=== PATIENT | male | born 1965 | race Caucasian/White ===

== ENCOUNTER 2018-12-03 22:04 | Emergency (ER) | payer BC ==
--- OUTSIDE RECORDS SUMMARY | 2018-12-03 22:07 | XMS REPORT | Clinical Summary ---
:1965 Author Organization [facility] Address [address] [place] [address] Care Team Providers Name Role Phone Silvia Kincaid MD Primary Care Provider Allergies Active Allergy Reactions Severity Noted Date Comments Александр Inhibitors Hives 04/05/2016 Trazodone Hives 04/05/2016 Hymenoptera Allergenic Anaphylaxis, Shortness Of High 04/05/2016 Extract Breath Medications Medication Sig Dispensed Refills Start End Status Date Date fexofenadine (RAN) 0 Active 180 MG tablet FOLIC 0 09/13/19 Active ACID/MULTIVIT-MIN/LUTEI 01 N (CENTRUM SILVER ORAL) lutein 20 mg capsule 0 Active ascorbic acid, vitamin 0 Active C, (vitamin C) 1000 MG tablet ONETOUCH DELICA LANCETS Inject 1 200 each 1 02/27/20 Active 33 gauge application 17 miscIndications: Type 2 into the skin diabetes mellitus 2 (two) times without complication, a day. for unspecified terminal worker testing insulin use status aspirin (ECOTRIN) 81 MG Take 81 mg by 0 Active enteric coated tablet mouth daily. blood sugar diagnostic One touch 200 strip 1 09/11/19 Active strips (glucose blood) Verio test 18 strip test blood sugar stripsIndications: twice a day Diabetes mellitus without complication (HCC) BD INSULIN PEN NEEDLE USE UNDER THE 90 each 1 10/06/19 Active UF MINI 31 gauge x SKIN ONCE 18 09/27" DAILY needleIndications: Type 2 diabetes mellitus without complication, unspecified intermediate insulin use status esomeprazole (NexIUM) TAKE 1 CAPSULE 90 capsule 3 02/12/20 Active 40 MG DAILY BEFORE 18 capsuleIndications: BREAKFAST Gastroesophageal reflux disease, esophagitis presence not specified dapagliflozin-metformin TAKE 2 TABLETS 180 each 1 03/10/20 Active (XIGDUO XR) 5-1,000 mg DAILY (RETURN 18 tablet, IR & ER, FOR FASTING biphasic LABS ONE WEEK 24hrIndications: Type 2 PRIOR TO diabetes mellitus CLINIC VISIT without complication, WITH DRNava unspecified terminal worker PALASI) insulin use status atorvastatin (LIPITOR) TAKE 1 TABLET 90 tablet 1 10/28/19 Active 10 MG tablet DAILY 19 losartan (COZAAR) 100 TAKE 1 TABLET 90 tablet 1 10/28/19 Active MG tabletIndications: DAILY 19 Type 2 diabetes mellitus without complication (HCC) omega-3 acid ethyl TAKE 1 CAPSULE 180 capsule 1 10/28/19 Active esters (LOVAZA) 1 gram TWICE A DAY 19 capsuleIndications: Hypertriglyceridemia levothyroxine TAKE 1 TABLET 90 tablet 1 10/28/19 Active (SYNTHROID, LEVOXYL) 50 EVERY MORNING 19 mcg tabletIndications: Other specified hypothyroidism insulin GLARGINE Inject 44 15 mL 1 12/04/19 (LANTUS SOLOSTAR) 100 Units under 17 018 unit/mL injection the skin (pen)Indications: Type daily. 2 diabetes mellitus without complication, unspecified intermediate insulin use status atorvastatin (LIPITOR) TAKE 1 TABLET 90 tablet 1 06/20/20 Discontinued 10 MG tablet DAILY 17 018 XIGDUO XR 5-1,000 mg TAKE 2 TABLETS 180 each 1 08/23/19 Discontinued tablet, IR & ER, DAILY 18 018 biphasic 24hrIndications: Type 2 diabetes mellitus without complication, unspecified terminal worker insulin use status levothyroxine TAKE 1 TABLET 90 tablet 1 08/23/19 Discontinued (SYNTHROID, LEVOXYL) 50 EVERY MORNING 18 018 mcg tabletIndications: Other specified hypothyroidism losartan (COZAAR) 100 TAKE 1 TABLET 90 tablet 1 08/23/19 Discontinued MG tabletIndications: DAILY 18 018 Type 2 diabetes mellitus without complication, unspecified terminal worker insulin use status esomeprazole (NexIUM) TAKE 1 CAPSULE 30 capsule 0 08/23/19 Discontinued 40 MG DAILY BEFORE 18 018 capsuleIndications: BREAKFAST Gastroesophageal reflux disease with esophagitis hydrOXYzine (ATARAX) 25 Take 25 mg by 0 09/09/19 Discontinued MG tablet mouth daily. 18 019 ibuprofen-famotidine Take by mouth 0 Discontinued (DUEXIS) 800-26.6 mg 2 (two) times 019 tablet a day. omega-3 acid ethyl Take 1 capsule 180 capsule 1 09/11/19 Discontinued esters (LOVAZA) 1 gram (1 g total) by 18 018 capsuleIndications: mouth 2 (two) Hypertriglyceridemia times a day. hydrOXYzine (VISTARIL) Take 25 mg by 0 Discontinued 25 MG capsule mouth 3 019 (three) times a day as needed for itching. traZODone (DESYREL) 100 Take 100 mg by 0 Discontinued MG tablet mouth nightly. 018 esomeprazole (NexIUM) TAKE 1 CAPSULE 30 capsule 0 02/12/20 Discontinued 40 MG DAILY BEFORE 18 018 capsuleIndications: BREAKFAST Gastroesophageal reflux disease, esophagitis presence not specified losartan (COZAAR) 100 TAKE 1 TABLET 90 tablet 0 02/18/20 Discontinued MG tabletIndications: DAILY 18 018 Type 2 diabetes mellitus without complication, unspecified terminal worker insulin use status levothyroxine TAKE 1 TABLET 90 tablet 0 02/18/20 Discontinued (SYNTHROID, LEVOXYL) 50 EVERY MORNING 18 018 mcg tabletIndications: Other specified hypothyroidism XIGDUO XR 5-1,000 mg TAKE 2 TABLETS 180 each 0 02/18/20 Discontinued tablet, IR & ER, DAILY (RETURN 18 018 biphasic FOR FASTING 24hrIndications: Type 2 LABS ONE WEEK diabetes mellitus PRIOR TO without complication, CLINIC VISIT unspecified terminal worker WITH insulin use status PALASI) insulin GLARGINE 0 04/05/20 Discontinued (LANTUS SOLOSTAR) 100 16 019 unit/mL injection (pen) omega-3 acid ethyl Take 1 capsule 180 capsule 1 03/10/20 Discontinued esters (LOVAZA) 1 gram (1 g total) by 18 019 capsuleIndications: mouth 2 (two) Hypertriglyceridemia times a day. losartan (COZAAR) 100 Take 1 tablet 90 tablet 1 03/10/20 Discontinued MG tabletIndications: (100 mg total) 18 019 Type 2 diabetes by mouth mellitus without daily. complication, unspecified intermediate insulin use status levothyroxine Take 1 tablet 90 tablet 1 03/10/20 Discontinued (SYNTHROID, LEVOXYL) 50 (50 mcg total) 18 019 mcg tabletIndications: by mouth every Other specified morning. hypothyroidism atorvastatin (LIPITOR) Take 1 tablet 90 tablet 1 03/10/20 Discontinued 10 MG tablet (10 mg total) 18 019 by mouth daily. Active Problems Problem Noted Date Disease of thyroid gland 02/17/2018 Chronic back pain 08/03/2016 Hyperlipidemia 04/05/2016 Essential hypertension 04/05/2016 Non morbid obesity due to excess calories 04/05/2016 Encounters Date Type Specialty Care Team Description 10/25/2018 Refill Silvia Wynne Type 2 diabetes mellitus without complication (HCC); MD [facility] Hypertriglyceridemia; Other specified hypothyroidism 07/28/2018 Office Visit Sivlia Wynne Annual physical exam MD [facility] (Primary Dx) 07/10/2018 Orders Only Internal Medicine ProviderLiya MD 07/09/2018 Orders Only Silvia Wynne Type 2 diabetes mellitus without complication, unspecified whether intermediate insulin use (HCC) ( Primary Dx); MD [facility] Prostate cancer screening 05/09/2018 Clinical Support Silvia Wynne Need for influenza MD [facility] vaccination (Primary Dx) 03/10/2018 Lab Lab Silvia Kincaid Other specified MD [facility] hypothyroidism 03/10/2018 Office Visit Silvia Wynne Essential hypertension (Primary Dx); MD [facility] Type 2 diabetes mellitus without complication, unspecified intermediate insulin use status; Mixed hyperlipidemia; Hypertriglyceridemia; Other specified hypothyroidism 02/27/2018 Orders Only Silvia Wynne MD 02/17/2018 Orders Only Silvia Wynne Type 2 diabetes mellitus without complication, without long-term current use of insulin ( Primary Dx); MD [facility] Disease of thyroid gland 02/17/2018 Refill Silvia Wynne Type 2 diabetes mellitus without complication, unspecified intermediate insulin use status; MD [facility] Other specified hypothyroidism 02/11/2018 Office Visit Gastroenterology Boo Harper Gastroesophageal reflux disease, esophagitis presence not specified (Primary Dx); MD Amauri Gastroesophageal reflux disease with esophagitis after 12/02/2017 Immunizations Name Dates Previously Given Next Due FLUBLOK QUAD PF 05/09/2018 INFLUENZA QUAD PF 04/05/2016 Pneumococcal Conjugate 13-Valent 08/03/2016 Social History Tobacco Use Types Packs/Day Years Used Date Former Smoker Cigarettes 0.5 29 1983 - 05/14/2013 Smokeless Tobacco: Never Used Alcohol Use Drinks/Week oz/Week Comments Yes 2 Standard drinks or equivalent 2 drinks of vodka per week Sex Assigned at Date Recorded Not on file Job Start Date Occupation Industry Not on file Not on file Not on file Travel History Travel Start Travel End No recent travel history available. Last Filed Vital Signs Vital Sign Reading Time Taken Blood Pressure 155/88 07/28/2018 3:26 PM MATERIAL MANAGER Pulse 71 07/28/2018 3:26 PM MATERIAL MANAGER Temperature 36.8 C (98.3 F) 07/28/2018 3:26 PM MATERIAL MANAGER Respiratory Rate - - Oxygen Saturation 99% 07/28/2018 3:26 PM MATERIAL MANAGER Inhaled Oxygen Concentration - - Weight 80.7 kg (178 lb) 07/28/2018 3:26 PM MATERIAL MANAGER Height 177.8 cm (5' 10") 07/28/2018 3:26 PM MATERIAL MANAGER Body Mass Index 25.54 07/28/2018 3:26 PM MATERIAL MANAGER Plan of Treatment Date Type Specialty Care Team Description 01/23/2019 Office Visit Family Medicine Silvia Kincaid MD [address] [facility] [address] [place] [address] 03/04/2019 Office Visit Gastroenterology Boo Harper MD [address] [facility] [address] [facility] [place] [address] Health Maintenance Due Date Last Done Comments SHINGLES VACCINES (#1) 2016 DIABETIC FOOT EXAM 09/11/2018 09/11/2017, 09/11/2017, 05/03/2016 INFLUENZA VACCINE 02/12/2019 05/09/2018, 04/05/2016, 04/05/2016 DIABETIC RETINAL EYE EXAM 07/03/2019 07/03/2017, 08/22/2016 URINE MICROALBUMIN 07/12/2019 07/12/2018, 05/20/2017, 05/03/2016, Additional history exists COLON CANCER SCREENING 06/20/2026 06/20/2016 Procedures Procedure Name Priority Date/Time Associated Diagnosis Comments ECG 12-LEAD Routine 07/28/2018 4:07 Annual physical exam Results for this PM MATERIAL MANAGER procedure are in the results section. POC OCCULT BLOOD Routine 07/28/2018 4:01 Annual physical exam Results for this STOOL PM MATERIAL MANAGER procedure are in the results section. CBC WITH PLATELET AND Routine 07/12/2018 8:11 Type 2 diabetes Results for this DIFFERENTIAL AM MATERIAL MANAGER mellitus without procedure are in complication, the results unspecified whether section. intermediate insulin use (HCC) COMPREHENSIVE Routine 07/12/2018 8:11 Type 2 diabetes Results for this METABOLIC PANEL AM MATERIAL MANAGER mellitus without procedure are in complication, the results unspecified whether section. terminal worker insulin use (HCC) HEMOGLOBIN A1C Routine 07/12/2018 8:11 Type 2 diabetes Results for this AM MATERIAL MANAGER mellitus without procedure are in complication, the results unspecified whether section. intermediate insulin use (HCC) LIPID PANEL Routine 07/12/2018 8:11 Type 2 diabetes Results for this AM MATERIAL MANAGER mellitus without procedure are in complication, the results unspecified whether section. intermediate insulin use (HCC) MICROALBUMIN / Routine 07/12/2018 8:11 Type 2 diabetes Results for this CREATININE URINE AM MATERIAL MANAGER mellitus without procedure are in RATIO complication, the results unspecified whether section. terminal worker insulin use (HCC) PROSTATE SPECIFIC Routine 07/12/2018 8:11 Type 2 diabetes Results for this ANTIGEN AM MATERIAL MANAGER mellitus without procedure are in complication, the results unspecified whether section. intermediate insulin use (HCC) Prostate cancer screening URINALYSIS, AUTOMATED Routine 07/12/2018 8:11 Type 2 diabetes Results for this WITH MICROSCOPY AM MATERIAL MANAGER mellitus without procedure are in complication, the results unspecified whether section. terminal worker insulin use (HCC) OBTAIN MEDICAL Routine 07/10/2018 RECORDS THYROID STIMULATING Routine 03/10/2018 2:22 Other specified Results for this HORMONE PM CDT hypothyroidism procedure are in the results section. HEMOGLOBIN A1C Routine 02/27/2018 9:31 Results for this AM CDT procedure are in the results section. CBC WITH PLATELET AND Routine 02/27/2018 9:31 Results for this DIFFERENTIAL AM CDT procedure are in the results section. COMPREHENSIVE Routine 02/27/2018 9:31 Results for this METABOLIC PANEL AM CDT procedure are in the results section. LIPID PANEL Routine 02/27/2018 9:31 Results for this AM CDT procedure are in the results section. after 12/02/2017 Results ECG 12 lead (07/28/2018 4:07 PM MATERIAL MANAGER) Ventricular rate 60 [facility] Atrial rate 60 [facility] MD interval 148 [facility] QRSD interval 92 [facility] QT interval 410 [facility] QTC interval 410 [facility] P axis 1 55 [facility] QRS axis 1 16 [facility] T wave axis 42 [facility] EKG impression Normal sinus HM MUSE rhythm-Normal ECG-In automated comparison with ECG of 11-SEP-2017 11:51,-No significant change was found- Specimen Narrative Performed At Performing Organization Address City/State/Zipcode Phone Number [facility] [place] [address] [place] [address] POC occult blood stool (07/28/2018 4:01 PM MATERIAL MANAGER) Pathologist [facility] Fecal Occult Blood Negative Negative Specimen Stool Microalbumin / creatinine urine ratio (07/12/2018 8:11 AM MATERIAL MANAGER) Pathologist [facility] Creatinine, 218 20 - 320 [place] urine, random mg/dL [place] Microalbumin, 1.0 See Note: [facility] urine Comment: mg/dL [place] Reference Range: Reference Range Not established Microalbumin/crea 5 <30 mcg/mg [facility] tinine ratio Comment: creat [place] The ADA defines abnormalities in albumin excretion as follows: Category Result (mcg/mg creatinine) Normal<30 Microalbuminuria 30-299 Clinical albuminuria > UV=189 The ADA recommends that at least two of three specimens collected within a 3-6 month period be abnormal before considering a patient to be within a diagnostic category. Specimen Urine Narrative Performed At FASTING:YES [facility] FASTING: YES Resulting Agency Comment Performing Organization Information: Site ID: [id number] Name: [facility] Address: [address] [place] [phone] Director: Renetta Dacosta Performing Organization Address City/State/Zipcode Phone Number [facility] [place] [address] [place] [phone] Urinalysis, automated with microscopy (07/12/2018 8:11 AM MATERIAL MANAGER) Pathologist [facility] Color, UA DARK YELLOW YELLOW [facility] [place] Appearance CLEAR CLEAR [facility] [place] Specific gravity, 1.039 (H) 1.001 - 1.035 [facility] urine [place] pH, urine 5.5 5.0 - 8.0 [facility] [place] Glucose, urine 2+ (A) NEGATIVE [facility] [place] Bilirubin, UA NEGATIVE NEGATIVE [facility] [place] Ketones, UA TRACE (A) NEGATIVE [facility] [place] Occult blood, urine NEGATIVE NEGATIVE [facility] [place] Protein, UA NEGATIVE NEGATIVE [facility] [place] Nitrite, UA NEGATIVE NEGATIVE [facility] [place] Leukocyte esterase, NEGATIVE NEGATIVE [facility] UA [place] WBC, UA NONE SEEN < OR=5 /HPF [facility] [place] RBC, UA NONE SEEN < OR=2 /HPF [facility] [place] Squamous epithelial NONE SEEN < OR=5 /HPF [facility] cells, UA [place] Bacteria, UA NONE SEEN NONE SEEN /HPF [facility] [place] Hyaline casts, UA NONE SEEN NONE SEEN /LPF [facility] [place] Specimen Urine Narrative Performed At FASTING:YES [facility] FASTING: YES Resulting Agency Comment Performing Organization Information: Site ID: [id number] Name: [facility] Address: [address] [place] [phone] Director: Renetta Dacosta Performing Organization Address City/State/Zipcode Phone Number [facility] [place] [address] [place], [place] [id number] CBC with platelet and differential (07/12/2018 8:11 AM MATERIAL MANAGER)Only the most recent of2 resultswithin the time period is included. WBC 6.4 3.8 - 10.8 [facility] Thousand/uL [place] RBC 4.45 4.20 - 5.80 [facility] Million/uL [place] HGB 16.0 13.2 - 17.1 [facility] g/dL [place] HCT 45.9 38.5 - 50.0 % [facility] [place] MCV 103.1 (H) 80.0 - 100.0 [facility] fL [place] MCH 36.0 (H) 27.0 - 33.0 pg [facility] [place] MCHC 34.9 32.0 - 36.0 [facility] g/dL [place] RDW 12.3 11.0 - 15.0 % [facility] [place] Platelet count 239 140 - 400 [facility] Thousand/uL [place] MPV 10.7 7.5 - 12.5 fL [facility] [place] Neutrophils, absolute 2,630 1,500 - 7,800 [facility] cells/uL [place] Lymphocytes, absolute 2,362 850 - 3,900 [facility] cells/uL [place] Monocytes, absolute 691 200 - 950 [facility] cells/uL [place] Eosinophils, absolute 634 (H) 15 - 500 [facility] cells/uL [place] Basophils, absolute 83 0 - 200 [facility] cells/uL [place] Neutrophils 41.1 % [facility] [place] Lymphocytes 36.9 % [facility] [place] Monocytes 10.8 % [facility] [place] Eosinophils 9.9 % [facility] [place] Basophils + RC 1.3 % [facility] [place] Specimen Blood Narrative Performed At FASTING:YES [facility] FASTING: YES Resulting Agency Comment Performing Organization Information: Site ID: [facility] Name: [facility] Address: [address] [place] [phone] Director: Renetta Dacosta Performing Organization Address [facility] Phone Number [facility] [place] [address] Prostate specific antigen (07/12/2018 8:11 AM MATERIAL MANAGER) PSA 1.0 < OR=4.0 [facility] Comment: ng/mL [place] The total PSA value from this assay system is standardized against the WHO standard. The test result will be approximately 20% lower when compared to the equimolar-standardized total PSA (Rupinder [place]). Comparison of serial PSA results should be interpreted with this fact in mind. This test was performed using the Siemens chemiluminescent method. Values obtained from different assay methods cannot be used interchangeably. PSA levels, regardless of value, should not be interpreted as absolute evidence of the presence or absence of disease. Specimen Blood Narrative Performed At FASTING:YES [facility] FASTING: YES Resulting Agency Comment Performing Organization Information: Site ID: [facility] Name: [facility] Address: [address] [place] [phone] Director: Renetta Dacosta Performing Organization Address [facility] Phone Number [facility] [place] [address] [address] Hemoglobin A1c (07/12/2018 8:11 AM MATERIAL MANAGER)Only the most recent of2 resultswithin the time period is included. Hemoglobin A1C 5.1 <5.7 % of [facility] Comment: total Hgb [place] For the purpose of screening for the presence of diabetes: <5.7% Consistent with the absence of diabetes 5.7-6.4%Consistent with increased risk for diabetes (prediabetes) > or=6.5%Consistent with diabetes This assay result is consistent with a decreased risk of diabetes. Currently, no consensus exists regarding use of hemoglobin A1c for diagnosis of diabetes in children. According to [place] Diabetes Association (ADA) guidelines, hemoglobin A1c <7.0% represents optimal control in non- diabetic patients. Different metrics may apply to specific patient populations. Standards of Medical Care in Diabetes(ADA). Specimen Blood Narrative Performed At FASTING:YES [facility] FASTING: YES Resulting Agency Comment Performing Organization Information: Site ID: [facility] Name: [facility] Address: [address] [place] [phone] Director: Renetta Dacosta Performing Organization Address City/State/Zipcode Phone Number [facility] [place] [address] [address] Lipid panel (07/12/2018 8:11 AM MATERIAL MANAGER)Only the most recent of2 resultswithin the time period is included. [facility] Cholesterol, total 154 <200 mg/dL [facility] [place] HDL cholesterol 91 >40 mg/dL [facility] [place] Triglycerides 120 <150 mg/dL [facility] [place] LDL cholesterol 42 mg/dL (calc) [facility] calculated Comment: [place] Reference range: <100 Desirable range <100 mg/dL for primary prevention; <70 mg/dL for patients with CHD or diabetic patients with > or=2 CHD risk factors. LDL-C is now calculated using the Gus-Hortencia calculation, which is a validated novel method providing better accuracy than the Friedewald equation in the estimation of LDL-C. Gus DELGADO et al. AMANDO. 2013;310(19): 5395-7778 (http://education.Freeppie.Relevant e-solution/faq/TKI803) Cholesterol/HDL 1.7 <5.0 (calc) [facility] Non-HDL cholesterol 63 <130 mg/dL [place] Comment: (calc) [place] For patients with diabetes plus 1 major ASCVD risk factor, treating to a non-HDL-C goal of <100 mg/dL (LDL-C of <70 mg/dL) is considered a therapeutic option. Specimen Blood Narrative Performed At FASTING:YES [facility] FASTING: YES Resulting Agency Comment Performing Organization Information: Site ID: [id number] Name: [facility] Address: [address] [place] [phone] Director: Renetta Dacosta Performing Organization Address City/State/Zipcode Phone Number [facility] [place] [address] [place] [address] Comprehensive metabolic panel (07/12/2018 8:11 AM MATERIAL MANAGER)Only the most recent of2 resultswithin the time period is included. Glucose 107 (H) 65 - 99 [facility] Comment: mg/dL [place] Fasting reference interval For someone without known diabetes, a glucose value between 100 and 125 mg/dL is consistent with prediabetes and should be confirmed with a follow-up test. BUN, whole blood 10 7 - 25 mg/dL [facility] [place] Creatinine 1.01 0.70 - 1.33 [facility] Comment: mg/dL [place] For patients >49 years of age, the reference limit for Creatinine is approximately 13% higher for people identified as -Serbian. EGFR Non-Afr. 86 > OR=60 [facility] Serbian mL/min/1.73m [place] 2 EGFR 99 > OR=60 [facility] Serbian mL/min/1.73m [place] 2 BUN/creatinine NOT APPLICABLE 6 - 22 [facility] ratio (calc) [place] Sodium 141 135 - 146 [facility] mmol/L [place] Potassium 4.3 3.5 - 5.3 [facility] mmol/L [place] Chloride 105 98 - 110 [facility] mmol/L [place] CO2 26 20 - 32 [facility] mmol/L [place] Calcium 9.7 8.6 - 10.3 [facility] mg/dL [place] Protein 7.0 6.1 - 8.1 [facility] g/dL [place] Albumin, S 4.3 3.6 - 5.1 [facility] g/dL [place] Globulin, total 2.7 1.9 - 3.7 [facility] g/dL (calc) [place] Albumin/globulin 1.6 1.0 - 2.5 [facility] ratio (calc) [place] Total bilirubin 0.7 0.2 - 1.2 [facility] mg/dL [place] Alkaline 46 40 - 115 U/L [facility] phosphatase [place] AST 47 (H) 10 - 35 U/L [facility] [place] ALT 44 9 - 46 U/L [facility] [place] Specimen Blood Narrative Performed At FASTING:YES [facility] FASTING: YES Resulting Agency Comment Performing Organization Information: Site ID: [id number] Name: [facility] Address: [address] [place] [phone] Director: Renetta Dacosta Performing Organization Address City/State/Zipcode Phone Number [facility] [place] [address] [place] [phone] Obtain medical records (07/10/2018) Narrative Performed At Thyroid stimulating hormone (03/10/2018 2:22 PM CDT) TSH 0.64 0.40 - 4.50 mIU/L [facility] [place] Specimen Blood Resulting Agency Comment Performing Organization Information: Site ID: [id number] Name: [facility] Address: [address] [place] [phone] Director: Renetta Dacosta Performing Organization Address City/State/[facility] Phone Number [facility] [place] [address] [place] [phone] after 12/02/2017 Advance Directives Patient has advance care planning documents on file. For more information, please contact:[place] [address]
--- NOTE | 2018-12-03 23:52 | EDPHYS ---
Physician Documentation [facility] Name: Mack Charles Age: 53 yrs Sex: Male : 1965 Arrival Date: 12/03/2018 Time: 22:08 Bed 8 Private MD: ED Physician Nickolas Castillo HPI: 12/03 22:45 This 53 yrs old Male presents to ER via Ambulatory with complaints of Leg cp Pain. 22:45 The patient presents with pain, that is acute, tenderness, bruising. The complaints cp affect the medial aspect of right calf and right bob. Context: resulted from an unknown cause, the patient can fully bear weight, the patient is able to ambulate, without difficulty. Onset: The symptoms/episode began/occurred yesterday. Modifying factors: the symptoms are aggravated by weight bearing. Associated signs and symptoms: Pertinent negatives fever, swelling, warmth. Treatment prior to arrival includes: no previous treatment. Historical: - Allergies: 22:14 AYANNA INHIBITORS (Hives); ed1 22:14 Trazodone (Hives); ed1 22:14 Bees (Anaphylaxis); ed1 - Home Meds: 22:14 Yuki Allergy 180 mg Oral tab 1 tab once daily for Seasonal Allergic Rhinitis ed1 [Active]; aspirin 81 mg oral chew 1 tab once daily [Active]; levothyroxine 50 mcg tab 1 tab once daily for Hypothyroidism [Active]; Vitamin C 1,000 mg Oral tab [Active]; Centrum Silver 400-250 mcg Oral chew [Active]; lutein 20 mg Oral cap daily [Active]; Xigduo XR 5-1,000 mg Oral TBph 1 tab once daily for Type 2 Diabetes Mellitus [Active]; losartan 100 mg Oral tab 1 tab once daily for Hypertension [Active]; atorvastatin 10 mg Oral tab 1 tab once daily [Active]; esomeprazole magnesium 40 mg Oral cpDR 1 cap once daily for Heartburn [Active]; - PMHx: 22:14 acid reflux; Diabetes - IDDM; Hyperlipidemia; Hypertension; Hypothyroidism; ed1 - PSHx: 22:14 eye surgery; Hernia repair; left leg; right arm; ed1 - Immunization history:: Adult Immunizations up to date. - Social history:: Smoking status: Patient/guardian denies using tobacco. - Ebola Screening: : Patient negative for fever greater than or equal to 101.5 degrees Fahrenheit, and additional compatible Ebola Virus Disease symptoms Patient denies exposure to infectious person Patient denies travel to an Ebola-affected area in the 21 days before illness onset No symptoms or risks identified at this time. ROS: 22:50 Constitutional: Negative for body aches, chills, fever. cp 22:50 Eyes: Negative for injury, pain, redness, and discharge. cp 22:50 Cardiovascular: Negative for chest pain, palpitations. 22:50 Respiratory: Negative for cough, shortness of breath, wheezing. 22:50 Abdomen/GI: Negative for abdominal pain, nausea, vomiting, and diarrhea. 22:50 MS/extremity: Positive for pain, tenderness, of the right bob and medial aspect of right calf, bruising. 22:50 Skin: Negative for cellulitis, rash. 22:50 Neuro: Negative for headache, weakness. 22:50 All other systems are negative. Exam: 23:00 Constitutional: The patient appears in no acute distress, alert, awake, non-toxic, well cp developed, well nourished. 23:00 Head/Face: Normocephalic, atraumatic. cp 23:00 Chest/axilla: Inspection: normal. 23:00 Cardiovascular: Rate: normal. 23:00 Respiratory: the patient does not display signs of respiratory distress, Respirations: normal, no use of accessory muscles, no retractions, no tachypnea. 23:00 Back: pain, is absent, ROM is normal. 23:00 Musculoskeletal/extremity: Extremities: grossly normal except: noted in the right bob and medial aspect of right calf: tenderness, There is no evidence of erythema, rash, swelling, Perfusion: the extremity is normally perfused throughout, Sensation intact. 23:00 Skin: cellulitis, is not appreciated, no rash present. Vital Signs: 22:14 BP 116 / 67; Pulse 82; Resp 15; Temp 96.8(TE); Pulse Ox 96% on R/A; Weight 75.75 kg; ed1 Height 5 ft. 11 in. (180.34 cm); Pain 8/10; 23:37 BP 90 / 59; Pulse 58; Resp 15; Temp 97.9; Pulse Ox 96% on R/A; ak1 22:14 Body Mass Index 23.29 (75.75 kg, 180.34 cm) ed1 MDM: 22:35 Patient medically screened. cp 23:50 ED course: xrays of right tib/fib negative for fracture. cp 23:50 ED course: preliminary US report negative for DVT. cp 23:51 Data reviewed: vital signs, nurses notes, radiologic studies, plain films, ultrasound, cp and as a result, I will discharge patient. 23:51 Differential diagnosis: closed fracture, contusion, DVT, cellulitis. Test cp interpretation: by ED physician or midlevel provider: plain radiologic studies, xrays of right tib/fib negative for fracture. Counseling: I had a detailed discussion with the patient and/or guardian regarding: the historical points, exam findings, and any diagnostic results supporting the discharge/admit diagnosis, radiology results, the need for outpatient follow up, a family practitioner, to return to the emergency department if symptoms worsen or persist or if there are any questions or concerns that arise at home. 12/03 22:40 Order name: US Extremity Venous Unilateral Ltd cp 12/03 22:40 Order name: XRAY Tib Fib RIGHT cp Administered Medications: No medications were administered Disposition: 12/04 22:47 Co-signature as Attending Physician, Nickolas Castillo MD. Disposition: 12/03/18 23:52 Discharged to Home. Impression: Pain in right lower leg. - Condition is Stable. - Discharge Instructions: Musculoskeletal Pain. - Prescriptions for Naprosyn 500 mg Oral Tablet - take 1 tablet by ORAL route 2 times per day take with food; 20 tablet. - Medication Reconciliation Form, Thank You Letter, Antibiotic Education, Prescription Opioid Use form. - Follow up: Private Physician; When: 2 - 3 days; Reason: Worsening of condition. - Problem is new. - Symptoms have improved. Signatures: Dispatcher [employer] EDMS Tana Ng RN RN ed1 Sheba Vega RN RN ak1 Ellis Zepeda PA PA cp Nickolas Castillo MD MD Corrections: (The following items were deleted from the chart) 00:05 12/03 23:52 12/03/2018 23:52 Discharged to Home. Impression: Pain in right lower leg. ak1 Condition is Stable. Forms are Medication Reconciliation Form, Thank You Letter, Antibiotic Education, Prescription Opioid Use. Follow up: Private Physician; When: 2 - 3 days; Reason: Worsening of condition. Problem is new. Symptoms have improved. cp
--- NOTE | 2018-12-03 23:52 | ER ---
Nurse's Notes [facility] Name: Mack Charles Age: 53 yrs Sex: Male : 1965 Arrival Date: 12/03/2018 Time: 22:08 Bed 8 Private MD: Diagnosis: Pain in right lower leg Presentation: 12/03 22:08 Presenting complaint: Patient states: I think I hit my leg on something yesterday and ed1 today it is bruising and hurting worse. Transition of care: patient was not received from another setting of care. Onset of symptoms was December 02, 2018. Risk Assessment: Do you want to hurt yourself or someone else? Patient reports no desire to harm self or others. Initial Sepsis Screen: Does the patient meet any 2 criteria? No. Patient's initial sepsis screen is negative. Does the patient have a suspected source of infection? No. Patient's initial sepsis screen is negative. Care prior to arrival: None. 22:08 Method Of Arrival: Ambulatory ed1 22:08 Acuity: [place] 4 ed1 Triage Assessment: 22:14 General: Appears in no apparent distress. Behavior is calm, cooperative. Pain: ed1 Complains of pain in right leg Pain currently is 8 out of 10 on a pain scale. Historical: - Allergies: 22:14 AYANNA INHIBITORS (Hives); ed1 22:14 Trazodone (Hives); ed1 22:14 Bees (Anaphylaxis); ed1 - Home Meds: 22:14 Yuki Allergy 180 mg Oral tab 1 tab once daily for Seasonal Allergic Rhinitis ed1 [Active]; aspirin 81 mg oral chew 1 tab once daily [Active]; levothyroxine 50 mcg tab 1 tab once daily for Hypothyroidism [Active]; Vitamin C 1,000 mg Oral tab [Active]; Centrum Silver 400-250 mcg Oral chew [Active]; lutein 20 mg Oral cap daily [Active]; Xigduo XR 5-1,000 mg Oral TBph 1 tab once daily for Type 2 Diabetes Mellitus [Active]; losartan 100 mg Oral tab 1 tab once daily for Hypertension [Active]; atorvastatin 10 mg Oral tab 1 tab once daily [Active]; esomeprazole magnesium 40 mg Oral cpDR 1 cap once daily for Heartburn [Active]; - PMHx: 22:14 acid reflux; Diabetes - IDDM; Hyperlipidemia; Hypertension; Hypothyroidism; ed1 - PSHx: 22:14 eye surgery; Hernia repair; left leg; right arm; ed1 - Immunization history:: Adult Immunizations up to date. - Social history:: Smoking status: Patient/guardian denies using tobacco. - Ebola Screening: : Patient negative for fever greater than or equal to 101.5 degrees Fahrenheit, and additional compatible Ebola Virus Disease symptoms Patient denies exposure to infectious person Patient denies travel to an Ebola-affected area in the 21 days before illness onset No symptoms or risks identified at this time. Screenin:29 Abuse screen: Denies threats or abuse. Denies injuries from another. Nutritional ak1 screening: No deficits noted. Tuberculosis screening: No symptoms or risk factors identified. Fall Risk None identified. Assessment: 22:30 Reassessment: pt ambulated to ER8 from ER lobby with steady gait. ak1 23:36 Reassessment: Patient appears in no apparent distress at this time. No changes from ak1 previously documented assessment. Patient and/or family updated on plan of care and expected duration. Pain level reassessed. Patient is alert, oriented x 3, equal unlabored respirations, skin warm/dry/pink. 23:37 General: Appears in no apparent distress. Behavior is calm, cooperative. Pain: ak1 Complains of pain in right leg. Neuro: No deficits noted. Cardiovascular: No deficits noted. Respiratory: No deficits noted. GI: No signs and/or symptoms were reported involving the gastrointestinal system. : No signs and/or symptoms were reported regarding the genitourinary system. EENT: No signs and/or symptoms were reported regarding the EENT system. Derm: Bruising that is multiple small bruises noted to right lower leg in different stages of healing. . Musculoskeletal: Range of motion: intact in all extremities. Vital Signs: 22:14 BP 116 / 67; Pulse 82; Resp 15; Temp 96.8(TE); Pulse Ox 96% on R/A; Weight 75.75 kg; ed1 Height 5 ft. 11 in. (180.34 cm); Pain 8/10; 23:37 BP 90 / 59; Pulse 58; Resp 15; Temp 97.9; Pulse Ox 96% on R/A; ak1 22:14 Body Mass Index 23.29 (75.75 kg, 180.34 cm) ed1 ED Course: 22:08 Patient arrived in ED. ed1 22:11 Triage completed. ed1 22:14 Arm band placed on right wrist. ed1 22:17 Sheba Vega, RN is Primary Nurse. ak1 22:34 Ellis Zepeda PA is PHCP. cp 22:35 Ellis Zepeda PA is PHCP. cp 22:35 Nickolas Castillo MD is Attending Physician. cp 22:43 Radiology exam delayed due to ultrasound in room. bb2 22:55 US Extremity Venous Unilateral Ltd In Process Unspecified. EDMS 22:59 XRAY Tib Fib RIGHT In Process Unspecified. EDMS 23:38 Patient has correct armband on for positive identification. Bed in low position. Call ak1 light in reach. Side rails up X 1. Adult w/ patient. Pulse ox on. NIBP on. 12/04 00:05 No provider procedures requiring assistance completed. Patient did not have IV access ak1 during this emergency room visit. Administered Medications: No medications were administered Outcome: 12/03 23:52 Discharge ordered by . cp 12/04 00:05 Discharged to home ambulatory, with family. ak1 Condition: good Discharge instructions given to patient, family, Instructed on discharge instructions, follow up and referral plans. no drinking with medication, no driving heavy equipment, medication usage, Demonstrated understanding of instructions, follow-up care, medications, Prescriptions given X 1. 00:05 Patient left the ED. ak1 Signatures: Dispatcher [employer] EDMS Tana Ng RN RN ed1 Sheba Vega, RN RN ak1 Ellis Zepeda PA PA Susan Salas bb2
[2018-12-04 00:59] VITALS: O2SAT 96
[2018-12-04 01:01] VITALS: BP 90/59; TEMP 97.9
--- NOTE | 2018-12-04 07:10 | RAD REPORT ---
EXAM DESCRIPTION: US - Extremity Venous Uni Ltd - 12/03/2018 10:56 pm CLINICAL HISTORY: Right leg pain and swelling COMPARISON: None. TECHNIQUE: Real-time sonographic evaluation of the right lower extremity deep venous systems was per formed. FINDINGS: Normal compressibility, flow augmentation, phasic flow and spontaneous flow are identified in the right lower extremity common femoral, superficial femoral, popliteal and posterior tibial vei ns. No intraluminal filling defects seen. IMPRESSION: No DVT in the right lower extremity.
--- NOTE | 2018-12-04 08:03 | RAD REPORT ---
EXAM DESCRIPTION: RAD - Tib Fib Right - 12/03/2018 11:03 pm CLINICAL HISTORY: Persistent leg pain following blunt force trauma COMPARISON: None. FINDINGS: No fracture is identified. There is no dislocation or periosteal reaction noted. No acute or suspicious bony finding. No foreign body or other soft tissue abnormality. IMPRESSION: Negative right tibia & fibula examination.
== END 2018-12-04 00:05 | disposition home or self-care (01) ==
LOC: ER 22:04
DX: M79.661 Pain in right lower leg (principal); I10 Essential (primary) hypertension; E03.9 Hypothyroidism, unspecified; E11.9 Type 2 diabetes mellitus without complications; E78.5 Hyperlipidemia, unspecified; J30.2 Other seasonal allergic rhinitis; Z79.82 Long term (current) use of aspirin; Z88.5 Allergy status to narcotic agent; Z88.8 Allergy status to other drugs, medicaments and biological substances; Z91.030 Bee allergy status
CPT/HCPCS: 93971; 99283

== ENCOUNTER 2019-11-04 11:44 | Emergency (ER) | payer BC ==
--- OUTSIDE RECORDS SUMMARY | 2019-11-04 11:46 | XMS REPORT | Summary of Care ---
:1965 Author Organization [facility] [place] [address] Care Team Providers Name Role Phone Unavailable Primary Care Provider Unavailable Reason for Visit Reason Comments Eczema Encounter Details Date Type Department Care Team Description 02/23/2019 Office Visit [facility] Dermat Blake Rm MD Eczema [address] [facility] [id number] [place] [address] [address] [place], [place] [address] [phone] Allergies Active Allergy Reactions Severity Noted Date Comments Александр Inhibitors 06/24/2017 Trazodone And Nefazodone 06/24/2017 documented as of this encounter (statuses as of 02/23/2019) Medications Medication Sig Dispensed Refills Start Date End Date Status Ascorbic Acid (VITAMIN Take 1,000 mg by 0 Active C) 1000 MG TABS mouth. esomeprazole (NEXIUM) Take 40 mg by 0 Active 40 MG capsule mouth. fexofenadine (RAN) Take 180 mg by 0 Active 180 MG tablet mouth. losartan (COZAAR) 100 Take 100 mg by 0 Active MG tablet mouth. Lutein 20 MG CAPS Take by mouth. 0 Active atorvastatin (LIPITOR) TAKE 1 TABLET 0 06/20/2017 Active 10 MG tablet DAILY tacrolimus (PROTOPIC) Apply to upper 30 g 0 09/16/2018 Active 0.1 % eyelid rash once ointmentIndications: a day for 2 Eczema of left eyelid weeks. aspirin EC 81 MG TBEC Take 81 mg by 0 Active mouth daily. SYNTHROID 50 MCG tablet 0 01/14/2019 Active Multiple Take by mouth. 0 Acti ve Vitamins-Minerals (MULTIVITAL OR) documented as of this encounter (statuses as of 02/23/2019) Active Problems No known active problemsdocumented as of this encounter (statuses as of 02/23/2019) Social History Tobacco Use Types Packs/Day Years Used Date Former Smoker Smokeless Tobacco: Current User Sex Assigned at Date Recorded Not on file Job Start Date Occupation Industry Not on file Not on file Not on file Travel History Travel Start Travel End No recent travel history available. documented as of this encounter Last Filed Vital Signs Vital Sign Reading Time Taken Comments Blood Pressure 111/67 02/23/2019 1:26 PM CDT Pulse 95 02/23/2019 1:26 PM CDT Temperature - - Respiratory Rate - - Oxygen Saturation - - Inhaled Oxygen Concentration - - Weight 77.1 kg (170 lb) 02/23/2019 1:26 PM CDT Height 180.3 cm (5' 11") 02/23/2019 1:26 PM CDT Body Mass Index 23.71 02/23/2019 1:26 PM CDT documented in this encounter Progress Notes Blake Sharp MD - 02/23/2019 1:45 PM CDT Name: Jose Charles Date: 02/23/19 Chief Complaint: Chief Complaint Patient presents with Eczema HPI: Jose Charles is a 53 y.o. male who presents for left upper eyelid eczema. It resolved with Tacrolimus ointment after 2 weeks but it came back. It itches. It resolves when working outside. He did not have any irritation with Tacrolimus ointment. He has not used Tacrolimus ointment since the first2 weeks. He does not have it elsewhere. He had some left tear duct blockage recently per patient which cleared. PMH: (-) for personal history of skin cancer FH: Adopted. Medications: Current Outpatient Medications: Ascorbic Acid (VITAMIN C) 1000 MG TABS, Take 1,000 mg by mouth., Disp: , Rfl: aspirin EC 81 MG TBEC, Take 81 mg by mouth daily., Disp: , Rfl: atorvastatin (LIPITOR) 10 MG tablet, TAKE 1 TABLET DAILY, Disp: , Rfl: esomeprazole (NEXIUM) 40 MG capsule, Take 40 mg by mouth., Disp: , Rfl: fexofenadine (RAN) 180 MG tablet, Take 180 mg by mouth., Disp: , Rfl: losartan (COZAAR) 100 MG tablet, Take 100 mg by mouth., Disp: , Rfl: Lutein 20 MG CAPS, Take by mouth., Disp: , Rfl: Multiple Vitamins-Minerals (MULTIVITAL OR), Take by mouth., Disp: , Rfl: SYNTHROID 50 MCG tablet, , Disp: , Rfl: tacrolimus (PROTOPIC) 0.1 % ointment, Apply to upper eyelid rash once a day for 2 weeks., Disp:30 g, Rfl: 0 ROS: Constitutional: (-) for fevers, (-) for chills Skin: (+) for rash, (+) for pruritus Physical Exam: Vitals: Blood pressure 111/67, pulse 95, height 5' 11" (1.803 m), weight 170 lb (77.1 kg). Constitutional: well developed, well nourished, not diaphoretic, not distressed HEENT: normocephalic, atraumatic Neurologic: alert and oriented. Normal mood and affect. Skin: warm and dry Mildly eczematous erythematous plaque on left upper medial eyelid He declined general skin exam. Assessment and Plan: 1. Eyelid eczema (left) - I advised him to restart Tacrolimus ointment 0.1% daily as needed for a 2-4 weeks until cleared, then 1-2 times a week as needed. Risk of burning sensation and the boxed warning of malignancy discussed. - Moisturize with Vaseline petroleum jelly. - Continue mild products. Return to clinic in 6 months or sooner as needed. Blake Sharp MD documented in this encounter Plan of Treatment Health Maintenance Due Date Last Done Comments COLON CANCER SCREENING: COLONOSCOPY 1965 TETANUS SHOT (ADULT) 1981 HIV SCREENING 1984 FLU VACCINE > 6 MONTHS 02/12/2019 PREVNAR >= 65 (PCV13) 2031 08/03/2016 documented as of this encounter Results Not on filedocumented in this encounter Visit Diagnoses Diagnosis Eczema of left eyelid - Primary Eczematous dermatitis of eyelid documented in this encounter Insurance Payer Benefit Plan / Subscriber ID Effective Dates Phone Addre ss Type Group BLUE CROSS OUT OF STATE xxxxxxxxxxxx Effective for all [address] [facility] - dates [facility] [id number] Guarantor Name Account Type Relation to Date of Phone Billing Patient Address Jose Charles Personal/Family Self 1965 [phone] [address] (Home) [facility] [phone] [place] [address] (Work) documented as of this encounter
--- OUTSIDE RECORDS SUMMARY | 2019-11-04 11:46 | XMS REPORT ---
:1965 Author Organization [facility] t Address [address] [place] [address] Dr. Chambers [address] [place] [address] Care Team Providers Name Role Phone Unavailable Unavailable Unavailable Problems This patient has no known problems. Allergies, Adverse Reactions, Alerts This patient has no known allergies or adverse reactions. Medications This patient has no known medications.
--- OUTSIDE RECORDS SUMMARY | 2019-11-04 11:47 | XMS REPORT | Summary of Care ---
:1965 Author Organization [facility] - [facility] Address [address] [place] [id number] Care Team Providers Name Role Phone Vivien Kincaid Primary Care Provider Reason for Referral MRI/CAT Scan (EDILMA) Status Reason Specialty Diagnoses / Referred By Referred To Procedures Contact Contact New Request Diagnostic Diagnoses Acute intractable headache, unspecified headache type Alok, K Radiology [place] [address] [place] [phone] Radiology Services (EDILMA) Status Reason Specialty Diagnoses / Referred By Referred To Procedures Contact Contact New Request Diagnostic Diagnoses Acute intractable headache, unspecified headache type Alok, K Radiology Procedures [place]R CHEST 1 [place] [address] [place] [phone] Reason for Visit Reason Comments Headache Auth/Cert Status Reason Specialty Diagnoses / Referred By Referred To Procedures Contact Contact Emergency Medicine Ad[facility] Em ergency Dept [address] [facility] [place] [address] Fax: Encounter Details Date Type Department Care Team Description 08/28/2019 Emergency ADC-Emergency Alok, K Noemi, Acute intr actable Department PAC headache, unspecified [address] [place] [address] [place] [address] headache type ([place] [address] ELAINE 5200 Dx) [phone] [place] [address] Allergies Active Allergy Reactions Severity Noted Date Comments Александр Inhibitors Hives 08/28/2019 Bee Sting / Venom Swelling 08/28/2019 Trazodone Hives 08/28/2019 documented as of this encounter (statuses as of 08/28/2019) Medications Medication Sig Dispensed Refills Start Date End Date Status ibuprofen 600 mg Take 1 tablet by 30 tablet 0 08/28/2019 Active tabletIndications: mouth every 6 Acute intractable (six) hours as headache, unspecified needed for Pain headache type (scale 4-6). documented as of this encounter (statuses as of 08/28/2019) Active Problems Not on filedocumented as of this encounter (statuses as of 08/28/2019) Social History Tobacco Use Types Packs/Day Years Used Date Never Assessed Sex Assigned at Date Recorded Not on file Job Start Date Occupation Industry Not on file Not on file Not on file Travel History Travel Start Travel End No recent travel history available. documented as of this encounter Last Filed Vital Signs Vital Sign Reading Time Taken Comments Blood Pressure 153/90 08/28/2019 12:35 PM TICKETING CLERK Pulse 48 08/28/2019 12:35 PM TICKETING CLERK Temperature 36.6 C (97.9 F) 08/28/2019 9:47 AM TICKETING CLERK Respiratory Rate 16 08/28/2019 12:35 PM TICKETING CLERK Oxygen Saturation 100% 08/28/2019 12:35 PM TICKETING CLERK Inhaled Oxygen Concentration - - Weight 81.6 kg (180 lb) 08/28/2019 9:47 AM TICKETING CLERK Height - - Body Mass Index - - documented in this encounter Discharge Instructions AttachmentsThe following attachments cannot be sent through Care Everywhere. Headaches, Self-Care for (Greenlandic)documented in this encounter Plan of Treatment Name Type Priority Associated Diagnoses Order S chedule POCT GLUCOSE(AGE LAB EDILMA Acute intractable ONCE f or 1 Occurrences >30DAYS) headache, unspecified starti ng 08/28/2019 until headache type 08/28/2019 Health Maintenance Due Date Last Done Comments DTaP,Tdap,and Td Vaccines (1 - 1977 Tdap) COLONOSCOPY 2016 Zoster Recombinant Vaccine 2016 (SHINGRIX) (1 of 2) INFLUENZA VACCINE (#1) 2019 PNEUMOCOCCAL 0-64 YEARS COMBINED Aged Out No longer eligible based on SERIES patient's age to complete this topic documented as of this encounter Procedures Procedure Name Priority Date/Time Associated Diagnosis Comme nts CT HEAD WO CONTRAST EDILMA 08/28/2019 11:02 Acute intractable Results for this AM TICKETING CLERK headache, procedure are i n unspecified headache the res ults type section. CBC WITH DIFFERENTIAL STAT 08/28/2019 10:57 Acute intractab le Results for this AM TICKETING CLERK headache, procedure are i n unspecified headache the res ults type section. CBC WITH DIFFERENTIAL Routine 08/28/2019 10:57 Acute intractab le Results for this AM TICKETING CLERK headache, procedure are i n unspecified headache the res ults type section. COMP. METABOLIC PANEL STAT 08/28/2019 10:57 Acute intractab le Results for this (83611) AM TICKETING CLERK headache, procedure are i n unspecified headache the res ults type section. XR CHEST 1 VW EDILMA 08/28/2019 10:47 Acute intractable Resul ts for this AM TICKETING CLERK headache, procedure are i n unspecified headache the res ults type section. CONSENT/REFUSAL FOR Routine 08/28/2019 9:35 DIAGNOSIS AND AM TICKETING CLERK TREATMENT NOTICE OF PRIVACY Routine 08/28/2019 9:35 PRACTICES AM TICKETING CLERK documented in this encounter Results CT HEAD WO CONTRAST (08/28/2019 11:02 AM TICKETING CLERK) Specimen Impressions Performed At PACS/VR/DOSE No acute intracranial abnormality. Preliminary Report Dictated by Resident: Rosmery Prado I, Jones Matta MD., have reviewed this study and a gree with the above report. Narrative Performed At CT HEAD WITHOUT CONTRAST PACS/VR/DOSE HISTORY: 54-year-old male complaining of intermittent headaches that started last night COMPARISON: None. TECHNIQUE: Axial CT of the head was perf ormed and reconstructed at 5 mm intervals. Coronal and sagittal reformat laury images were generated. FINDINGS: No intracranial abnormality such as hemorrhage, edema, mass, mass-effect, midline shift, or extra axial fluid katie ection is appreciated. The ventricles, sulci, and basal cistern s are within normal limits. No hydrocephalus is seen. The minor-white matter differentiation is preserved. The calvarium and skull base are intact. Mild mucoperi osteal thickening of the bilateral maxillary sinuses and ethmoidal air cell s. The remainder of paranasal sinuses and mastoid air cells are clear. Procedure Note [facility], Radiant Results Inft User - 2019 11:[address] HEAD WITHOUT CONTRAST HISTORY: 54-year-old male complaining of intermittent headaches that started last night COMPARISON: None. TECHNIQUE: Axial CT of the head was perf ormed and reconstructed at 5 mm intervals. Coronal and sagittal reformat laury images were generated. FINDINGS: No intracranial abnormality such as hemo rrhage, edema, mass, mass-effect, midline shift, or extra axial fluid katie ection is appreciated. The ventricles, sulci, and basal cistern s are within normal limits. No hydrocephalus is seen. The minor-white matter differentiation is preserved. The calvarium and skull base are intact. Mild mucoperiosteal thickening of the bilateral maxillary sinuses and ethm oidal air cells. The remainder of paranasal sinuses and mastoid air cells are clear. IMPRESSION No acute intracranial abnormality. Preliminary Report Dictated by Resident: Rosmery Prado I, Jones Matta MD., have reviewed [facility] study and agree with the above report. Performing Organization Address City/State/Zipcode Phone Number PACS/VR/DOSE CBC WITH DIFFERENTIAL (08/28/2019 10:57 AM TICKETING CLERK) Pathologist Sig nature WBC 8.43 4.20 - 10.70 [facility] 10*3/L [facility] RBC 3.59 (L) 4.26 - 5.52 [facility] 10*6/L [facility] HGB 12.5 12.2 - 16.4 [facility] g/dL [facility] HCT 36.6 (L) 38.4 - 49.3 % [facility] MCV 101.9 (H) 81.7 - 95.6 fL [facility] MCH 34.8 (H) 26.1 - 32.7 pg [facility] MCHC 34.2 31.2 - 35.0 [facility] g/dL [facility] RDW-SD 45.1 38.5 - 51.6 fL [facility] RDW-CV 11.9 (L) 12.1 - 15.4 % [facility] PLT 189 150 - 328 [facility] 10*3/L [facility] MPV 10.1 9.8 - 13.0 fL [facility] NRBC/100 WBC 0.0 0.0 - 10.0 /100 [facility] WBCs [facility] NRBC x10^3 <0.01 10*3/L [facility] GRAN MAT (NEUT) % 41.9 % [facility] IMM GRAN % 0.20 % [facility] LYMPH % 34.3 % [facility] MONO % 9.6 % [facility] EOS % 13.3 % [facility] BASO % 0.7 % [facility] GRAN MAT x10^3(ANC) 3.53 1.99 - 6.95 [facility] 10*3/uL [facility] IMM GRAN x10^3 <0.03 0.00 - 0.06 [facility] 10*3/uL [facility] LYMPH x10^3 2.89 1.09 - 3.23 [facility] 10*3/uL [facility] MONO x10^3 0.81 0.36 - 1.02 [facility] 10*3/uL [facility] EOS x10^3 1.12 (H) 0.06 - 0.53 [facility] 10*3/uL [facility] BASO x10^3 0.06 0.01 - 0.[address] LABORATORY Specimen Blood - VENOUS Performing Organization Address City/State/Zipcode Phone Number [facility] CLIA: [id number], [address] [place], [place] [address] COMP. METABOLIC PANEL ([id number]) (08/28/2019 10:57 AM TICKETING CLERK) [facility] NA 143 135 - 145 mmol/L [facility] K 3.7 3.5 - 5.0 mmol/L [facility] CL 105 98 - 108 mmol/L [facility] CO2 TOTAL 29 23 - 31 mmol/L [facility] AGAP 9 2 - 16 [facility] BUN 14 7 - 23 mg/dL [facility] GLUCOSE 95 70 - 110 mg/dL [facility] CREATININE 0.89 0.60 - 1.25 [facility]/dL [facility] TOTAL BILI 0.5 0.1 - 1.1 mg/dL [facility] CALCIUM 10.0 8.6 - 10.6 mg/dL [facility] T PROTEIN 7.5 6.3 - 8.2 g/dL [facility] ALBUMIN 4.7 3.5 - 5.0 g/dL [facility] ALK PHOS 46 34 - 122 U/L [facility] ALTv 22 5 - 50 U/L [facility] AST(SGOT) 33 13 - 40 U/L [facility] eGFR Calculation 89.4 mL/min/1.73m2 [facility] (Non-) [facility] eGFR Calculation 108.4 mL/min/1.73m2 [facility] () [facility] Specimen Blood - VENOUS Narrative Performed At [facility] of Glomerular Filtration Rate (GFR) [facility] and Staging of Kidney Disease* + + +- + | GFR (mL/min/1.73 m2) | With Kidney Damage | Without Kidney Damage + + +- + | >90 | Stage one | Normal + + +- + | 60-89 | Stage two | Decreased GFR + + +- + | 30-59 | Stage three | Stage three + + +- + | 15-29 | Stage four | Stage four + + +- + | <15 (or dialysis) | Stage five | Stage five + + +- + *Each stage assumes the associated GFR level has been in effect for at least three months. Stages 1 to 5, with or without kidney disease, indicate chronic kidney disease. Notes: Determination of stages one and two (with eGFR >59mL/min/1.73 m2) requires estimation of kidney damage for at least three months as defined by structural or functional abnormalities of the kidney, manifested by either: Pathological abnormalities or Markers of kidney damage (including abnormalities in the composition of the blood or urine or abnormalities in imaging tests). Performing Organization Address City/State/Zipcode Phone Number [facility] CLIA: [id number], [address] [place], [place] [address] XR CHEST 1 VW (08/28/2019 10:47 AM TICKETING CLERK) Specimen Impressions Performed At PACS/VR/DOSE No acute cardiopulmonary process. Preliminary Report Dictated by Resident: Rosmery Prado I reviewed this study and agree. IJoel MD., have reviewe d this study and agree with the above report. Narrative Performed At EXAM: XR CHEST 1 VW PACS/VR/DOSE COMPARISON: None. HISTORY: headache TECHNIQUE: Frontal view of the chest obt ained. FINDINGS: Lungs/pleura: The lungs are clear. No pleural effusi on or pneumothorax is identified. Heart/Mediastinum: The cardiac silhouett e is normal in size. No acute osseous abnormality. Procedure Note [facility], Radiant Results Inft User - 2019 11:19 AM TICKETING CLERK EXAM: XR CHEST 1 VW COMPARISON: None. HISTORY: headache TECHNIQUE: Frontal view of the chest obt ained. FINDINGS: Lungs/pleura: The lungs are clear. No p leural effusion or pneumothorax is identified. Heart/Mediastinum: The cardiac silhouett e is normal in size. No acute osseous abnormality. IMPRESSION No acute cardiopulmonary process. Preliminary Report Dictated by Resident: Rosmery Prado I reviewed this study and agree. Joel Barnes MD., have reviewe d this study and agree with the above report. Performing Organization Address City/State/Zipcode Phone Number PACS/VR/DOSE documented in this encounter Visit Diagnoses Diagnosis Acute intractable headache, unspecified headache type - Primary documented in this encounter Administered Medications Medication Order MAR Action Action Date Dose Rate Site diphenhydrAMINE (BENADRYL) Given 08/28/2019 11:59 AM TICKETING CLERK 25 mg injection 25 mg 25 mg, Slow IV Push, ONCE, 1 dose, Sat08/28/19 at 1245, STAT ketorolac (TORADOL) injection 30 mg Given 08/28/2019 11:57 AM TICKETING CLERK 30 mg 30 mg, Slow IV Push, ONCE, 1 dose, Sat08/28/19 at 1245, EDILMA, restaurant team member approving Restricted medication: Farhana LARES metoclopramide HCl (REGLAN) injection 10 mg Given 08/28/2019 12:00 PM TICKETING CLERK 10 mg 10 mg, Slow IV Push, ONCE, 1 dose, Sat08/28/19 at 1245, EDILMA NaCl 0.9% (NS) bolus infusion New Bag 08/28/2019 11:08 AM TICKETING CLERK 1,000 mL 999 mL/hr 1,000 mL at 999 mL/hr, 1,000 mL, IV Infusion, ONCE, 1 dose, Sat08/28/19 at 1145, STAT documented in this encounter Insurance Payer Benefit Plan Subscriber ID Effective Dates Phone Address Type / Group [facility] [id number] 2017-[facility]ay [phone] [address] [place] PPO/POS [place] - OUT OF t [id number] [place] [address] documented as of this encounter"
[2019-11-04] MEDS ORDERED: LIDOCAINE 1% MPF 5 ML VIAL ONE (12:27)
[2019-11-04] MEDS ORDERED: BUPIVACAINE 0.5% PF 10 ML VIAL ONE (12:27)
--- NOTE | 2019-11-04 12:33 | RAD REPORT ---
EXAM DESCRIPTION: RAD - Hand Right 3 View - 11/04/2019 12:27 pm CLINICAL HISTORY: PAIN COMPARISON: No comparisons FINDINGS: Soft tissue swelling is seen affecting the fifth finger. No fracture is visualized.
--- NOTE | 2019-11-04 13:25 | ER ---
Nurse's Notes [facility] Name: Mack Charles Age: 54 yrs Sex: Male : 1965 Arrival Date: 11/04/2019 Time: 11:44 Bed 17 Private MD: Diagnosis: Laceration without foreign body of right little finger without damage to nail Presentation: 11/03 12:08 Chief complaint: Patient states: smashed his right pinky with sledge hammer about an iw hour ago. Coronavirus screen: Proceed with normal triage. Patient denies a cough. Patient denies shortness of breath or difficulty breathing. Patient denies measured and/or subjective temperature greater than 100.4F prior to today's visit. Patient denies travel on a cruise ship or to a country the [facility] currently lists as an affected area. Patient denies contact with known and/or suspected case of COVID-19. Ebola Screen: Patient negative for fever greater than or equal to 101.5 degrees Fahrenheit, and additional compatible Ebola Virus Disease symptoms Patient denies exposure to infectious person. Patient denies travel to an Ebola-affected area in the 21 days before illness onset. No symptoms or risks identified at this time. Initial Sepsis Screen: Does the patient have a suspected source of infection? No. Patient's initial sepsis screen is negative. Initial Sepsis Screen: Does the patient meet any 2 criteria? No. Patient's initial sepsis screen is negative. Risk Assessment: Do you want to hurt yourself or someone else? Patient reports no desire to harm self or others. Onset of symptoms was November 04, 2019. 12:08 Method Of Arrival: Ambulatory iw 12:08 Acuity: [place] 4 iw Historical: - Allergies: 12:11 AYANNA INHIBITORS (Hives); iw 12:11 Bees (Anaphylaxis); iw 12:11 Trazodone (Hives); iw - PMHx: 12:11 acid reflux; Diabetes - IDDM; Hyperlipidemia; Hypertension; Hypothyroidism; iw - PSHx: 12:11 eye surgery; Hernia repair; left leg; right arm; iw - Immunization history:: Last tetanus immunization: unknown. - Social history:: Smoking status: . Screenin:18 Abuse screen: Denies threats or abuse. Denies injuries from another. Nutritional ca1 screening: No deficits noted. Tuberculosis screening: No symptoms or risk factors identified. Fall Risk None identified. Assessment: 12:18 General: Appears in no apparent distress. comfortable, Behavior is calm, cooperative, ca1 appropriate for age. Pain: Complains of pain in dorsal aspect of distal phalanx of right little finger and dorsal aspect of middle phalanx of right little finger Pain currently is 2 out of 10 on a pain scale. Neuro: Level of Consciousness is awake, alert, obeys commands, Oriented to person, place, time, situation. Derm: Skin is intact, is healthy with good turgor, Skin is pink, warm \T\ dry. Musculoskeletal: Circulation, motion, and sensation intact. Capillary refill < 3 seconds, Range of motion: limited in DIP of right little finger. Injury Description: Laceration sustained to palmar aspect of distal phalanx of right little finger is clean, superficial, 0.5 to 2.5 cm long, was sustained less than 30 minutes ago. no active bleeding noted at this time. 13:05 Reassessment: Patient appears in no apparent distress at this time. Patient is alert, ca1 oriented x 3, equal unlabored respirations, skin warm/dry/pink. Vital Signs: 12:08 BP 100 / 73; Pulse 71; Resp 16; Temp 98.2; Pulse Ox 99% on R/A; Weight 77.11 kg; Height iw 5 ft. 11 in. (180.34 cm); Pain 2/10; 13:05 BP 99 / 68; Pulse 69; Resp 17 S; Pulse Ox 100% on R/A; ca1 12:08 Body Mass Index 23.71 (77.11 kg, 180.34 cm) iw ED Course: 11:44 Patient arrived in ED. as 11:52 Joan Sheehan FNP-C is PHCP. kb 11:52 Luis Alberto Mcclure MD is Attending Physician. kb 12:04 Sindy Wood RN is Primary Nurse. ca1 12:10 Triage completed. iw 12:16 Arm band placed on right wrist. ca1 12:18 Patient has correct armband on for positive identification. Bed in low position. Call ca1 light in reach. Side rails up X 1. Pulse ox on. NIBP on. 12:18 Patient did not have IV access during this emergency room visit. ca1 12:28 Hand Right 3 View XRAY In Process Unspecified. EDMS 13:21 Assist provider with laceration repair on palmar aspect of distal phalanx of right ca1 little finger that was 2.5 cm. or less using sutures. Set up tray. Performed by Joan CAN Dressed with band aid, Patient tolerated well. Administered Medications: 13:03 Drug: Lidocaine (1 %) 1 vials {Note: by ROSALIE Franco.} Volume: 5 ml; Route: Infiltration;ca1 13:04 Drug: Bupivacaine (0.5 %) 1 vials {Note: by ROSALIE Franco.} Volume: 10 ml; Route: ca1 Infiltration; Outcome: 13:24 Discharge ordered by . kip 13:30 Discharged to home ambulatory. iw 13:30 Condition: good 13:30 Discharge instructions given to patient, Instructed on discharge instructions, follow up and referral plans. wound care, Demonstrated understanding of instructions, follow-up care, wound care. 13:31 Patient left the ED. ca1 Signatures: Dispatcher [employer] EDAZ Joan Sheehan FNP-C FNP-Blanka Faye as Marylu Preston, JENNIFER RN iw Sindy Wood RN RN ca1 Corrections: (The following items were deleted from the chart) 13:31 12:18 No provider procedures requiring assistance completed. ca1 ca1
--- NOTE | 2019-11-04 13:25 | EDPHYS ---
Physician Documentation [facility] Name: Mack Charles Age: 54 yrs Sex: Male : 1965 Arrival Date: 11/04/2019 Time: 11:44 Bed 17 Private MD: ED Physician Luis Alberto Mcclure HPI: 11/03 13:23 This 54 yrs old Male presents to ER via Ambulatory with complaints of Hand kb Injury. 13:23 The patient or guardian reports injury, a laceration, irregular. The complaints affect kb the palmar aspect of middle phalanx of right little finger and dorsal aspect of middle phalanx of right little finger. Context: The problem was sustained at home, outdoors, resulted from got it caught between osmel and hammer. Onset: The symptoms/episode began/occurred just prior to arrival. Modifying factors: The symptoms are alleviated by nothing, the symptoms are aggravated by nothing. Associated signs and symptoms: The patient has no apparent associated signs or symptoms. Severity of symptoms: At their worst the symptoms were mild, in the emergency department the symptoms are unchanged. The patient has not experienced similar symptoms in the past. The patient has not recently seen a physician. Historical: - Allergies: 12:11 AYANNA INHIBITORS (Hives); iw 12:11 Bees (Anaphylaxis); iw 12:11 Trazodone (Hives); iw - PMHx: 12:11 acid reflux; Diabetes - IDDM; Hyperlipidemia; Hypertension; Hypothyroidism; iw - PSHx: 12:11 eye surgery; Hernia repair; left leg; right arm; iw - Immunization history:: Last tetanus immunization: unknown. - Social history:: Smoking status: . ROS: 12:28 Constitutional: Negative for fever, chills, and weight loss, Cardiovascular: Negative kb for chest pain, palpitations, and edema, Respiratory: Negative for shortness of breath, cough, wheezing, and pleuritic chest pain, Abdomen/GI: Negative for abdominal pain, nausea, vomiting, diarrhea, and constipation, Back: Negative for injury and pain, Neuro: Negative for headache, weakness, numbness, tingling, and seizure. 12:28 Skin: Positive for laceration(s), of the dorsal aspect of middle phalanx of right little finger and palmar aspect of middle phalanx of right little finger. Exam: 12:28 Constitutional: This is a well developed, well nourished patient who is awake, alert, kb and in no acute distress. Head/Face: Normocephalic, atraumatic. Chest/axilla: Normal chest wall appearance and motion. Nontender with no deformity. No lesions are appreciated. Cardiovascular: Regular rate and rhythm with a normal S1 and S2. No gallops, murmurs, or rubs. Normal PMI, no JVD. No pulse deficits. Respiratory: Lungs have equal breath sounds bilaterally, clear to auscultation and percussion. No rales, rhonchi or wheezes noted. No increased work of breathing, no retractions or nasal flaring. Abdomen/GI: Soft, non-tender, with normal bowel sounds. No distension or tympany. No guarding or rebound. No evidence of tenderness throughout. MS/ Extremity: Pulses equal, no cyanosis. Neurovascular intact. Full, normal range of motion. Neuro: Awake and alert, GCS 15, oriented to person, place, time, and situation. Cranial nerves II-XII grossly intact. Motor strength 5/5 in all extremities. Sensory grossly intact. Cerebellar exam normal. Normal gait. 12:28 Skin: injury, laceration(s), the wound is approximately 1 cm(s), of the palmar aspect of middle phalanx of right little finger and dorsal aspect of middle phalanx of right little finger, that can be described as clean, no foreign body, irregular, without bleeding. Vital Signs: 12:08 BP 100 / 73; Pulse 71; Resp 16; Temp 98.2; Pulse Ox 99% on R/A; Weight 77.11 kg; Height iw 5 ft. 11 in. (180.34 cm); Pain 2/10; 13:05 BP 99 / 68; Pulse 69; Resp 17 S; Pulse Ox 100% on R/A; ca1 12:08 Body Mass Index 23.71 (77.11 kg, 180.34 cm) iw Procedures: 13:21 Nerve block: (digital) of palmar aspect of proximal phalanx of right little finger kb Medication: Lidocaine 1% without epinephrine Marcaine 0.5%, Amount: 4 mls were injected, Effect: the patient has resolution of the pain, Set up for procedure. Performed by Joan CAN Patient tolerated well. Laceration: 13:21 Wound Repair of 1cm ( 0.4in ) subcutaneous laceration to palmar aspect of middle kb phalanx of right little finger and dorsal aspect of middle phalanx of right little finger. Irregularly shaped.. Distal neuro/vascular/tendon intact. Anesthesia: Digital block administered with 1% lidocaine. Wound prep: Extensive cleansing with hibiclenz by me, Wound irrigation with saline by me. Skin closed with 3 5-0 Prolene using simple sutures and sterile technique. Patient tolerated well. MDM: 12:04 Patient medically screened. kb 12:29 Data reviewed: vital signs, nurses notes. Data interpreted: Pulse oximetry: on room air kb is 99 %. Interpretation: normal. 13:21 Counseling: I had a detailed discussion with the patient and/or guardian regarding: the kb historical points, exam findings, and any diagnostic results supporting the discharge/admit diagnosis, radiology results, the need for outpatient follow up, a family practitioner, to return to the emergency department if symptoms worsen or persist or if there are any questions or concerns that arise at home. 11/03 12:09 Order name: Hand Right 3 View XRAY; Complete Time: 12:35 kb 11/03 12:18 Order name: Prolene, Sutures; Complete Time: 13:28 kb 11/03 12:18 Order name: Dressing - Wound; Complete Time: 13:28 kb 11/03 12:18 Order name: Gloves, Sterile; Complete Time: 12:22 kb 11/03 12:19 Order name: Setup Suture Tray; Complete Time: 12:22 kb Administered Medications: 13:03 Drug: Lidocaine (1 %) 1 vials {Note: by ROSALIE Franco.} Volume: 5 ml; Route: Infiltration;ca1 13:04 Drug: Bupivacaine (0.5 %) 1 vials {Note: by Joan ABSTRACT CLERK.} Volume: 10 ml; Route: ca1 Infiltration; Disposition: 14:46 Co-signature as Attending Physician, Luis Alberto Mcclure MD I agree with the assessment and kdr plan of care. Disposition: 11/04/19 13:24 Discharged to Home. Impression: Laceration without foreign body of right little finger without damage to nail. - Condition is Stable. - Discharge Instructions: Laceration Care, Adult, [id number]. - Medication Reconciliation Form, Thank You Letter, Antibiotic Education, Prescription Opioid Use form. - Follow up: Emergency Department; When: As needed; Reason: Worsening of condition. Follow up: Private Physician; When: 2 - 3 days; Reason: Recheck today's complaints, Continuance of care, Re-evaluation by your physician. Signatures: Dispatcher [employer] EDMS AguilaJumaJoan, MAYELA-C BUSINESS ATTORNEY-Luis Alberto Tidwell MD MD kdr Marylu Preston RN RN iw Sindy Wood RN RN ca1 Corrections: (The following items were deleted from the chart) 13:31 13:24 11/04/2019 13:24 Discharged to Home. Impression: Laceration without foreign body ca1 of right little finger without damage to nail. Condition is Stable. Forms are Medication Reconciliation Form, Thank You Letter, Antibiotic Education, Prescription Opioid Use. Follow up: Emergency Department; When: As needed; Reason: Worsening of condition. Follow up: Private Physician; When: 2 - 3 days; Reason: Recheck today's complaints, Continuance of care, Re-evaluation by your physician. kb
[2019-11-04 13:38] VITALS: TEMP 98.2
[2019-11-04 13:39] VITALS: BP 99/68; O2SAT 100
== END 2019-11-04 13:31 | disposition home or self-care (01) ==
LOC: ER 11:44
PROC: 0JQJ0ZZ Repair Right Hand Subcutaneous Tissue and Fascia, Open Approach (ICD-10-PCS; principal; 2019-11-04)
DX: S61.216A Laceration without foreign body of right little finger without damage to nail, initial encounter (principal); W45.8XXA Other foreign body or object entering through skin, initial encounter; Y93.9 Activity, unspecified; Y92.009 Unspecified place in unspecified non-institutional (private) residence as the place of occurrence of the external cause; I10 Essential (primary) hypertension; Z88.5 Allergy status to narcotic agent; Z88.8 Allergy status to other drugs, medicaments and biological substances; Z91.030 Bee allergy status
CPT/HCPCS: 64450; 99284

== ENCOUNTER 2019-11-11 13:58 | Emergency (ER) | payer BC ==
--- OUTSIDE RECORDS SUMMARY | 2019-11-11 14:01 | XMS REPORT ---
:1965 Author Organization [facility] t Address [address] [place] [address] Dr. Chambers [address] [place] [id number] Care Team Providers Name Role Phone Unavailable Unavailable Unavailable Problems This patient has no known problems. Allergies, Adverse Reactions, Alerts This patient has no known allergies or adverse reactions. Medications This patient has no known medications.
--- NOTE | 2019-11-11 14:11 | ER ---
Nurse's Notes [facility] Name: Mack Charles Age: 54 yrs Sex: Male : 1965 Arrival Date: 11/11/2019 Time: 14:01 Bed 15 Private MD: Diagnosis: Encounter for removal of sutures Presentation: 11/10 14:12 Chief complaint: Patient states: Right hand 5th digit stitches removal. No pain. ll1 Coronavirus screen: Proceed with normal triage. Patient denies a cough. Patient denies shortness of breath or difficulty breathing. Patient denies measured and/or subjective temperature greater than 100.4F prior to today's visit. Patient denies travel on a cruise ship or to a country the [facility] currently lists as an affected area. Patient denies contact with known and/or suspected case of COVID-19. Ebola Screen: Patient denies travel to an Ebola-affected area in the 21 days before illness onset. Initial Sepsis Screen: Does the patient meet any 2 criteria? No. Patient's initial sepsis screen is negative. Does the patient have a suspected source of infection? No. Patient's initial sepsis screen is negative. Risk Assessment: Do you want to hurt yourself or someone else? Patient reports no desire to harm self or others. Onset of symptoms is unknown. 14:12 Method Of Arrival: Ambulatory 1 14:12 Acuity: [place] 5 ll1 Triage Assessment: 14:10 General: Appears in no apparent distress. comfortable, Behavior is calm, cooperative, vc appropriate for age. Pain: Denies pain. Historical: - Allergies: 14:14 AYANNA INHIBITORS (Hives); ll1 14:14 Trazodone (Hives); ll1 14:14 Bees (Anaphylaxis); ll1 - PMHx: 14:14 Hypothyroidism; Hyperlipidemia; Hypertension; Diabetes - IDDM; acid reflux; ll1 - PSHx: 14:14 left leg; eye surgery; Hernia repair; ll1 - Immunization history:: Adult Immunizations up to date. - Social history:: Smoking status: Patient denies any tobacco usage or history of. Patient uses alcohol, only on a social basis. Patient/guardian denies using street drugs. Screenin:14 Abuse screen: Denies threats or abuse. Nutritional screening: No deficits noted. ll1 Tuberculosis screening: No symptoms or risk factors identified. Fall Risk None identified. Total Connors Fall Scale indicates No Risk (0-24 pts). Assessment: 14:15 General: Appears in no apparent distress. comfortable, Behavior is calm, cooperative, vc appropriate for age. Neuro: Level of Consciousness is awake, alert, obeys commands, Oriented to person, place, time, situation, Appropriate for age. GI: No signs and/or symptoms were reported involving the gastrointestinal system. : No signs and/or symptoms were reported regarding the genitourinary system. Derm: sutures to right 5th digit. Musculoskeletal: Circulation, motion, and sensation intact. Range of motion: intact in all extremities. Vital Signs: 14:12 BP 103 / 72; Pulse 84; Resp 17; Temp 98.4; Pulse Ox 100% ; Pain 0/10; ll1 ED Course: 14:01 Patient arrived in ED. mr 14:02 Joan Sheehan FNP-C is [facility]. kb 14:02 Luis Alberto Mcclure MD is Attending Physician. kb 14:05 Removal of Removed sutures from palmar aspect of distal phalanx of right little finger vc Suture site is well healed Patient tolerated well. 14:07 Patient has correct armband on for positive identification. Bed in low position. Verbal jp3 reassurance given. Cardiac monitoring not applicable on this patient. 14:10 Arm band placed on. vc 14:13 Triage completed. ll1 14:15 No provider procedures requiring assistance completed. Patient did not have IV access vc during this emergency room visit. 14:16 Suad Sanders, RN is Primary Nurse. vc Administered Medications: No medications were administered Outcome: 14:11 Discharge ordered by . kb 14:15 Discharged to home ambulatory. vc 14:15 Condition: good 14:15 Discharge instructions given to patient, Instructed on discharge instructions, follow up and referral plans. Demonstrated understanding of instructions, follow-up care. 14:17 Patient left the ED. vc Signatures: Joan Sheehan FNP-C FNP-Ckb Alyson Green Jacob jp3 Suad Sanders, JENNIFER RN vc Rosa Arora RN RN ll1
--- NOTE | 2019-11-11 14:11 | EDPHYS ---
Physician Documentation [facility] Name: Mack Charles Age: 54 yrs Sex: Male : 1965 Arrival Date: 11/11/2019 Time: 14:01 Bed 15 Private MD: ED Physician Luis Alberto Mcclure HPI: 11/10 14:13 This 54 yrs old Male presents to ER via Unassigned with complaints of Suture kb Removal. 14:13 The patient has sutures on the palmar aspect of distal phalanx of right little finger. kb Previous treatment: The patient was initially treated 7 day(s) ago, the care was rendered at [facility], Treatment type: The patient's original treatment included sutures, Outpatient prescription(s): The patient was given prescription(s) for nothing. Sutures/polina progress: The patient has no c/o's. The wound is well-healing with no redness, swelling, discharge, or dehiscence reported. The patient has not experienced similar symptoms in the past. The patient has been recently seen at the [facility] Emergency Department. Historical: - Allergies: 14:14 AYANNA INHIBITORS (Hives); ll1 14:14 Trazodone (Hives); ll1 14:14 Bees (Anaphylaxis); ll1 - PMHx: 14:14 Hypothyroidism; Hyperlipidemia; Hypertension; Diabetes - IDDM; acid reflux; ll1 - PSHx: 14:14 left leg; eye surgery; Hernia repair; ll1 - Immunization history:: Adult Immunizations up to date. - Social history:: Smoking status: Patient denies any tobacco usage or history of. Patient uses alcohol, only on a social basis. Patient/guardian denies using street drugs. ROS: 14:11 Constitutional: Negative for fever, chills, and weight loss, Cardiovascular: Negative kb for chest pain, palpitations, and edema, Respiratory: Negative for shortness of breath, cough, wheezing, and pleuritic chest pain, Abdomen/GI: Negative for abdominal pain, nausea, vomiting, diarrhea, and constipation, Back: Negative for injury and pain, MS/Extremity: Negative for injury and deformity, Neuro: Negative for headache, weakness, numbness, tingling, and seizure. 14:11 Skin: Positive for laceration(s), of the palmar aspect of distal phalanx of right little finger, sutures in place. Exam: 14:11 Constitutional: This is a well developed, well nourished patient who is awake, alert, kb and in no acute distress. Head/Face: Normocephalic, atraumatic. Chest/axilla: Normal chest wall appearance and motion. Nontender with no deformity. No lesions are appreciated. Cardiovascular: Regular rate and rhythm with a normal S1 and S2. No gallops, murmurs, or rubs. Normal PMI, no JVD. No pulse deficits. Respiratory: Lungs have equal breath sounds bilaterally, clear to auscultation and percussion. No rales, rhonchi or wheezes noted. No increased work of breathing, no retractions or nasal flaring. Abdomen/GI: Soft, non-tender, with normal bowel sounds. No distension or tympany. No guarding or rebound. No evidence of tenderness throughout. MS/ Extremity: Pulses equal, no cyanosis. Neurovascular intact. Full, normal range of motion. Neuro: Awake and alert, GCS 15, oriented to person, place, time, and situation. Cranial nerves II-XII grossly intact. Motor strength 5/5 in all extremities. Sensory grossly intact. Cerebellar exam normal. Normal gait. 14:11 Skin: Wound recheck: Suture laceration closure: the wound is healing well, the edges are well approximated, no evidence of dehiscence, no drainage, no erythema, no swelling. Vital Signs: 14:12 BP 103 / 72; Pulse 84; Resp 17; Temp 98.4; Pulse Ox 100% ; Pain 0/10; ll1 Procedures: 14:11 Suture/Staple removal: Removed 3 sutures, from palmar aspect of distal phalanx of right kb little finger, site appears well healed, dressed with steristrip. Patient tolerated. MDM: 14:02 Patient medically screened. kb 14:11 Data reviewed: vital signs, nurses notes. Data interpreted: Pulse oximetry: on room air kb is 100 %. Interpretation: normal. Counseling: I had a detailed discussion with the patient and/or guardian regarding: the historical points, exam findings, and any diagnostic results supporting the discharge/admit diagnosis, the need for outpatient follow up, a family practitioner, to return to the emergency department if symptoms worsen or persist or if there are any questions or concerns that arise at home. Administered Medications: No medications were administered Disposition: 17:28 Co-signature as Attending Physician, Luis Alberto Mcclure MD I agree with the assessment and kdr plan of care. Disposition: 11/11/19 14:11 Discharged to Home. Impression: Encounter for removal of sutures. - Condition is Stable. - Discharge Instructions: Suture Removal, Care After. - Medication Reconciliation Form, Thank You Letter, Antibiotic Education, Prescription Opioid Use form. - Follow up: Emergency Department; When: As needed; Reason: Worsening of condition. Follow up: Private Physician; When: 2 - 3 days; Reason: Recheck today's complaints, Continuance of care, Re-evaluation by your physician. Signatures: Joan Sheehan, CYLINDER BLOCK HOLE RELINER-C CYLINDER BLOCK HOLE RELINER-Luis Alberto Tidwell MD MD [facility] Suad Sanders RN RN vc Rosa Arora RN RN ll1 Corrections: (The following items were deleted from the chart) 14:17 14:11 11/11/2019 14:11 Discharged to Home. Impression: Encounter for removal of vc sutures. Condition is Stable. Forms are Medication Reconciliation Form, Thank You Letter, Antibiotic Education, Prescription Opioid Use. Follow up: Emergency Department; When: As needed; Reason: Worsening of condition. Follow up: Private Physician; When: 2 - 3 days; Reason: Recheck today's complaints, Continuance of care, Re-evaluation by your physician. kb
[2019-11-11 14:28] VITALS: BP 103/72; TEMP 98.4; O2SAT 100
== END 2019-11-11 14:17 | disposition home or self-care (01) ==
LOC: ER 13:58
DX: Z48.02 Encounter for removal of sutures (principal); Z88.8 Allergy status to other drugs, medicaments and biological substances; Z91.030 Bee allergy status
CPT/HCPCS: 99281

== ENCOUNTER 2020-06-04 11:50 | Emergency (ER) | payer BC ==
--- OUTSIDE RECORDS SUMMARY | 2020-06-04 11:53 | XMS REPORT | Clinical Summary ---
:1965 Author Organization [facility] Address [address] [place] [address] Care Team Providers Name Role Phone Mars Abreu Primary Care Provider Allergies Active Allergy Reactions Severity Noted Date Comments Александр Inhibitors Hives 03/26/2016 Trazodone Hives 03/26/2016 Medications Medication Sig Dispensed Refills Start Date End Date Status bisoprolol-hydrochlorothi Take 1 tablet 0 Active azide (ZIAC) 5-6.25 mg by mouth daily. per tablet losartan (COZAAR) 100 MG Take 100 mg by 0 Active tablet mouth daily. fexofenadine (RAN) Take 180 mg by 0 Active 180 MG tablet mouth daily. esomeprazole (NEXIUM) 40 Take 40 mg by 0 Active MG capsule mouth daily. ascorbic acid (VITAMIN C) Take 1,000 mg 0 Active 1000 MG tablet by mouth daily. FOLIC Take by mouth. 0 Activ e ACID/MULTIVIT-MIN/LUTEIN (CENTRUM SILVER ORAL) lutein 20 mg Cap Take by mouth. 0 Active niacin 500 MG tablet Take 500 mg by 0 Active mouth daily. fenofibrate (TRICOR) 145 Take 145 mg by 0 Active MG tablet mouth daily. cyclobenzaprine Take 5 mg by 0 A ctive (FLEXERIL) 5 MG tablet mouth 3 (three) times daily as needed for Muscle spasms. rivaroxaban (XARELTO) 15 Take by mouth. 0 Active mg Tab tablet Active Problems Not on file Social History Tobacco Use Types Packs/Day Years Used Date Former Smoker 0.5 13 Quit: 04/25/20 13 Smokeless Tobacco: Current User Comments: dips 2/3 can per day Alcohol Use Drinks/Week oz/Week Comments Yes 10 Cans of beer 10.0 Sex Assigned at Date Recorded Not on file Last Filed Vital Signs Not on file Plan of Treatment Not on file Results Not on fileafter 06/04/2019 Insurance Payer Benefit Plan / Subscriber ID Effective Dates Phone Addre ss Type Group AETNA - MGD AETNA HMO POS [id number] 2015-Present HMO/POS CARE QPOS
--- OUTSIDE RECORDS SUMMARY | 2020-06-04 11:53 | XMS REPORT | Clinical Summary ---
:1965 Author Organization [facility] Address [address] [place] [address] Care Team Providers Name Role Phone Silvia Kincaid MD Primary Care Provider Allergies Active Allergy Reactions Severity Noted Date Comments Александр Inhibitors Hives 04/05/2016 Amlodipine Hives 01/22/2020 Trazodone Hives 04/05/2016 Hymenoptera Allergenic Anaphylaxis, Shortness Of High 04/05 Extract Breath Medications Medication Sig Dispensed Refills [...] times without complication, a day. for unspecified mcfp testing insulin use status aspirin (ECOTRIN) 81 MG Take 81 mg by 0 Active enteric coated tablet mouth daily. blood sugar diagnostic One touch 200 strip 1 09/11/19 Active strips (glucose blood) Verio test 18 strip test blood sugar stripsIndications: twice a day Diabetes mellitus without complication (HCC) tacrolimus (PROTOPIC) Apply 0 Active 0.1 % ointment topically 2 (two) times a day. atorvastatin (LIPITOR) Take 1 tablet 30 tablet 0 02/24/20 Active 10 mg tablet (10 mg total) 20 by mouth daily. losartan (COZAAR) 100 Take 1 tablet 30 tablet 0 20 Active MG tabletIndications: (100 mg total) 20 Type 2 diabetes by mouth mellitus without daily. complication (HCC) hydroCHLOROthiazide Take 1 tablet 30 tablet 2 03/28/2003/28/ Active (HYDRODIURIL) 12.5 MG (12.5 mg 2020 tablet total) by mouth daily. levothyroxine Take 1 tablet 90 tablet 1 04/17/20 Ac tive (SYNTHROID) 50 mcg (50 mcg total) 20 tabletIndications: by mouth every Other specified morning. hypothyroidism omega-3 acid ethyl TAKE 1 CAPSULE 180 capsule 1 04/17/20 Active esters (LOVAZA) 1 gram TWICE A DAY capsuleIndications: Hypertriglyceridemia esomeprazole (NexIUM) TAKE 1 CAPSULE 90 capsule 3 04/17/20 Active 40 MG DAILY BEFORE capsuleIndications: BREAKFAST Gastroesophageal reflux disease atorvastatin (LIPITOR) TAKE 1 TABLET 90 tablet 1 10/28/19 05/ 04/ Discontinued 10 MG tablet DAILY 2019 losartan (COZAAR) 100 TAKE 1 TABLET 90 tablet 1 04/12/20 05/0 4/ Discontinued MG tabletIndications: DAILY 2019 Type 2 diabetes mellitus without complication (HCC) esomeprazole (NexIUM) TAKE 1 CAPSULE 90 capsule 3 04/11/20 08 12/ Discontinued 40 MG DAILY BEFORE 2019 (Reorde r) capsuleIndications: BREAKFAST Gastroesophageal reflux disease, esophagitis presence not specified omega-3 acid ethyl TAKE 1 CAPSULE 180 capsule 1 04/12/20 02/1 0/ Discontinued esters (LOVAZA) 1 gram TWICE A DAY 2019 capsuleIndications: Hypertriglyceridemia levothyroxine TAKE 1 TABLET 90 tablet 1 04/12/20/10/ Di scontinued (SYNTHROID, LEVOXYL) 50 EVERY MORNING 20 mcg tabletIndications: Other specified hypothyroidism omega-3 acid ethyl TAKE 1 CAPSULE 180 capsule 0 08/24/19 05/0 4/ Discontinued esters (LOVAZA) 1 gram TWICE A DAY 2019 capsuleIndications: Hypertriglyceridemia levothyroxine TAKE 1 TABLET 90 tablet 0 08/24/19 05/04/ Di scontinued (SYNTHROID) 50 mcg EVERY MORNING 2019 tabletIndications: Other specified hypothyroidism clindamycin (Cleocin Take 1 capsule 40 capsule 0 09/07/19 03/ 05/ HCL) 300 MG capsule (300 mg total) 2019 by mouth 4 (four) times a day for 10 days. chlorhexidine Apply 236 mL 0 09/07/1910/06/ d (HIBICLENS) 4 % topically 2019 external liquid daily as needed for wound care for up to 30 days. chlorthalidone Take 1 tablet 30 tablet 0 09/10/1910/04/ D iscontinued (HYGROTEN) 25 MG tablet (25 mg total) (Reorder) by mouth daily. chlorthalidone Take 1 tablet 30 tablet 3 10/05/19 D iscontinued (HYGROTEN) 25 MG tablet (25 mg total) (Therapy by mouth completed) daily. levothyroxine TAKE 1 TABLET 90 tablet 0 11/16/1902/23/ Di scontinued (SYNTHROID) 50 mcg EVERY MORNING 2019 (Reorder) tabletIndications: Other specified hypothyroidism omega-3 acid ethyl TAKE 1 CAPSULE 180 capsule 0 11/16/1902/12 2/ Discontinued esters (LOVAZA) 1 gram TWICE A DAY 2019 (Reorder) capsuleIndications: Hypertriglyceridemia losartan (COZAAR) 100 TAKE 1 TABLET 90 tablet 0 11/16/19 07 3/ Discontinued MG tabletIndications: DAILY 2019 Type 2 diabetes mellitus without complication (HCC) atorvastatin (LIPITOR) TAKE 1 TABLET 90 tablet 0 11/16/19/ Discontinued 10 MG tablet DAILY 2019 (Tamy r) nystatin-triamcinolone Apply 30 g 0 11/27/1901/05/ Discontinued (MYCOLOG) 100,000-0.1 topically 2 2019 (Therapy unit/gram-% ointment (two) times a completed) day. miconazole (Zeasorb AF) Apply 71 g 1 11/27/1912/26/ 2 % powder topically as 2019 needed for itching for up to 30 days. amLODIPine (NORVASC) 5 Take 1 tablet 90 tablet 0 01/06/20/ Discontinued mg tablet (5 mg total) 2019 by mouth daily. predniSONE (DELTASONE) Take 1 tablet 20 tablet 0 01/22/20/ 20 mg 3 times daily 2019 tabletIndications: Drug for 3 days induced allergic then 1 tablet contact dermatitis twice daily for 3 days then 1 tablet once daily for 3 days clobetasoL (TEMOVATE) Apply 60 g 0 01/22/2001/31/ 0.05 % topically 2 2019 creamIndications: Drug (two) times a induced allergic day for 10 contact dermatitis days. Apply to affected areas below the face twice daily for 10 days losartan (COZAAR) 100 TAKE 1 TABLET 90 tablet 1 02/04/20 08 2/ Discontinued MG tabletIndications: DAILY 2019 (Reorder) Type 2 diabetes mellitus without complication (HCC) esomeprazole (NexIUM) TAKE 1 CAPSULE 30 capsule 0 02/24/20/ Discontinued 40 MG DAILY BEFORE 2019 capsuleIndications: BREAKFAST Gastroesophageal reflux disease, esophagitis presence not specified levothyroxine Take 1 tablet 30 tablet 0 02/24/2004/17/ Di scontinued (SYNTHROID) 50 mcg (50 mcg total) 2019 tabletIndications: by mouth every Other specified morning. hypothyroidism omega-3 acid ethyl Take 1 capsule 60 capsule 0 02/24/2004/17 / Discontinued esters (LOVAZA) 1 gram (1 g total) by capsuleIndications: mouth 2 (two) Hypertriglyceridemia times a day. Active Problems Problem Noted Date Stage 3a chronic kidney disease 05/30/2020 Gastroesophageal reflux disease 05/30/2020 Disease of thyroid gland 02/17/2018 Chronic back pain 08/03/2016 Hyperlipidemia 04/05/2016 Essential hypertension 04/05/2016 Encounters Date Type Specialty Care Team Description 05/30/2020 Telemedicine Family Medicine [place], Stage 3a chr onic kidney disease (Primary Dx); Silvia Villeda MD Essential hyper tension; Gastroesophagea l reflux disease, unspecified whether esophagitis present 05/26/2020 Telephone Family Medicine Silvia Kincaid MD 05/26/2020 Orders Only Family Medicine ProviderLiya MD 05/26/2020 Telephone Family Medicine [place], Essential hy pertension LINDA Yang (Primary Dx) 04/17/2020 Refill Gastroenterology Aydee Harper ageal reflux Boo Baugh MD disease 04/17/2020 Refill Family Medicine [place], Other specif ied hypothyroidism; Silvia Villeda MD Hypertriglyceri demia 03/28/2020 Office Visit Family Medicine [place], Essential hy pertension (Primary Dx); Silvia Villeda MD Mixed hyperlipi demia; Gastroesophagea l reflux disease, esophagitis presence not specified; Subclinical iod ine-deficiency hypothyroidism 03/28/2020 Travel 03/02/2020 Telemedicine Gastroenterology [place] Gastroesoph ageal reflux Boo Baugh MD disease, esopha gitis presence not sp ecified (Primary Dx) 02/24/2020 Telephone Internal Medicine [place], Gastroesop hageal reflux disease, esophagitis presence not specified; Silvia Villeda MD Other specified hypothyroidism; Hypertriglyceri demia; Type 2 diabetes mellitus without complication (HCC) 02/08/2020 Travel 02/04/2020 Refill Family Medicine [place], Type 2 diabe filipe mellitus Silvia Villeda MD without complic ation (HCC) 02/04/2020 Orders Only Internal Medicine ProviderLiya MD 02/01/2020 Travel 01/29/2020 Transcribe Orders Radiology Ray Sanford Liver dise ase (Primary Dx) MD Calvin 01/22/2020 Telemedicine Family Medicine [place], Drug induced allergic Silvia Villeda MD contact dermati tis (Primary Dx) 01/20/2020 Travel 01/15/2020 Orders Only Family Medicine Silvia Kincaid MD 01/06/2020 Office Visit Family Medicine [place], Anemia, unsp ecified type (Primary Dx); Silvia Villeda MD Annual physical exam 01/06/2020 Travel 11/27/2019 Telemedicine Family Medicine [place], Essential hy pertension (Primary Dx); Silvia Villeda MD Tinea lennys 11/25/2019 Telephone Family Medicine Silvia Kincaid MD 11/25/2019 Travel 11/16/2019 Orders Only Family Medicine [place], Subclinical iodine-deficiency hypothyroidism (Primary Dx); Silvia Villeda MD Essential hyper tension; Mixed hyperlipi demia; Prostate cancer screening; Hyperglycemia 11/14/2019 Refill Family Medicine [place], Other specif ied hypothyroidism; Silvia Villeda MD Hypertriglyceri demia; Type 2 diabetes mellitus without complication (HCC) 10/02/2019 Travel 09/10/2019 Office Visit Family Medicine [place], Cellulitis o f face (Primary Dx); Silvia Villeda MD Essential hyper tension 09/07/2019 Office Visit Family Medicine [place], Cellulitis, face (Primary Dx); Silvia Villeda MD Immunization du e 08/22/2019 Refill Family Medicine [place], Hypertriglyc eridemia; Silvia Villeda MD Other specified hypothyroidism after 06/04/2019 Immunizations Name Administration Dates Next Due FLUBLOK QUAD PF 05/09/2018 FLUZONE QUAD PF 04/05/2016 Influenza Trivalent 05/07/2019 Pneumococcal Conjugate 13-Valent 08/03/2016 Tdap 09/07/2019 Surgical History Surgery Date Site/Laterality Comments EYE SURGERY 07/15/1969 - defect 07/14/1970 HERNIA REPAIR 07/15/1977 - 07/14/1978 ORTHOPEDIC SURGERY 08/15/2011 - Broken left l eg 09/12/2011 VASECTOMY 07/15/1990 - 07/14/1991 COLONOSCOPY 07/15/2015 - '01 07/14/2016 elsewhere--polyp s; 06/2016--neg due 2025 UPPER GASTROINTESTINAL 06/14/2016 - sm bowel bx NPD ENDOSCOPY 07/14/2016 Medical History Medical History Date Comments Allergic 1997 Hypertension 1994 Hyperlipidemia 04/05/2016 Non morbid obesity due to excess 04/05/2016 calories Sleep apnea Disease of thyroid gland GERD (gastroesophageal reflux disease) 1999 had EGD done with Dr. Harper-GERD Diabetes mellitus (HCC) 03/2016 diet controlled Stage 3a chronic kidney disease 05/30/2020 Social History Tobacco Use Types Packs/Day Years Used Date Former Smoker Cigarettes 0.5 29 1983 - 1 Smokeless Tobacco: Never Used Tobacco Cessation: Counseling Given: Yes Alcohol Use Drinks/Week oz/Week Comments Yes 0 Glasses of wine 2.0 Reduced alcohol use due to 0 Cans of beer diabetes diagnosis 0 Shots of liquor 2 Standard drinks or equivalent Sex Assigned at Date Recorded Not on file Last Filed Vital Signs Vital Sign Reading Time Taken Comments Blood Pressure 140/80 03/28/2020 9:05 AM CDT Pulse 59 03/28/2020 8:47 AM CDT Temperature 37 C (98.6 F) 03/28/2020 8:47 AM CDT Respiratory Rate 18 01/06/2020 11:09 AM CDT Oxygen Saturation 100% 03/28/2020 8:47 AM CDT Inhaled Oxygen Concentration - - Weight 85.7 kg (189 lb) 03/28/2020 8:47 AM CDT Height 180.3 cm (5' 11") 03/28/2020 8:47 AM CDT Body Mass Index 26.36 03/28/2020 8:47 AM CDT Plan of Treatment Date Type Specialty Care Team Description 06/20/2020 Office Visit Family Medicine Silvia Kincaid MD [address] [facility] [address] [place] [id number] Health Maintenance Due Date Last Done Comments SHINGLES VACCINES (#2) 06/03/2020 04/03/2020 DIABETES: RETINAL EYE EXAM 07/23/2020 07/23/2018, 7, 08/22/2016 DIABETIC FOOT EXAM 01/05/2021 01/06/2020, 01/06/2020, 01/05, Additional history exists COLONOSCOPY SCREENING 06/20/2026 06/20/2016 INFLUENZA VACCINE Completed 04/06/2020, 05/07/2019, 2018, Additional history exists Procedures Procedure Name Priority Date/Time Associated Diagnosis Comme nts CBC WITH PLATELET AND Routine 05/30/2020 11:54 Essential hypertension Results for this DIFFERENTIAL AM [facility] Mixed hyperlipidemia procedu re are in the results section. HEMOGLOBIN A1C Routine 05/30/2020 11:52 Diabetes mellitus Resu lts for this AM [facility] without complication procedu re are in (HCC) the results section. URINALYSIS, COMPLETE, Routine 05/30/2020 11:51 Essential hyper tension Results for this WITH REFLEX TO AM [facility] procedure are in CULTURE the results section. COMPREHENSIVE Routine 05/30/2020 11:48 Essential hyper tension Results for this METABOLIC PANEL [facility] Mixed hyperlipidemia proc edure are in the results section. LIPID PANEL Routine 05/30/2020 11:45 Essential hyper tension Results for this AM [facility] Mixed hyperlipidemia procedu re are in the results section. THYROID STIMULATING Routine 05/30/2020 11:42 Subclinical Resu lts for this HORMONE [facility] iodine-deficiency procedure are in hypothyroidism the results section. [id number] Routine 05/23/2020 US ABDOMEN COMPLETE Routine 02/08/2020 10:37 Liver disease Res ults for this AM CDT procedure are i n the results section. IP CONSULT TO Routine 02/04/2020 ONCOLOGY CBC WITH PLATELET AND Routine 12/28/2019 7:28 Essential hypertension Results for this DIFFERENTIAL AM CDT Mixed hyperlipidemia procedu re are in the results section. COMPREHENSIVE Routine 12/28/2019 7:26 Essential hyper tension Results for this METABOLIC PANEL AM CDT Mixed hyperlipidemia proc edure are in the results section. HEMOGLOBIN A1C Routine 12/28/2019 7:24 Essential hyper tension Results for this AM CDT Mixed hyperlipid emia procedure are in Hyperglycemia the results section. LIPID PANEL Routine 12/28/2019 7:22 Essential hyper tension Results for this AM CDT Mixed hyperlipidemia procedu re are in the results section. URINALYSIS, COMPLETE, Routine 12/28/2019 7:20 Essential hypertension Results for this WITH REFLEX TO AM CDT Mixed hyperlipidemia proce dure are in CULTURE the results section. THYROID STIMULATING Routine 12/28/2019 7:16 Subclinical Resu lts for this HORMONE AM CDT iodine-deficiency procedure are in hypothyroidism the results section. PROSTATE SPECIFIC Routine 12/28/2019 7:14 Prostate cancer Res ults for this ANTIGEN AM CDT screening procedure are i n the results section. after 06/04/2019 Results CBC with platelet and differential (05/30/2020 11:54 AM [facility])Only the most recent of2 resultswithin the time period is included. WBC 7.4 3.8 - 10.8 [facility] Thousand/uL [place] RBC 3.22 (L) 4.20 - 5.80 [facility] Million/uL [place] HGB 11.4 (L) 13.2 - 17.1 [facility] g/dL [place] HCT 33.0 (L) 38.5 - 50.0 % [facility] [place] MCV 102.5 (H) 80.0 - 100.0 [facility] fL [place] MCH 35.4 (H) 27.0 - 33.0 pg [facility] [place] MCHC 34.5 32.0 - 36.0 [facility] g/dL [place] RDW 12.4 11.0 - 15.0 % [facility] [place] Platelet count 261 140 - 400 [facility] Thousand/uL [place] MPV 10.1 7.5 - 12.5 fL [facility] [place] Neutrophils, absolute 3,818 1,500 - 7,800 [facility] cells/uL [place] Lymphocytes, absolute 1,872 850 - 3,900 [facility] cells/uL [place] Monocytes, absolute 1,036 (H) 200 - 950 [facility] cells/uL [place] Eosinophils, absolute 585 (H) 15 - 500 [facility] cells/uL [place] Basophils, absolute 89 0 - 200 [facility] cells/uL [place] Neutrophils 51.6 % [facility] [place] Lymphocytes 25.3 % [facility] [place] Monocytes 14.0 % [facility] [place] Eosinophils 7.9 % [facility] [place] Basophils + RC 1.2 % [facility] [place] Specimen Narrative Performed At FASTING:YES [facility] FASTING: YES Resulting Agency Comment Performing Organization Information: Site ID: [id number] Name: Shyla Grace Address: [address] [place] [phone] Director: Ruben Tobin Performing Organization Address [facility] Phon e Number SHYLA [facility] [place] [phone] Hemoglobin A1c (05/30/2020 11:52 AM [facility])Only the most recent of2 resultswithin the time period is included. Hemoglobin A1C 5.9 (H) <5.7 % of [facility] Comment: total Hgb EDWARDS For someone without known diabetes, a hemoglobin A1c value between 5.7% and 6.4% is consistent with prediabetes and should be confirmed with a follow-up test. For someone with known diabetes, a value <7% indicates that their diabetes is well controlled. A1c targets should be individualized based on duration of diabetes, age, comorbid conditions, and other considerations. This assay result is consistent with an increased risk of diabetes. Currently, no consensus exists regarding use of hemoglobin A1c for diagnosis of diabetes for children. Specimen Blood Narrative Performed At FASTING:YES [facility] FASTING: YES Resulting Agency Comment Performing Organization Information: Site ID: [id number] Name: Shyla Warren Address: [address] [place] [phone] Director: Ruben Tobin Performing Organization Address [facility] Phon e Number [employer] / [place] [address] URINALYSIS, COMPLETE, WITH REFLEX TO CULTURE (05/30/2020 11:51 AM [facility])Only the most recent of2 resultswithin the time period is included. Color, UA DARK YELLOW YELLOW [facility] [place] Appearance CLEAR CLEAR [facility] [place] Specific gravity, 1.014 1.001 - 1.035 [facility] urine [place] pH, urine < OR = 5.0 5.0 - 8.0 [facility] [place] Glucose, urine NEGATIVE NEGATIVE [facility] [place] Bilirubin, UA NEGATIVE NEGATIVE [facility] [place] Ketones, UA TRACE (A) NEGATIVE [facility] [place] Occult blood, NEGATIVE NEGATIVE [facility] urine [place] Protein, UA NEGATIVE NEGATIVE [facility] [place] Nitrite, UA NEGATIVE NEGATIVE [facility] [place] Leukocyte NEGATIVE NEGATIVE [facility] esterase, UA [place] WBC, UA NONE SEEN < OR = 5 /HPF [facility] [place] RBC, UA NONE SEEN < OR = 2 /HPF [facility] [place] Squamous NONE SEEN < OR = 5 /HPF [facility] epithelial cells, [place] UA Bacteria, UA NONE SEEN NONE SEEN /HPF [facility] [place] Hyaline casts, UA NONE SEEN NONE SEEN /LPF [facility] [place] Reflex Comment: NO [facility] CULTURE [place] INDICATED Specimen Narrative Performed At FASTING:YES [facility] FASTING: YES Resulting Agency Comment Performing Organization Information: Site ID: [id number] [facility]: [facility] Address: [address] [place] [phone] Director: Ruben Tobin Performing Organization Address City/State/ZIP Code Phon e Number [facility] [place] [address] [place] [phone] Comprehensive metabolic panel (05/30/2020 11:48 AM [facility])Only the most recent of2 resultswithin the time period is included. Glucose 113 (H) 65 - 99 [facility] Comment: mg/dL [place] Fasting reference interval For someone without known diabetes, a glucose value between 100 and 125 mg/dL is consistent with prediabetes and should be confirmed with a follow-up test. BUN 15 7 - 25 mg/dL [facility] [place] Creatinine 1.13 0.70 - 1.33 [facility] Comment: mg/dL [place] For patients >49 years of age, the reference limit for Creatinine is approximately 13% higher for people identified as -[place]. EGFR Non-Afr. 74 > OR = 60 [facility] [place] mL/min/1.73m [place] 2 EGFR 86 > OR = 60 [facility] [place] mL/min/1.73m [place] 2 BUN/creatinine NOT APPLICABLE 6 - 22 [facility] ratio (calc) [place] Sodium 142 135 - 146 [facility] mmol/L [place] Potassium 4.9 3.5 - 5.3 [facility] mmol/L [place] Chloride 105 98 - 110 [facility] mmol/L [place] CO2 28 20 - 32 [facility] mmol/L [place] Calcium 10.7 (H) 8.6 - 10.3 [facility] mg/dL [place] Protein 7.1 6.1 - 8.1 [facility] g/dL [place] Albumin, S 4.4 3.6 - 5.1 [facility] g/dL [place] Globulin, total 2.7 1.9 - 3.7 [facility] g/dL (calc) [place] Albumin/globulin 1.6 1.0 - 2.5 [facility] ratio (calc) [place] Total bilirubin 0.4 0.2 - 1.2 [facility] mg/dL [place] Alkaline 45 35 - 144 U/L [facility] phosphatase [place] AST 38 (H) 10 - 35 U/L [facility] [place] ALT 29 9 - 46 U/L [facility] [place] Specimen Narrative Performed At FASTING:YES [facility] FASTING: YES Resulting Agency Comment Performing Organization Information: Site ID: [id number] Name: [facility] Address: [address] [place] [phone] Director: Ruben Tobin Performing Organization Address City/State/ZIP Code Phon e Number [facility] [place] [id number] Lipid panel (05/30/2020 11:45 AM [facility])Only the most recent of2 resultswithin the time period is included. Cholesterol, total 190 <200 mg/dL [facility] [place] HDL cholesterol 59 > OR = 40 [facility] mg/dL [place] Triglycerides 486 (H) <150 mg/dL [facility] Comment: [place] If a non-fasting specimen was collected, consider repeat triglyceride testing on a fasting specimen if clinically indicated. Susan et al. J. of Clin. Lipidol. 2015;9:129-169. LDL cholesterol mg/dL (calc) [facility] calculated Comment: [place] LDL cholesterol not calculated. Triglyceride levels greater than 400 mg/dL invalidate calculated LDL resul ts. Reference range: <100 Desirable range <100 mg/dL for primary prevention; <70 mg/dL for patients with CHD or diabetic patients with > or = 2 CHD risk factors. LDL-C is now calculated using the Ina calculation, which is a validated novel method providi ng better accuracy than the Friedewald equation in the estimation of LDL-C. Gus DELGADO et al. AMANDO. 2013;310(19): 5942-6296 (http://education.Life is Tech/faq/YCV737) Cholesterol/HDL 3.2 <5.0 (calc) [facility] ratio [place] Non-HDL cholesterol 131 (H) <130 mg/dL [facility] Comment: (calc) [place] For patients with diabetes plus 1 major ASCVD risk factor, treating to a non-HDL-C goal of <100 mg/dL (LDL-C of <70 mg/dL) is considered a therapeutic option. Specimen Narrative Performed At FASTING:YES [facility] FASTING: YES Resulting Agency Comment Performing Organization Information: Site ID: [id number] Name: [facility] Address: [address] [place] [phone] Director: Ruben Tobin Performing Organization Address City/[facility] [place] [address] Thyroid stimulating hormone (05/30/2020 11:42 AM [facility])Only the most recent of2 resultswithin the time period is included. Pathologist Sig nature TSH 0.73 0.40 - 4.50 mIU/L [facility] Specimen Narrative Performed At FASTING:NO [facility] FASTING: NO Resulting Agency Comment Performing Organization Information: Site ID: [id number] Name: [facility] Address: [address] [place] [phone] Director: Ruben Tobin Performing Organization Address [facility] [place] [address] Miscellaneous Lab Result (05/23/2020) Specimen Blood Narrative Performed At This result has an attachment that is no t available. US Abdomen Complete (02/08/2020 10:37 AM CDT) Specimen Narrative Performed At EXAM: US ABDOMEN COMPLETE [facility] CLINICAL HISTORY: K76.9 Liver disease unspecified, LIVER DISEASE COMPARISON: No TECHNIQUE: Complete abdominal ultrasound obtained. FINDINGS: Borderline fatty liver. No focal lesion identified. Li zainab is not enlarged.. Gallbladder appears normal. Main portal v ein patent and normal in size, 12 mm. Common bile 5 mm within normal range.. . Visualized portions of pancreas unremarkable; distal b segun and tail obscured by bowel gas. Spleen demonstr ates nothing unusual. Renal survey images show kidneys measure 10.9 cm on th e right and 11.3 cm on the left with no hydronephrosis on either side. Visualized portions of abdominal aorta and IVC unremar kable. No ascites or pleural effusion identified. IMPRESSION: 1. Borderline fatty liver. [id number] Procedure Note Hm Interface, Radiology Results Incoming - 02/08/2020 10:45 AM CDT EXAM: US ABDOMEN COMPLETE CLINICAL HISTORY: K76.9 Liver disease unspecified, LIVER DISEASE COMPARISON: No TECHNIQUE: Complete abdominal ultrasound obtained. FINDINGS: Borderline fatty liver. No focal lesion identified. Liver is not enlarged.. Gallbladder appears normal. Main portal vein patent and normal in size, 12 mm. Common bile 5 mm within normal range.. . Visualized portions of pancreas unremark able; distal body and tail obscured by bowel gas. Spleen demonstrates nothing unusual. Renal survey images show kidneys measure 10.9 cm on the right and 11.3 cm on the left with no hydronephrosis on either side. Visualized portions of abdominal aorta a nd IVC unremarkable. No ascites or pleural effusion identified. IMPRESSION: 1. Borderline fatty liver. [facility]-[id number] Performing Organization Address [facility] Phon e Number [facility] [address] [place] [address] Consult Oncology (02/04/2020) Narrative Performed At This result has an attachment that is no t available. Prostate specific antigen (12/28/2019 7:14 AM CDT) PSA 0.5 < OR = 4.0 [facility] Comment: ng/mL [place] The total PSA value from this assay system is standardized against the WHO standard. The test result will be approximately 20% lower when compared to the equimolar-standardized total PSA (Rupinder Sharri). Comparison of serial PSA results should be interpreted with this fact in mind. This test was performed using the Siemens chemiluminescent method. Values obtained from different assay methods cannot be used interchangeably. PSA levels, regardless of value, should not be interpreted as absolute evidence of the presence or absence of disease. Specimen Narrative Performed At FASTING:YES [facility] FASTING: YES Resulting Agency Comment Performing Organization Information: Site ID: [id number] Name: [employer] [facility] Address: [address] [place] [id number] Director: Ruben Tobin Performing Organization Address City/[facility]/ZIP Code Phon e Number [employer] [place] [address] [place] [address] after 06/04/2019 Advance Directives For more information, please contact: [phone] Type Date Recorded Patient Software Project Engineer Explanati on Advance Directives, Living Will and Medical Power of Screener And Blender
--- OUTSIDE RECORDS SUMMARY | 2020-06-04 11:54 | XMS REPORT | Continuity of Care Document ---
:1965 Author Organization [facility] [facility] Care Team Providers Name Role Phone [facility] [facility] Unavailable Un available Problems Problem Status Onset Classification Date Comments Sourc e Date Reported H55.00 - Active 03/11/20 [facility] UNSPECIFIED 19 [place] NYSTAGMUS Discharge 03/31/20 04/03/2016 Clair nd Diagnosis: DVT 16 of upper extremity (deep vein thrombosis) Discharge 03/31/20 04/03/2016 [place] marroquin Diagnosis: 16 Hyperglycemia SOB Active 03/31/[address] Hypertensive Resolved Problem 03/25/2019 disorder, Esperanza,David H systemic OPID arterial David Mata (disorder) [facility] [place] LUMBOSACRAL Active [facility] [place] [facility] [place] LUMBOSACRAL Active [facility] T own SP[place]Y W/O & MYELOPATHY [place],[facility] [place] AQUA LUMBOSACRAL Active [facility] [place] Medications Medication Details Route Status Patient Ordering Order Source Instructions Provider Date {42 1 tab, PO, Active (rivaroxaban BID-Meals, 016 [place] 15 MG Oral Take 15 mg Tablet tablets twice [Xarelto]) / daily with 9 food for 21 (rivaroxaban days. 20 MG Oral Beginning day Tablet 22,take one 20 [Xarelto]) } mg tablet Pack [Xarelto daily with Kit] food for the remainder of therapy., X 30 day, # 1 pkt, 0 Refill(s) Xarelto Notes: (Same Inactive as: Xarelto) Lucio Mata Administer with food Sodium 1,000 mL, Inactive Chloride 1,000 ml/hr, 016 [place] 0.154 MEQ/ML Infuse Over: 1 Injectable hr, Route: IV, Solution 1,000, Drug form: INJ, ONCE, Priority: STAT, Dosing Weight 103.636 kg, Start date: 03/31/16 15:28:00 CDT, Duration: 1 doses or times, Stop date: 03/31/16 15:28:00 CDT Morphine 4 mg, Route: Inactive IVP, ONCE, 016 [place] Dosing Weight 103.636, kg, Priority: STAT, Start date: 03/31/16 14:17:00 CDT, Stop date: 03/31/16 14:17:00 CDT Ondansetron 4 mg, Route: Inactive IVP, ONCE, 016 [place] Dosing Weight 103.636, kg, Priority: STAT, Start date: 03/31/16 14:17:00 CDT, Stop date: 03/31/16 14:17:00 CDT Saline Flush Notes: Inactive 0.9% preservative 016 [place] free. Allergies, Adverse Reactions, Alerts Substance Category Reaction Severity Reaction Status Date Comments S ource type Reported AYANNA Assertion Trazodone Drug Active MH O PID Inhibitors allergy Nella and traZODone Assertion Drug Active MH O PID allergy [place] Immunizations No Data Provided for This Section Results Order Name Results Value Reference Date Interpretation Comments Kenia rce Range URINE AND UA Bacteria None Seen None Seen 03/31 STOOL (03/31/16 4:26 PM) /2015 [place] URINE AND Micro? Performed 03/31 STOOL (03/31/16 4:26 PM) [place] URINE AND UA RBC 0-2 /HPF 0 - 2 03/31 STOOL /2015 [place] URINE AND UA Sq Epi None Seen Few 03/31 STOOL (03/31/16 4:26 PM) /2015 [place] URINE AND UA WBC None Seen None Seen 03/31 STOOL (03/31/16 4:26 PM) /2015 [place] URINE AND UA Color Yellow Yellow 03/31 STOOL *NA* /2015 [place] (03/31/16 4:26 PM) URINE AND UA Turbidity Clear Clear 03/31 STOOL (03/31/16 4:26 PM) [place] URINE AND UA 0.2 0.1 - 1.0 03/31 STOOL Urobilinogen /2015 [place] URINE AND UA Glucose >=1000 Negative 03/31 STOOL mg/dL mg/dL /2015 [place] URINE AND UA Ketones 15 mg/dL Negative 03/31 STOOL mg/dL /2015 [place] URINE AND UA Bili Negative Negative 03/31 STOOL *NA* /2015 [place] (03/31/16 4:26 PM) URINE AND UA Blood Negative Negative 03/31 STOOL (03/31/16 4:26 PM) /2015 [place] URINE AND UA Leuk Est Negative Negative 03/31 STOOL (03/31/16 4:26 PM) /2015 [place] URINE AND UA Nitrite Negative Negative 03/31 STOOL (03/31/16 4:26 PM) /2015 [place] URINE AND UA Protein Negative Negative 03/31 STOOL (03/31/16 4:26 PM) /2015 [facility] nd URINE AND UA Spec Grav <=1.005 <=1.030 03/31 STOOL *NA* /2015 [place] (03/31/16 4:26 PM) URINE AND UA pH 7.0 5.0 - 8.0 03/31 STOOL /2015 [place] CARDIAC Total CK 151 12 - 191 03/31 ENZYMES [place] CARDIAC CK MB 1.5 0.5 - 3.6 03/31 ENZYMES /2015 [place] CARDIAC Troponin-I <0.02 0.00 - 03/31 ENZYMES 0.40 [place] CARDIAC CK-MB INDEX 1.0 0.0 - 2.5 03/31 ENZYMES [place] CARDIAC proBNP 75 0 - 125 03/31 ENZYMES [place] CHEM PANEL ALANINE 49 0 - 65 03/31 AMINOTRANSFE /2015 [place] RASE CHEM PANEL A/G Ratio 1.0 0.7 - 1.6 03/31 MH /2015 [place] CHEM PANEL Globulin 3.7 2.7 - 4.2 03/31 /2015 [place] CHEM PANEL B/C Ratio 12 6 - 25 03/31 /2015 [place] CHEM PANEL AGAP 18.2 10.0 - 03/31 MH 20.0 /2015 [place] CHEM PANEL ASPARTATE 29 0 - 37 03/31 TRANSAMINASE /2015 [place] CHEM PANEL Total 7.5 6.4 - 8.4 03/31 Protein /2015 [place] CHEM PANEL Bili Total 0.5 0.2 - 1.3 03/31 [place] CHEM PANEL Calcium Lvl 9.5 8.5 - 10.5 03/31 [place] CHEM PANEL CO2 24 24 - 32 03/31 [place] CHEM PANEL Chloride Lvl 97 95 - 109 03/31 [place] CHEM PANEL Potassium 4.2 3.5 - 5.1 03/31 MH Lvl /2015 [place] CHEM PANEL Sodium Lvl 135 135 - 145 03/31 [place] CHEM PANEL Creatinine 1.17 0.50 - 03/31 MH Lvl 1.40 /2015 [place] CHEM PANEL BUN 14 7 - 22 03/31 [place] CHEM PANEL Glucose Lvl 382 70 - 99 03/31 [place] CHEM PANEL Alk Phos 55 39 - 136 03/31 [place] CHEM PANEL Albumin Lvl 3.8 3.5 - 5.0 03/31 [place] CHEM PANEL eGFR 73 03/31 Result Comment: The [place] eGFR is calculated using the CKD-EPI formula. In most young, healthy individuals the eGFR will be >90 mL/min/1.73m2 . The eGFR declines with age. An eGFR of 60-89 may be normal in some populations, particularly the elderly, for whom the CKD-EPI formula has not been extensively validated. Use of the eGFR is not recommended in the following populations:< br/>
Ashley viduals with unstable creatinine concentration s, including patients and those with serious co-morbid conditions.<b r/>
Patie nts with extremes in muscle mass or diet.

The data above are obtained from the National Kidney Disease Education Program (NKDEP) which additionally recommends that when the eGFR is used in patients with extremes of body mass index for purposes of drug dosing, the eGFR should be multiplied by the estimated BMI. HEMATOLOGY MCHC 35.1 32.0 - 03/31 MH 36.0 [place] HEMATOLOGY RDW 12.8 11.5 - 03/31 MH 14. [place] HEMATOLOGY MPV 9.6 7.4 - 10.4 03/31 [place] HEMATOLOGY Platelet 238 133 - 450 03/31 [place] HEMATOLOGY MCH 33.4 27.0 - 03/31 MH 31.0 [place] HEMATOLOGY Hct 39.7 42.0 - 03/31 MH 54.0 /2015 [place] HEMATOLOGY MCV 95.1 80.0 - 03/31 MH 94.0 /2015 [place] HEMATOLOGY WBC X 10x3 9.2 3.7 - 10.4 03/31 MH /2015 [place] HEMATOLOGY RBC X 10x6 4.17 4.70 - 03/31 MH 6.10 /2015 [place] HEMATOLOGY Hgb 13.9 14.0 - 03/31 MH 18.0 /2015 [place] HEMATOLOGY INR 0.82 0.85 - 03/31 MH 1.17 [place] HEMATOLOGY PROTIME 11.6 12.0 - 03/31 MH 14.7 /2015 [place] HEMATOLOGY aPTT 23.0 22.9 - 03/31 MH 35.8 /2015 [place] HEMATOLOGY Eosinophils 6.3 0.0 - 4.0 03/31 MH /2015 [place] HEMATOLOGY Basophils 0.5 0.0 - 1.0 03/31 MH /2015 [place] HEMATOLOGY Lymphocytes 28.5 20.0 - 03/31 MH 40.0 [place] HEMATOLOGY Segs 54.8 45.0 - 03/31 MH 75.0 /2015 [place] HEMATOLOGY Monocytes 9.9 2.0 - 12.0 03/31 /2015 [place] HEMATOLOGY Lymphocytes 2.6 1.0 - 5.5 03/31 MH # /2015 [place] HEMATOLOGY Segs-Bands # 5.1 1.5 - 8.1 03/31 /2015 [place] HEMATOLOGY Monocytes # 0.9 0.0 - 0.8 03/31 /2015 [place] HEMATOLOGY Eosinophils 0.6 0.0 - 0.5 03/31 MH # /2015 [place] Pathology Reports No Data Provided for This Section Diagnostic Reports Report Value Date Source Brain w/wo contrast Patient Name: LILIA SHAH 03/23/2019 [facility] [place] MRI : 1965. Age: 53 years. Gender: Male. MR: [id number]. Location: [facility]. Provider: Jose Alberto Swanson MD. EXAM: Brain w/wo contrast MRI. PROVIDED CLINICAL HISTORY: H55.00 Unspecifie d nystagmus TECHNIQUE: Multi-sequence, m ulti-planar MR of the brain without and with gadolinium contrast. CONTRAST: Dotarem, 17 mL. COMPARISON: No relevant prior exams available at the time of interpretation. FINDINGS: BRAIN: -- Mild confluent abnorma lly increased T2 and FLAIR signal throughout the supratentorial periventricular deep white matter bilaterally, non-specific but most commonly due to chronic small vessel ischemic disease. -- No abnormal parenchym al, ependymal, or meningeal enhancement. No areas of abnormally-restricted diffusion in a pattern suggestive of acute or early subacute ischemia. No acute intracranial hemo rrhage. No other fluid colle ction. No intracranial mass. No cerebellar tonsillar ectopia. Age-consistent brain parenchymal volume. VENTRICLES / CISTERNS / SHIF T: No hydrocephalus. No significant effacement of the basal cisterns or foramen magnum. No significant midline shift. VESSELS: No loss of flow voi ds within the major intracranial vessels or dural sinuses. Vessel and dural sinus patency are not adequately assessed without dedicated angiography or venography. BONES / SCALP: No acute fra cture. No significant systemic marrow signal abnormality. No aggressive bony lesions. No significant extracranial soft tissue abnormality. IMAGED SINUSES / MASTOIDS / MISC: No significant sinus mucosal thickening. No significant paranasal sinus fluid. No significant mastoid signal abnormality. IMPRESSION: No acute intracranial abnormality. Mild chronic microangiopathic ischemic gliosis. SL: [id number] Ext Upper Venous Patient Name: LILIA SHAH 03/31/2016 [facility] Doppler Unilat US : 1965; Age: 50 years y/o Male MR: [id number] Study: Right upper extremity venous Doppler ultr asound dated 03/31/2016. Clinical Indication: Right arm pain.; Comparison: None Color Doppler, spectral Dopp ler waveform analysis, compression views and grayscale imaging performed of the right internal jugular vein, right subclavian vein, right axillary vein, right cephalic vein, right basilic vein and right brachial vein. The distal right basilic vei n is noncompressible and has echogenic material consistent with thrombosis. No thrombosis to the remainder of the right basilic vein. No thrombosis of the right i nternal jugular vein, right subclavian vein, right axillary vein, right brachial vein and right cephalic vein. SL: CSODERSTROM-PC Chest Pulmonary CTA CHEST WITH CONTRAST, WITH PULMONARY EMBOLUS PROTOCOL 03/31/2016 [facility] INDICATION: Chest tightness , shortness of breath post surgery 3 days ago COMPARISON: Chest and venous Doppler this date Technique: Axial images were obtained during bolus nonionic intravenous contrast administration, Omnipaque 75 mL ,followed by the routine examination. 3-D, sagittal and coronal reconstructions were obtained. CT Radiation Dose: DLP = 996.05 mGy-cm CT ANGIOGRAM: No pulmonary arterial filling defect is identified that would indicate pulmonary embolus. Minor coronary artery calcifications are noted. CT CHEST: No pulmonary mass or airspace consolidation identified. There is right upper lobe volume loss with medial right upper lobe bronchiectasis. No endobronchial obstructing lesion is identified. Minor left lower lobe scarring is noted. There is no hilar or mediast inal adenopathy. No pleural or pericardial effusion is seen. Images the upper abdomen are remarkable for fatt y liver. IMPRESSION: 1. No pulmonary embolus or other acute abnormal ity. 2. Right upper lobe volume loss with segmental b ronchiectasis. 3. Minor coronary artery calcifications. [facility] 03/31/2016 [facility] EXAM: Chest radiograph HISTORY: Chest pain shortness of breath starting yesterday COMPARISON: None TECHNIQUE: Frontal view of the chest FINDINGS/IMPRESSION: Heart size normal. COPD. No appreciable pneumonia, edema or pleural effusion. Question of 8 mm lung nodule versus vessel in the peripheral left lower lung; follow-up frontal and lateral views of the chest can reevaluate. SL: [id number] Consultation Notes No Data Provided for This Section Discharge Summaries No Data Provided for This Section History and Physicals No Data Provided for This Section Vital Signs Vital Sign Value Date Comments Source Temperature Oral (F) 97.8 F 03/31/2016 [place] Rate 18 03/31/[address] [facility] Heart Rate 62 03/31/2016 [place] Systolic (mm Hg) 107 03/31/2016 [place] Diastolic (mm Hg) 71 03/31/2016 [place] Heart Rate 60 03/31/[address] [facility] Systolic (mm Hg) 110 [facility] ([facility]) 69 03/31/2016 [place] Rate 18 03/31[facility]2016 [facility] 62 03/31/[address] [facility] Systolic (mm Hg) 129 03/31/[address] [facility] Diastolic (mm Hg) 59 03/31/2016 [place] Rate 20 03/31/[address] [facility] Weight 103.636 03/31/[address] [facility] Height 180.34 cm 03/31/[address] [facility] BMI Calculated 31.87 03/31/[address] [facility] Temperature Oral (F) 97.3 F 03/31/2016 [facility] Encounters Location Location Encounter Encounter Reason Attending ADM DC Stat us Source Details Type Number For Provider Date Date Visit [facility] OP Therapy [id number] [place] 03/26 04/25 [facility] [id number] Edil 03/31 03/31 [place] Malya /2015 [facility] OP Therapy [id number] Landon 06/08 07/08 [facility] Patients Irr Jr [facility] Di[facility] [id number] Jodi 03/23 03/24 [facility] Swanson /2018 [facility] [place] Procedures No Data Provided for This Section Assessment and Plan No Data Provided for This Section Plan of Care No Data Provided for This Section Social History Social History Date Source Social History TypeResponse 03/31/2016 [facility] Smoking Status [place] Former smoker; Exposure to Tobacco Smoke None; Cigarette Smoking Last 365 Days No; Reg Smoking Cessation Counseling No Social History TypeResponse 03/31/[address] [facility] Smoking Status Former smoker; Exposure to Tobacco Smoke None; Cigarette Smoking Last 365 Days No; Reg Smoking Cessation Counseling No Social History TypeResponse 03/31/2016 [facility] Smoking Status Former smoker; Exposure to Tobacco Smoke None; Cigarette Smoking Last 365 Days No; Reg Smoking Cessation Counseling No entered on: 03/31/16 Family History No Data Provided for This Section Advance Directives No Data Provided for This Section Functional Status No Data Provided for This Section
--- OUTSIDE RECORDS SUMMARY | 2020-06-04 11:55 | XMS REPORT | Continuity of Care Document ---
:1965 Author Organization [facility] t Address [address] [place] [address] Dr. Davila. [address] [place] [address] Care Team Providers Name Role Phone Mars Abreu Primary Care Physician Christiana Kincaid MD Attending Clinician Pippa CABRERA Attending Clinician Aly MCKEON Attending Clinician Unavailable Meredith CABRERA, HNava Attending Clinician THEO Attending Clinician Unavailable Noemi Zuluaga Attending Clinician Elva Swanson Attending Clinician Lila CABRERA Attending Clinician Enedina Mendez Jr Attending Clinician Mari Johnson Attending Clinician Payers Payer Name Policy Type Policy Effective Date Expiration Date Sour ce Number BCBSBCBS CHOICE [id number] 2016 [place] PPO/FEDERAL 00:00:00 Religion EMPL [id number] 2016-Prese ntPPO Problems Condition Condition Condition Status Onset Resolution Last Treating Co mments Source Name Details Category Date Date Treatment Clinician Date Stage 3a Stage 3a Disease Active 2019-07 [place] chronic chronic 1-16 [facility] kidney kidney 00:00: st disease disease 00 Gastroesop Gastroesop Disease Active 2019-07 H [facility] hageal hageal 1-16 Methodi reflux reflux 00:00: st disease disease 00 H55.00 - Diagnosis Active 2019-03-23 M emoria UNSPECIFIE 03-11 14:58:00 l D H55.00 - 00:01: Lionel krishna NYSTAGMUS UNSPECIFIE 00 D NYSTAGMUS Active 03/11/2019 BHAVESH CASEY [place] Disease of Disease of Disease Active H michelle thyroid thyroid 02-17 Methodi gland gland 00:00: st 00 Chronic Chronic Disease Active Díaz back pain back pain 1-20 Meth tegan 00:00: st 00 Hyperlipid Hyperlipid Disease Active H michelle emia emia 04-05 Methodi 00:00: st 00 Essential Essential Disease Active Dina ston hypertensi hypertensi 04-05 Me thodi on on 00:00: st 00 SOB Diagnosis Active 2016-03-31 Mem oria 03-31 14:46:00 l SOB 00:00: [place] 00 Active 03/31/2016 [facility] Hypertensi Problem Resolve 2019-03-25 Memoria ve d 22:40:30 l disorder, Venancio systemic Hypertensi arterial ve (disorder) disorder, systemic arterial (disorder) Resolved Problem 03/25/2019 David Story,M [facility] LUMBOSACRA Diagnosis Active 2016-04-16 Memoria L SPONDY 17:39:00 l Venancio LUMBOSACRA L SPONDY Active [facility] LUMBOSACRA Diagnosis Active 2016-04-14 Memoria L SPONDY 16:38:00 l W/O [place] MYELOPATHY LUMBOSACRA L SPONDY W/O MYELOPATHY Active [facility] [place] AQUA Diagnosis Active 2016-06-08 Mem oria LUMBOSACRA 08:08:00 l L AQUA [place] LUMBOSACRA L Active [facility] [place] Discharge Problem 2016-04-03 2016-04-03 Memoria Diagnosis: 03-31 01:18:28 01:18:28 l DVT of 05:00: Venancio upper Discharge 00 extremity Diagnosis: (deep vein DVT of thrombosis upper ) extremity (deep vein thrombosis ) 03/31/2016 04/03/2016 [facility] Discharge Problem 2016-04-03 2016-04-03 Memoria Diagnosis: 03-31 01:18:28 01:18:28 l Hyperglyce 05:00: Lionel n raman Discharge 00 Diagnosis: Hyperglyce raman 03/31/2016 04/03/2016 [facility] Allergies, Adverse Reactions, Alerts Allergy Allergy Status Severity Reaction(s) Onset Inactive Treating Comm ents Source Name Type Date Date Clinician Amlodipi Propensi Active Hives [place] ne ty to -10 Method[facility] adverse 00:00: st reaction 00 s to drug Александр Propensi Active Hives [place] Inhibito ty to 04-05 Methodi rs adverse 00:00: st reaction 00 s to drug Trazodon Propensi Active Hives [place] e ty to 04-05 Methodi adverse 00:00: st reaction 00 s to drug Hymenopt Propensi Active Anaphylaxis, [place] era ty to Shortness Of 04-05 Meth tegan Allergen adverse Breath 00:00: st ic reaction 00 Extract s to drug Александр Drug Active Hives [facility] Trazodon Drug Active Hives [facility] АЛЕКСАНДР АЛЕКСАНДР Active Memoria Inhibito Inhibito l rs rs [place] traZODon traZODon Active Memori a e e l Venancio Social History Social Habit Start Date Stop Date Quantity Comments Source Sex Assigned At [place] Religion Cigarettes smoked 2020-05-30 2020-05-30 [place] current (pack per 00:00:00 00:00:[address] day) - Reported Cigarette 2020-05-30 2020-05-30 [place] pack-years 00:00:00 00:00:00 Religion Tobacco use and 2020-05-30 2020-05-30 Never used [place] exposure 00:00:00 00:00:00 Religion Alcohol intake 2020-05-30 2020-05-30 Current drinker [place] 00:00:00 00:00:00 of alcohol Religion (finding) Alcohol Comment 2020-01-22 2020-01-22 Reduced alcohol [place] 00:00:00 00:00:00 use due to Religion diabetes diagnosis Tobacco Comment 2016-03-26 2016-03-26 dips 2/[address] [facility] History of tobacco 1982 2013-05-14 Current smoker Evangelista moreno use 00:00:00 00:00:00 Religion Smoking Status Start Date Stop Date Source Former smoker 2020-05-30 00:00:00 2020-05-30 00:00:00 [place] Religion Medications Ordered Filled Start Stop Current Ordering Indication Dosage Frequency Signature Comments Components Source Medication Medication Date Date Medication? Clinician (SIG) Name Name levothyroxi 2019-07 Yes Other 50ug QD Take 1 Dina ston ne 0-04 specified tablet (50 Meth tegan (SYNTHROID) 00:00: hypothyroid mcg total) st 50 mcg 00 ism by mouth tablet every morning. omega-3 2019-07 Yes Hypertrigly TAKE 1 [place] acid ethyl 0-04 ceridemia CAPSULE M ethodi esters 00:00: TWICE A st (LOVAZA) 1 00 DAY gram capsule esomeprazol 2019-07 Yes Gastroesoph TAKE 1 Díaz e (NexIUM) 0-04 ageal CAPSULE Metho di 40 MG 00:00: reflux DAILY st capsule 00 disease BEFORE BREAKFAST fexofenadin 2019-0 Yes [place] e (RAN) 03-28 Methodi 180 MG 08:47: st tablet 33 lutein 20 2019-0 Yes Díaz mg capsule 03-28 Methodi 08:47: st 33 ascorbic 2020-0 Yes Dí[place] acid, 03-28 Methodi vitamin C, 08:47: st (vitamin C) 33 1000 MG tablet aspirin 2019-0 Yes 81mg QD Take 81 mg [place] (ECOTRIN) -14 by mouth Method i 81 MG 08:47: daily. st enteric 33 coated tablet tacrolimus 2019-0 Yes Q.5D Apply [place] (PROTOPIC) 9- topically Meth tegan 0.1 % 08:47: 2 (two) st ointment 33 times a day. hydroCHLORO 2019-2020- Yes 12.5mg QD Take 1 [place] thiazide 03-28- tablet Methodi (HYDRODIURI 00:00: 23:59 (12.5 mg s t L) 12.5 MG 00 :00 total) by tablet mouth daily. atorvastati Yes 10mg QD Take 1 [place] (LIPITOR) 02-23 tablet (10 Me thodi 10 mg 00:00: mg total) st tablet 00 by mouth daily. losartan Yes Type 2 100mg QD Take 1 [place] (COZAAR) 02-23 diabetes tablet Metho di 100 MG 00:00: mellitus ([address] tablet 00 without total) by complicatio mouth n (HCC) daily. esomeprazol 2019- No Gastroesoph TAKE 1 Díaz e (NexIUM) 02-23 ageal CAPSULE Meth tegan 40 MG 00:00: 00:[address] capsule 00 :00 disease, BEFORE esophagitis BREAKFAST presence not specified levothyroxi 2019- No Other 50ug QD Take 1 [place] ne 02-23 specified tablet (50 Met hodi (SYNTHROID) 00:00: 00:00 hypothyroid mcg total) st 50 mcg 00 :00 ism by mouth tablet every morning. omega-3 2019- No Hypertrigly 1g Q.5D Take 1 Díaz acid ethyl 02-23 ceridemia capsule (1 Methodi esters 00:00: 00:00 g total) st (LOVAZA) 1 00 :00 by mouth 2 gram (two) capsule times a day. losartan 2019- No Type 2 TAKE 1 [place] (COZAAR) 02-0312 diabetes TABLET Meth tegan 100 MG 00:00: 00:[address] tablet 00 :00 without complicatio n (HCC) clobetasoL 2019- No Drug Q.5D Apply [place] (TEMOVATE) 01-21 0720 induced topically Methodi 0.05 % 00:00: 23:59 allergic 2 (two) st cream 00 :00 contact times a dermatitis day for 10 days. Apply to affected areas below the face twice daily for 10 days predniSONE 2019- No Drug Take 1 [place] (DELTASONE) 01-21 07-19 induced tablet 3 Methodi 20 mg 00:00: 23:[address] tablet 00 :00 contact daily for dermatitis 3 days then 1 tablet twice daily for 3 days then 1 tablet once daily for 3 days amLODIPine 2019- No 5mg QD Take 1 [place] (NORVASC) 5 01-05 08-12 tablet (5 Me thodi mg tablet 00:00: 00:00 mg total) st 00 :00 by mouth daily. nystatin-tr 2019- No Q.5D Apply [place] iamcinolone 11-26-24 topically Me thodi (MYCOLOG) 00:00: 00:00 2 (two) st 100,000-0.1 00 :00 times a unit/gram-% day. ointment miconazole 2019- No Apply [place] (Zeasorb 11-26-14 topically Metho di AF) 2 % 00:00: 23:[address] powder 00 :00 for itching for up to 30 days. levothyroxi 2019- No Other TAKE 1 [place] ne 11-15 specified TABLET Methodi (SYNTHROID) 00:00: 00:[address] 50 mcg 00 :00 ism MORNING tablet omega-3 2019- No Hypertrigly TAKE 1 Díaz acid ethyl 11-15 ceridemia CAPSULE Methodi esters 00:00: 00:[address] (LOVAZA) 1 00 :00 DAY gram capsule atorvastati 2019- No TAKE 1 Dina ston n (LIPITOR) 11-1512 TABLET Metho di 10 MG 00:00: 00:[address] tablet 00 :00 losartan 2019-2019- No Type 2 TAKE 1 [place] (COZAAR) 11-15 0723 diabetes TABLET Meth tegan 100 MG 00:00: 00:[address] tablet 00 :00 without complicatio n (HCC) chlorthalid 2019-2019- No 25mg QD Take 1 Dina ston one 3-23 06-24 tablet (25 Methodi (HYGROTEN) 00:00: 00:00 mg total) s t 25 MG 00 :00 by mouth tablet daily. chlorthalid 2019-2019- No 25mg QD Take 1 Dina ston one 2-27 03-23 tablet (25 Methodi (HYGROTEN) 00:00: 00:00 mg total) s t 25 MG 00 :00 by mouth tablet daily. chlorhexidi 2019- No Q24H Apply [place] ne 09-07 03-25 topically Methodi (HIBICLENS) 00:00: 23:59 daily as s t 4 % 00 :00 needed for external wound care liquid for up to 30 days. clindamycin 2019- No 300mg Q.25D Take 1 [place] (Cleocin 2 03-05 capsule Methodi HCL) 300 MG 00:00: 23:59 ([address] capsule 00 :00 total) by mouth 4 (four) times a day for 10 days. omega-3 2019- No Hypertrigly TAKE 1 Díaz acid ethyl 08-24- ceridemia CAPSULE Methodi esters 00:00: 00:[address] (LOVAZA) 1 00 :00 DAY gram capsule levothyroxi 2019- No Other TAKE 1 [place] 2 05- specified TABLET Methodi (SYNTHROID) 00:00: 00:[address] 50 mcg 00 :00 ism MORNING tablet losartan 2019- No Type 2 TAKE 1 [place] (COZAAR) 04-12 05-04 diabetes TABLET Meth tegan 100 MG 00:00: 00:[address] tablet 00 :00 without complicatio n (HCC) omega-3 2019- No Hypertrigly TAKE 1 Díaz acid ethyl 04-12-10 ceridemia CAPSULE Methodi esters 00:00: 00:[address] (LOVAZA) 1 00 :00 DAY gram capsule levothyroxi 2019- No Other TAKE 1 [place] ne 04-12 02-10 specified TABLET Methodi (SYNTHROID, 00:00: 00:[address] LEVOXYL) 50 00 :00 ism MORNING mcg tablet esomeprazol 2019- No Gastroesoph TAKE 1 Arjun e (NexIUM) 04-11 08-12 ageal CAPSULE Meth tegan 40 MG 00:00: 00:[address] capsule 00 :00 disease, BEFORE esophagitis BREAKFAST presence not specified atorvastati 2019- No TAKE 1 Dina gray n (LIPITOR) 4-15 05-04 TABLET Metho di 10 MG 00:00: 00:[address] tablet 00 :00 blood sugar 2017- Yes Diabetes One touch [place] diagnostic 2-28 mellitus Verio test Methodi strips 00:00: without blood st (glucose 00 complicatio sugar blood) n ([facility]) twice a strip test day strips ONETOUCH Yes Type 2 1{appli Q.5D Inject 1 Arjun VANN 8-15 diabetes cation} applicatio Methodi LANCETS 33 00:00: mellitus n into the st gauge misc 00 without skin 2 complicatio (two) n, times a unspecified day. for custodial testing insulin use status rivaroxaban Yes Take by [facility] (XARELTO) 9-19 mouth. [facility] - 15 mg Tab 03:30: Medical tablet 52 [place] bisoprolol- Yes 1{tbl} QD Take [address] hydrochloro 9-19 tablet by Richelle es - thiazide 03:29: mouth Medical (ZIAC) 51 daily. [place] 5-6.25 mg per tablet losartan Yes 100mg QD Take [address] (COZAAR) 9-19 mg by [facility] - 100 MG 03:29: mouth Medical tablet 51 daily. [place] fexofenadin Yes 180mg QD Take [address] e (RAN) 9-19 mg by [facility] - 180 MG 03:29: mouth Medical tablet 51 daily. [place] esomeprazol Yes 40mg QD Take [address] [facility] (NEXIUM) 9-19 by mouth [facility] - 40 MG 03:29: daily. Medical capsule 51 [place] ascorbic Yes 1000mg QD Take 1,[address] acid 9-19 mg by [facility] - (VITAMIN C) 03:29: mouth Medic al 1000 MG 51 daily. [place] tablet FOLIC Yes Take by [facility] ACID/MULTIV 9-19 mouth. [facility] - IT-MIN/LUTE 03:29: Medica l IN (CENTRUM 51 [place] SILVER ORAL) lutein 20 Yes Take by [facility] t mg Cap 9-19 mouth. [facility] - 03:29: Medical 51 [place] niacin 500 Yes 500mg QD Take [address] MG tablet 9-19 mg by [facility] - 03:29: mouth Medical 51 daily. [place] fenofibrate Yes 145mg QD Take [address] (TRICOR) 9-19 mg by [facility] - 145 MG 03:29: mouth Medical tablet 51 daily. [place] cyclobenzap Yes 5mg Take [address] rine 04-02 by mouth 3 [facility] - (FLEXERIL) 03:29: (three) Medi francheska 5 MG tablet 51 times Center daily as needed for Muscle spasms. {42 Yes 1 tab, PO, Memoria (rivaroxaba - BID-Meals, l n 15 MG 22:26: Take 15 mg Herm antionette Oral Tablet 00 tablets [Xarelto]) twice / 9 daily with (rivaroxaba food for n 20 MG 21 days. Oral Tablet Beginning [Xarelto]) day } Pack 22,take [Xarelto one 20 mg Kit] tablet daily with food for the remainder of therapy., X 30 day, # 1 pkt, 0 Refill(s) Xarelto No Notes: Memoria 03-31 (Same as: l 22:23: Xarelto) Administer with food Sodium No 1,000 mL, Memori a Chloride 03-31 1,000 l 0.154 20:28: ml/hr, [place] MEQ/ML 00 Infuse Injectable Over: 1 Solution hr, Route: IV, 1,000, Drug form: INJ, ONCE, Priority: STAT, Dosing Weight 103.636 kg, Start date: 03/31/16 15:28:00 CDT, Duration: 1 doses or times, Stop date: 03/31/16 15:28:00 CDT Morphine No 4 mg, Memoria 03-31 Route: l 19:17: IVP, ONCE, Dosing Weight 103.636, kg, Priority: STAT, Start date: 03/31/16 14:17:00 CDT, Stop date: 03/31/16 14:17:00 CDT Ondansetron No 4 mg, Memor ia 03-31 Route: l 19:17: IVP, ONCE, Dosing Weight 103.636, kg, Priority: STAT, Start date: 03/31/16 14:17:00 CDT, Stop date: 03/31/16 14:17:00 CDT Saline No Notes: Memoria Flush 0.9% 03-31 preservati l 19:17: ve free. FOLIC 2000-0 Yes Díaz ACID/MULTIV 3-01 Methodi IT-MIN/LUTE 00:00: st IN (CENTRUM 00 SILVER ORAL) Immunizations Ordered Immunization Filled Immunization Date Status Commen ts Source Name Name Tdap 2019-09-07 Completed [place] 00:00:00 Religion Influenza Trivalent 2019-05-07 Completed [place] 00:00:00 Religion FLUBLOK QUAD PF 2018-05-09 Completed [place] 00:00:00 Religion Pneumococcal 2016-08-03 Completed [place] Conjugate 13-Valent 00:00:00 Metho dist FLUZONE QUAD PF 2016-04-05 Completed [place] 00:00:00 Religion Vital Signs Vital Name Observation Time Observation Value Comments Source Systolic blood 2020-03-28 09:05:00 140 mm[Hg] [place] Religion pressure Diastolic blood 2020-03-28 09:05:00 80 mm[Hg] [place] Religion pressure Heart rate 2020-03-28 08:47:00 59 /min [place] Religion Body temperature 2020-03-28 08:47:00 37 Elissa [place] Religion Body height 2020-03-28 08:47:00 180.3 cm [place] Religion Body weight 2020-03-28 08:47:00 85.73 kg [place] Religion BMI 2020-03-28 08:47:00 26.36 kg/m2 [place] Religion Oxygen saturation in 2020-03-28 08:47:00 100 /min [place] Religion Arterial blood by Pulse oximetry Respiratory rate 2020-01-06 11:09:00 18 /min [place] Religion Temperature Oral (F) 2016-03-31 22:30:00 97.8 F [facility] Respitory Rate 2016-03-31 22:30:00 Memori al [place] Heart Rate 2016-03-31 22:30:00 [facility] Venancio Systolic (mm Hg) 2016-03-31 22:30:00 [place] rial Venancio Diastolic (mm Hg) 2016-03-31 22:30:00 Mem orial Venancio Heart Rate 2016-03-31 21:30:00 [facility] Venancio Systolic (mm Hg) 2016-03-31 21:30:00 [place] rial [place] Diastolic (mm Hg) 2016-03-31 21:30:00 Mem orial [place] Respitory Rate 2016-03-31 21:30:00 Memori al [place] Heart Rate 2016-03-31 21:00:00 James Craft Systolic (mm Hg) 2016-03-31 21:00:00 [place] Craft Diastolic (mm Hg) 2016-03-31 21:00:00 Kim Craft Respitory Rate 2016-03-31 21:00:00 Maurice Zhao Weight 2016-03-31 18:36:00 James Craft Height 2016-03-31 18:36:00 180.34 cm [facility] [place] BMI Calculated 2016-03-31 18:36:00 Maurice Zhao Temperature Oral (F) 2016-03-31 18:36:00 97.3 F James Craft Procedures Procedure Date / Time Performed Performing Clinician Sour e CBC WITH PLATELET AND 2020-05-30 11:54:00 Carmen Kincaid on Religion DIFFERENTIAL HEMOGLOBIN A1C 2020-05-30 11:52:00 Carmen Kincaid Met hodist URINALYSIS, COMPLETE, 2020-05-30 11:51:00 Carmen Kincaid on Religion WITH REFLEX TO CULTURE COMPREHENSIVE METABOLIC 2020-05-30 11:48:00 Carmen Kincaid Religion PANEL LIPID PANEL 2020-05-30 11:45:00 Carmen Kincaid Met hodist THYROID STIMULATING 2020-05-30 11:42:00 Carmen Kincaid Religion HORMONE [id number] 2020-05-23 00:00:00 ProviderLiya Religion US ABDOMEN COMPLETE 2020-02-08 10:37:36 Ray Sanford on Religion IP CONSULT TO ONCOLOGY 2020-02-04 00:00:00 Provider, Liya Moore CBC WITH PLATELET AND 2019-12-28 07:28:00 Carmen Kincaid on Religion DIFFERENTIAL COMPREHENSIVE METABOLIC 2019-12-28 07:26:00 Carmen Kincaid Religion PANEL HEMOGLOBIN A1C 2019-12-28 07:24:00 Carmen Kincaid Met hodist LIPID PANEL 2019-12-28 07:22:00 Carmen Kincaid Met hodist URINALYSIS, COMPLETE, 2019-12-28 07:20:00 Carmen Kincaid on Religion WITH REFLEX TO CULTURE THYROID STIMULATING 2019-12-28 07:16:00 Carmen Kincaid Religion HORMONE PROSTATE SPECIFIC ANTIGEN 2019-12-28 07:14:00 Carmen Kincaid Plan of Care Planned Activity Planned Date Details Comments Source Future Scheduled 2026-06-20 COLONOSCOPY SCREENING [place] Religion Test 00:00:00 [code = COLONOSCOPY SCREENING] Future Scheduled 2021-01-05 DIABETIC FOOT EXAM [place] Religion Test 00:00:00 [code = DIABETIC FOOT EXAM] Future Scheduled 2020-07-23 DIABETES: RETINAL EYE [place] Religion Test 00:00:00 EXAM [code = DIABETES: RETINAL EYE EXAM] Future Scheduled 2020-06-03 SHINGLES VACCINES [place] Religion Test 00:00:00 (#2) [code = SHINGLES VACCINES (#2)] Encounters Start End Encounter Admission Attending Care Care Encounter Source Date/Time Date/Time Type Type Clinicians Facility Department ID 2020-05-30 2020-05-30 Outpatient PALASI, [facility] [id number] [place] 00:00:00 00:00:00 CARMEN [address] 2020-03-28 2020-03-28 Outpatient PALASI, [facility] [id number] [place] 00:00:00 00:00:00 CARMEN [address] 2020-03-02 2020-03-02 Outpatient ESTRADA, [facility] [id number] [place] 00:00:00 00:00:00 OBIE [address] 2020-02-08 2020-02-08 Outpatient SALAM, AMIR [facility] [id number] [place] 00:00:00 00:00:[address] 2020-01-22 2020-01-22 Outpatient PALASI, [facility] [id number] [place] 00:00:00 00:00:00 CARMEN [address] 2020-01-06 2020-01-06 Outpatient PALASI, [facility] [id number] [place] 00:00:00 00:00:00 CARMEN [address] 2019-11-27 2019-11-27 Outpatient PALASI, [facility] [id number] [place] 00:00:00 00:00:00 CARMEN [address] 2019-09-10 2019-09-10 Outpatient PALASI, [facility] [id number] 480 [place] 00:00:00 00:00:00 CARMEN [address] [facility] 2019-08-28 2019-08-28 Emergency Farhana Dickinson [place] [id number] 09:48:14 13:12:00 Noemi Gamino [id number] [place] [id number] [place] [id number] 2019-03-23 2019-03-23 Outpatient ISRAEL Swanson [facility] [id number] 14:49:00 23:59:00 Jodi Stevenson 00 2019-02-23 2019-02-23 Office YAHIR Sharp [id number] 13:20:24 13:35:24 Visit Blake AMBULATOR [id number] Y [id number] 2016-06-08 2016-07-07 Outpatient Irr, 2.16.840. 2.16.840.1. 3 [id number] 08:00:00 23:59:00 Landon G [id number] 5.57 2016-03-26 2016-04-24 Outpatient Irr, 2.16.840. [id number]. 3 [id number] 08:00:00 23:59:00 Landon G [id number] 5.57 2016-03-31 2016-03-31 Outpatient DAVID Johnson [facility] [id number] 13:27:00 18:02:00 [place] [address] Mari Results Test Description Test Time Test Comments Results Result Comments Source Comprehensive metabolic panel 2020-05-31 04:03:00 Test Item Value Reference Range Interpretation Comme nts Glucose (test code = 113 mg/dL 65-99 H Fasting 2345-7) reference inter helio For someone without known diabetes, a glu cose valuebetween 10 0 and 125 mg/dL is consis tent withprediabetes and should be confi rmed with afollow-up test . BUN (test code = 15 mg/dL 02-05 3094-0) Creatinine (test code = 1.13 mg/dL 0.7-1.33 For patients >49 years of 2160-0) age, the refere nce limitfor Creati nine is approximately 1 3% higher for peopleident ified as -Alysia n. EGFR Non-Afr. Cymraes 74 > OR = 60 (test code = 2775) mL/min/1.73m2 EGFR 86 > OR = 60 (test code = 69495-6) mL/min/1.73m2 BUN/creatinine ratio NOT APPLICABLE 6- (calc) (test code = 3097-3) Sodium (test code = 142 mmol/L 830-419 6819-2) Potassium (test code = 4.9 mmol/L 3.5-5.3 2823-3) Chloride (test code = 105 mmol/L 98-110 2074-0) CO2 (test code = 28 mmol/L 20-32 2027-9) Calcium (test code = 10.7 mg/dL 8.6-10.3 H 51958-1) Protein (test code = 7.1 g/dL 6.1-8.1 2885-2) Albumin, S (test code = 4.4 g/dL 3.6-5.1 1751-7) Globulin, total (test 2.7 1.9- 3.7 g/dL code = 37635-5) (calc) Albumin/globulin ratio 1.6 1.0- 2.5 (test code = 1759-0) (calc) Total bilirubin (test 0.4 mg/dL 0.2-1.2 code = 1974-2) Alkaline phosphatase 45 U/L 35-144 (test code = 6768-6) AST (test code = 38 U/L 10-35 H 1920-8) ALT (test code = 29 U/L 9-46 1742-6) YUMIKO (test code = YUMIKO) FASTING:YESFASTING: YES RAC (test code = RAC) Performing Organization Information: Site ID: [id number] Name: [facility] Address: [address] [place] [id number] Director: Ruben Tobin Lab Interpretation Abnormal (test code = 58367-7) [place] [facility] [id number] 04:03:00 Test Item Value Reference Interpretation Comments Range Cholesterol, total 190 mg/dL <200 (test code = 2093-3) HDL cholesterol 59 mg/dL > OR = 40 (test code = 2085-9) Triglycerides (test 486 mg/dL <150 H If a no n-fasting code = 2571-8) specimen was collected, considerrepeat triglyceride testing on a fasting specime nif clinically indicated. Daniel yan al. J. of Cl in. Lipidol. 2015;9:129-169. LDL cholesterol mg/dL (calc) LDL cholest darin calculated (test not calcula laury. code = 13323-1) Triglyceride levelsgreater t gonsalez 400 mg/dL invalidate calculated LDL results. Refere nce range: <100 Desirable range <100 mg/dL for primary prevent ion; <70 mg/dL for patients with C HD or diabetic patients with > or = 2 CHD risk factors. LDL-C is now calculated using the Gus-Burnett calculation, wh ich is a validated novel method providing jason r accuracy than t he Friedewald equa tion in the estimati on of LDL-C. Leida n SS et al. AMANDO. 2013;310(19): 8777-6041 (http://educati on.Team [employer] .BlogRadio /faq/[email or web address]) Cholesterol/HDL 3.2 <5.0 (calc) ratio (test code = 9830-1) Non-HDL cholesterol 131 <130 mg/dL H For emily ents with (test code = (calc) diabetes plus 1 29050-7) major ASCVD ris k factor, treatin g to a non-HDL-C goa l of <100 mg/dL (LDL -C of <70 mg/dL) i s considered a therapeutic opt ion. YUMIKO (test code = FASTING:YESFASTIN YUMIKO) G: YES RAC (test code = Performing RAC) Organization Information: Site ID: [id number] [facility] Address: [address] [place] [phone] Director: Ruben Tobin Lab Interpretation Abnormal (test code = 19392-6) [place] Methodist[facility] stimulating [id number] 00:19:00 Test Item Value Reference Range Interpretation Comments TSH (test code = 0.73 0.40- 4.50 mIU/L 3016-3) YUMIKO (test code = FASTING:NOFASTING: NO YUMIKO) RAC (test code = Performing Organization RAC) Information: Site ID: [id number] Name: [facility] Address: [address] [place] [phone] Director: Ruben Tobin [place] MethodistURINALYSIS, COMPLETE, WITH REFLEX TO [id number] 00:14:00 Test Item Value Reference Range Interpretation Comments Color, UA (test code DARK YELLOW YELLOW = 5778-6) Appearance (test code CLEAR CLEAR = 5767-9) Specific gravity, 1.014 1.001-1.035 urine (test code = 5811-5) pH, urine (test code < OR = 5.0 5.0-8.0 = 5803-2) Glucose, urine (test NEGATIVE NEGATIVE code = 08318-4) Bilirubin, UA (test NEGATIVE NEGATIVE code = 5770-3) Ketones, UA (test TRACE NEGATIVE A code = 2514-8) Occult blood, urine NEGATIVE NEGATIVE (test code = 5794-3) Protein, UA (test NEGATIVE NEGATIVE code = 27755-1) Nitrite, UA (test NEGATIVE NEGATIVE code = 5802-4) Leukocyte esterase, NEGATIVE NEGATIVE UA (test code = 5799-2) WBC, UA (test code = NONE SEEN < OR = 5 /HPF 5821-4) RBC, UA (test code = NONE SEEN < OR = 2 /HPF 23026-8) Squamous epithelial NONE SEEN < OR = 5 /HPF cells, UA (test code = 88710-6) Bacteria, UA (test NONE SEEN NONE SEEN /HPF code = 5769-5) Hyaline casts, UA NONE SEEN NONE SEEN /LPF (test code = 5796-8) Reflex (test code = NO CULTU RE 630-4) INDICATED YUMIKO (test code = YUMIKO) FASTING:YESFASTING: YES RAC (test code = RAC) Performing Organization Information: Site ID: RGA Name: [facility] Address: [address] [place] [id number] Director: Ruben Tobin Lab Interpretation Abnormal (test code = 74132-7) [facility] and trqgckqrjeoj7425-03-77 23:07:00 Test Item Value Reference Range Interpretation Comments WBC (test code = 7.4 3.8- 10.8 6690-2) Thousand/uL RBC (test code = 789-8) 3.22 4.20- 5.80 L Million/uL HGB (test code = 718-7) 11.4 g/dL 13.2-17.1 L HCT (test code = 33.0 % 38.5-50 L 4544-3) MCV (test code = 787-2) 102.5 fL 80-100 H MCH (test code = 785-6) 35.4 pg 27-33 H MCHC (test code = 34.5 g/dL 32-36 786-4) RDW (test code = 788-0) 12.4 % 11-15 Platelet count (test 261 140- 400 code = 777-3) Thousand/uL MPV (test code = 776-5) 10.1 fL 7.5-12.5 Neutrophils, absolute 3818 1,500 - 7,800 (test code = 751-8) cells/uL Lymphocytes, absolute 1872 850- 3,900 (test code = 731-0) cells/uL Monocytes, absolute 1036 200- 950 cells/uL H (test code = 742-7) Eosinophils, absolute 585 15- 500 cells/uL H (test code = 711-2) Basophils, absolute 89 0- 200 cells/uL (test code = 704-7) Neutrophils (test code 51.6 % = 770-8) Lymphocytes (test code 25.3 % = 736-9) Monocytes (test code = 14.0 % 5905-5) Eosinophils (test code 7.9 % = 713-8) Basophils + RC (test 1.2 % code = 706-2) YUMIKO (test code = YUMIKO) FASTING:YESFASTING: YES RAC (test code = RAC) Performing Organization Information: Site ID: RGA Name: [facility] Address: [address] [place] [id number] Director: Ruben Tobin Lab Interpretation Abnormal (test code = 25187-9) [place] specific [id number] 00:24:00 Test Item Value Reference Range Interpretation Comments PSA (test 0.5 ng/mL < OR = 4.0 The total PSA v alue code = from this assay system 2857-1) is standardized against the WHO standar d. The test result alison l be approximately 2 0% lower when compared t o the equimolar-stand ardized total PSA (qcue [place]). Sunny rison of serial PSA resu lts should be inter preted with this fact in mind. This test was p erformed using the [employer] ns chemiluminescen t method. Values obtained from different assay methods cannot be usedinterchange ably. PSA levels, reg ardless ofvalue, should not be interpreted as absoluteevidenc e of the presence or abs ence of disease. YUMIKO (test FASTING:YESFASTING: code = YUMIKO) YES RAC (test Performing code = RAC) Organization Information: Site ID: RGA Name: [facility] Address: [address] [place] [phone] Director: Ruben D[facility]az [facility] AND [id number] 21:26:00None Seen (03/31/16 4:26 PM) [facility] [id number] 21:26:00Performed (03/31/16 4:26 PM) [facility] [id number] 21:26:00None Seen (03/31/16 4:26 PM) [facility] [id number] 21:26:00None Seen (03/31/16 4:26 PM) [facility] [id number] 21:26:00Yellow *NA*(03/31/16 4:26 PM) [facility] [id number] 21:26:00Clear (03/31/16 4:26 PM) [facility] [id number] 21:26:000.2[facility] [id number] 21:26:00Negative *NA*(03/31/16 4:26 PM)[facility] [id number] 21:26:00Negative (03/31/16 4:26 PM)[facility] [id number] 21:26:00Negative (03/31/16 4:26 PM)[facility] [id number] 21:26:00Negative (03/31/16 4:26 PM)[facility] [id number] 21:26:00Negative (03/31/16 4:26 PM)[facility] [id number] 21:26:00<=1.005 *NA*(03/31/16 4:26 PM)[facility] [id number] 21:26:00 Test Item Value Reference Range Interpretation Comments UA pH (test code = UA pH) 7.0 1 5.0-8.0 [facility] GMDZLVS5619-59-20 19:26:74465Lxzrrhod HermannCARDIAC BPVMGOG7556-82-38 19:26:001.5[facility] LDQYQFL9844-75-70 19:26:00 <0.02[facility] LQWWRXV0538-11-12 19:26:001.0[facility] CARDIAC [id number] 19:26:0075[facility]annCHEM YBXJV4928-14-39 19:26:0049[facility]annCHEM XOCKY4667-96-83 19:26:001.0[facility]ann[facility] RTLEI7490-58-07 19:26:003.7[facility]ann[facility] XGOWX3642-68-08 19:26:0012 [facility] DLMLH0376-14-59 19:26:0018.2[facility]annCHEM PANEL 2016-03-31 19:26:0029[facility]annCHEM IINPX1065-54-67 19:26:007.5[facility]ann[facility] RNFIF5138-98-69 19:26:000.5[facility]ann[facility] SHYMJ8483-14-71 19:26:009.5[facility]annCHE[facility] OHYSD2544-85-15 19:26:0024[facility]annCHE[facility] ATDHW3122-17-68 19:26:0097[facility]annCHEM LGMEA5158-87-06 19:26:004.2 [facility] XAEWC1299-16-01 19:26:09224Dstxgwlj HermannCHEM PANEL 2016-03-31 19:26:001.17[facility]annCHEM [id number] 19:26:0014[facility]annCHEM [id number] 19:26:92142Nfxouhoo HermannCHEM AWNEH8857-27-20 19:26:0055[facility]annCHEM VPRMT2186-00-47 19:26:003.8[facility]annCHEM EQWUB0024-72-40 19:26:0073[facility] MmcarqiORZNGHRLHD4803-67-29 19:26:0035.1 [facility] XopsalaSYWSTKWFJH6642-48-05 19:26:0012.8[facility] HermannHEMATOLOGY 2016-03-31 19:26:009.6[facility] XfvajlyFZCYIKJJAP9993-99-96 19:26:60378Jfmosxfo BpldqmqZMMPOSDCOS7583-60-54 19:26:00 Test Item Value Reference Range Interpretation Comments MCH (test code = MCH) 33.4 pg 27.0-31.0 [facility] YwrmmrbGLKOMRHRGK8191-56-97 19:26:0039.7[facility]annHEMATOLOGY 2016-03-31 19:26:0095.1[facility] ArnljvhGMHNYYLDXT7346-90-53 19:26:009.2[facility] DycptdjAHVRFPVHKG9986-40-94 19:26:004.17[facility] JougherOLJIXKJIQN1322-43-31 19:26:0013.9[facility] GcfguwqSCLXCBNUVV0372-61-71 19:26:000.82[facility] BQWXMHTHVL3560-43-75 19:26:00 Test Item Value Reference Range Interpretation Comments PROTIME (test code = PROTIME) 11.6 s 12.0-14.7 [facility] MiahcdwTWCVZIPPPR1904-99-98 19:26:00 Test Item Value Reference Range Interpretation Comments aPTT (test code = aPTT) 23.0 s 22.9-35.8 [facility] ErxdzlvRWMIDECBUY5653-11-98 19:26:006.3[facility] HermannHEMATOLOGY 2016-03-31 19:26:000.5[facility] AkhvglcNUMKSSYJYS3078-48-64 19:26:0028.5[facility] KnxlamqQRDDDEJWEQ9646-95-70 19:26:0054.8[facility] XrxmcyqHPFSUQQWVJ8447-77-29 19:26:009.9[facility] IieslkvXQGZMMGNBJ6564-24-83 19:26:002.6[facility] YZOYNFZISG7712-52-17 19:26:005.1[facility] OcdtvuxZVXGAGLTNN5566-34-30 19:26:000.9 [facility] VvpmjyaXUSRFCRBPO8128-07-28 19:26:000.6[facility] [place]
[2020-06-04] MEDS ORDERED: ACETAMINOPHEN 500 MG TAB ONE (13:42)
[2020-06-04] MEDS ORDERED: ONDANSETRON 4 MG (ODT) TAB ONE (13:43)
--- NOTE | 2020-06-04 15:00 | ER ---
Nurse's Notes [facility] Name: Mack Charles Age: 54 yrs Sex: Male : 1965 Arrival Date: 06/04/2020 Time: 11:53 Bed 15 Private MD: Diagnosis: Headache;Nausea Presentation: 06/04 12:02 Chief complaint: Patient states: Fever, SHAH, body aches, nausea sudden onset at 0930. ll1 Had 2nd shingles shot vaccine yesterday L arm. Fever 100.2 at home. Coronavirus screen: Client denies travel out of the [place] in the last 14 days. chills, fatigue, headache, muscle pain, nausea, Client presents with at least one sign or symptom that may indicate coronavirus-19. Standard/surgical mask placed on the client. Ebola Screen: Patient denies travel to an Ebola-affected area in the 21 days before illness onset. Initial Sepsis Screen: Does the patient meet any 2 criteria? HR > 90 bpm. No. Patient's initial sepsis screen is negative. Does the patient have a suspected source of infection? No. Patient's initial sepsis screen is negative. Risk Assessment: Do you want to hurt yourself or someone else? Patient reports no desire to harm self or others. Onset of symptoms was June 04, 2020. 12:02 Method Of Arrival: Ambulatory ll1 12:02 Acuity: [place] 3 ll1 Historical: - Allergies: 12:04 AYANNA INHIBITORS (Hives); ll1 12:04 Bees (Anaphylaxis); ll1 12:04 Trazodone (Hives); ll1 12:04 amlodipine; ll1 - PMHx: 12:05 Hypothyroidism; acid reflux; Hyperlipidemia; Diabetes - IDDM; Hypertension; ll1 - PSHx: 12:05 Hernia repair; left leg; eye surgery; ll1 - Immunization history:: Flu vaccine is up to date. - Social history:: Smoking status: Patient/guardian denies using tobacco, the patient reports quitting approximately 7 years ago. Screenin:30 Abuse screen: Denies threats or abuse. Nutritional screening: No deficits noted. em Tuberculosis screening: No symptoms or risk factors identified. Fall Risk None identified. Assessment: 13:30 General: Appears in no apparent distress. comfortable, Behavior is calm, cooperative, em appropriate for age, Reports fever for 0-12 hours. Pain: Complains of pain in "body aches" Pain currently is 8 out of 10 on a pain scale. Neuro: Level of Consciousness is awake, alert, obeys commands, Oriented to person, place, time, situation, Appropriate for age Reports headache. Cardiovascular: Capillary refill < 3 seconds Patient's skin is warm and dry. Respiratory: Airway is patent Respiratory effort is even, unlabored, Respiratory pattern is regular, symmetrical, Denies cough. GI: Reports nausea, Patient currently denies vomiting. EENT: Reports mild sore throat. Derm: Skin is intact, is healthy with good turgor, Skin is pink, warm \\T\\ dry. Musculoskeletal: Capillary refill < 3 seconds, Range of motion: intact in all extremities. 14:20 Reassessment: Patient appears in no apparent distress at this time. Patient and/or em family updated on plan of care and expected duration. Pain level reassessed. Patient is alert, oriented x 3, equal unlabored respirations, skin warm/dry/pink. Patient states feeling better. 15:17 Reassessment: Patient appears in no apparent distress at this time. Patient and/or em family updated on plan of care and expected duration. Pain level reassessed. Patient is alert, oriented x 3, equal unlabored respirations, skin warm/dry/pink. Vital Signs: 12:02 BP 125 / 88; Pulse 121; Resp 17; Temp 99.9; Pulse Ox 98% ; Weight 81.65 kg; Height 5 ll1 ft. 11 in. (180.34 cm); Pain 8/10; 14:21 BP 120 / 82; Pulse 89; Resp 18; Temp 98.9(O); Pulse Ox 96% on R/A; em 12:02 Body Mass Index 25.10 (81.65 kg, 180.34 cm) ll1 ED Course: 11:53 Patient arrived in ED. mr 12:04 Triage completed. ll1 12:06 Arm band placed on. ll1 12:57 Ellis Zepeda PA is PHCP. cp 12:57 Luis Alberto Mcclure MD is Attending Physician. cp 13:21 Reece Ansari, RN is Primary Nurse. em 13:30 Patient has correct armband on for positive identification. Call light in reach. Adult em w/ patient. Pulse ox on. NIBP on. 13:37 Strep Sent. sv 13:37 Influenza Screen (a \\T\\ B) Sent. sv 13:37 COVID-19 Sent. sv 15:16 No provider procedures requiring assistance completed. Patient did not have IV access em during this emergency room visit. Administered Medications: 13:33 Drug: Zofran (Ondansetron) 4 mg Route: PO; em 14:00 Follow up: Response: No adverse reaction; Marked relief of symptoms; Nausea is decreasedem 14:09 Drug: Tylenol 1000 mg Route: PO; em 14:55 Follow up: Response: No adverse reaction; Marked relief of symptoms; Temperature is em decreased Outcome: 14:59 Discharge ordered by MD. cp 15:16 Discharged to home ambulatory. em 15:16 Condition: improved 15:16 Discharge instructions given to patient, Instructed on discharge instructions, follow up and referral plans. medication usage, Demonstrated understanding of instructions, follow-up care, medications, Prescriptions given X 2. 15:17 Patient left the ED. em Addendum: 06/07/2020 16:48 Addendum: COVID-19 Result: Negative result given to RN to notify pt. Notified pt of i w negative COVID 19 swab results. Pt advised that even with a negative test result they should remain in isolation until symptom free for 3 days without medication. Pt also advised to return to the ED for worsening symptoms. Signatures: Elena Varner, RN JENNIFER Alyson OrozcoReece RN RN em Williams, Irene, RN RN iw Page, Corey, PA PA cp Lewis, Lynsay RN RN ll1 Corrections: (The following items were deleted from the chart) 06/04 14:21 13:30 Neuro: Level of Consciousness is awake, alert, obeys commands, Oriented to em person, place, time, situation, Appropriate for age em
--- NOTE | 2020-06-04 15:00 | EDPHYS ---
Physician Documentation [facility] Name: Mack Charles Age: 54 yrs Sex: Male : 1965 Arrival Date: 06/04/2020 Time: 11:53 Bed 15 Private MD: ED Physician Luis Alberto Mcclure HPI: 06/04 13:20 This 54 yrs old Male presents to ER via Ambulatory with complaints of Fever, cp Chills,body aches, Headache. 13:20 The patient reports fever, that was measured at 100.2 degrees Fahrenheit. cp 13:20 Onset: The symptoms/episode began/occurred this morning. Associated signs and symptoms: cp Pertinent positives: chills, headache, body aches, Pertinent negatives: cough, diarrhea, sore throat, vomiting. Severity of symptoms: in the emergency department the symptoms are unchanged despite home interventions. Historical: - Allergies: 12:04 AYANNA INHIBITORS (Hives); ll1 12:04 Bees (Anaphylaxis); ll1 12:04 Trazodone (Hives); ll1 12:04 amlodipine; ll1 - PMHx: 12:05 Hypothyroidism; acid reflux; Hyperlipidemia; Diabetes - IDDM; Hypertension; ll1 - PSHx: 12:05 Hernia repair; left leg; eye surgery; ll1 - Immunization history:: Flu vaccine is up to date. - Social history:: Smoking status: Patient/guardian denies using tobacco, the patient reports quitting approximately 7 years ago. ROS: 13:25 Constitutional: Positive for body aches, chills, Negative for fever, poor PO intake. cp 13:25 Eyes: Negative for injury, pain, redness, and discharge. cp 13:25 ENT: Negative for ear pain, sore throat, difficulty swallowing, difficulty handling secretions. 13:25 Cardiovascular: Negative for chest pain, edema, palpitations. 13:25 Respiratory: Negative for cough, shortness of breath, wheezing. 13:25 Abdomen/GI: Negative for abdominal pain, nausea, vomiting, and diarrhea. 13:25 Skin: Negative for rash. 13:25 Neuro: Positive for headache, Negative for altered mental status, weakness. 13:25 All other systems are negative. Exam: 13:30 Constitutional: The patient appears in no acute distress, alert, awake, cp non-diaphoretic, non-toxic, well developed, well nourished. 13:30 Head/Face: Normocephalic, atraumatic. Vital Signs: 12:02 BP 125 / 88; Pulse 121; Resp 17; Temp 99.9; Pulse Ox 98% ; Weight 81.65 kg; Height 5 ll1 ft. 11 in. (180.34 cm); Pain 8/10; 14:21 BP 120 / 82; Pulse 89; Resp 18; Temp 98.9(O); Pulse Ox 96% on R/A; em 12:02 Body Mass Index 25.10 (81.65 kg, 180.34 cm) ll1 MDM: 13:07 Patient medically screened. cp 13:30 Differential diagnosis: viral Infection, bacterial infection, bronchitis, pneumonia cp meningitis, influenza, strep throat, COVID-19. 14:58 Data reviewed: vital signs, nurses notes, lab test result(s), and as a result, I will cp discharge patient. 14:58 Counseling: I had a detailed discussion with the patient and/or guardian regarding: the cp historical points, exam findings, and any diagnostic results supporting the discharge/admit diagnosis, lab results, Low suspicion for meningitis. Will discharge to home for continued monitoring. 06/04 13:12 Order name: COVID-19 06/04 13:12 Order name: Influenza Screen (a \T\ B) 06/04 13:12 Order name: Strep 06/04 13:13 Order name: [facility] 06/04 13:13 Order name: Influenza Screen (A ; Complete Time: 14:55 [facility] 06/04 14:55 Interpretation: Reviewed. 06/04 13:13 Order name: Group A Streptococcus Rapid Sc; Complete Time: 14:31 [facility] 06/04 14:31 Interpretation: Reviewed. 06/04 13:50 Order name: Vital Signs: please update to include temp; Complete Time: 14:54 06/04 14:24 Order name: Throat Culture EDNY Administered Medications: 13:33 Drug: Zofran (Ondansetron) 4 mg Route: PO; em 14:00 Follow up: Response: No adverse reaction; Marked relief of symptoms; Nausea is decreasedem 14:09 Drug: Tylenol 1000 mg Route: PO; em 14:55 Follow up: Response: No adverse reaction; Marked relief of symptoms; Temperature is em decreased Disposition: 06/04/20 14:59 Discharged to Home. Impression: Headache, Nausea. - Condition is Stable. - Discharge Instructions: General Headache Without Cause, Nausea, Adult. - Prescriptions for Ibuprofen 800 mg Oral Tablet - take 1 tablet by ORAL route every 8 hours As needed take with food; 30 tablet. Zofran 4 mg Oral Tablet - take 1 tablet by ORAL route every 12 hours As needed; 20 tablet. - Medication Reconciliation Form, Thank You Letter, Antibiotic Education, Prescription Opioid Use form. - Follow up: Private Physician; When: 1 - 2 days; Reason: Worsening of condition. - Problem is new. - Symptoms have improved. Addendum: 06/07/2020 09:30 Co-signature as Attending Physician, Luis Alberto Mcclure MD I agree with the assessment and k dr plan of care. Signatures: Dispatcher [employer] EDNY Luis Alberto Mcclure MD MD [facility] Reece Ansari RN RN em Ellis Zepeda PA PA cp Lewis, Lynsay RN RN ll1 Corrections: (The following items were deleted from the chart) 06/04 15:17 14:59 06/04/2020 14:59 Discharged to Home. Impression: Headache; Nausea. Condition is em Stable. Forms are Medication Reconciliation Form, Thank You Letter, Antibiotic Education, Prescription Opioid Use. Follow up: Private Physician; When: 1 - 2 days; Reason: Worsening of condition. Problem is new. Symptoms have improved. cp
[2020-06-04 20:25] VITALS: BP 120/82; TEMP 98.9; O2SAT 96
== END 2020-06-04 15:17 | disposition home or self-care (01) ==
LOC: ER 11:50
DX: R51.9 Headache, unspecified (principal); Z20.828 Contact with and (suspected) exposure to other viral communicable diseases; I10 Essential (primary) hypertension; Z88.5 Allergy status to narcotic agent; Z88.8 Allergy status to other drugs, medicaments and biological substances; Z91.030 Bee allergy status
CPT/HCPCS: 87070; 87081; 87804 ×2; 99284; U0002

== ENCOUNTER 2021-08-02 12:49 | Emergency (ER) | payer BC ==
--- OUTSIDE RECORDS SUMMARY | 2021-08-02 12:54 | XMS REPORT | Continuity of Care Document ---
:1965 Author Organization [facility] t Address [address] [place] [address] Care Team Providers Name Role Phone ISAURA ANDRES Primary Care Physician Unavailable THEO Attending Clinician Unavailable FEI Attending Clinician Unavailable MCKENNA Attending Clinician Unavailable MAUDE Attending Clinician Unavailable ISRAEL Attending Clinician Unavailable JAMISON Attending Clinician Unavailable MD JAMISON Attending Clinician Unavailable CORI Attending Clinician Unavailable DO MARIPOSA PERSADU Attending Clinician Unavailable CHERYL LARES Attending Clinician Unavailable OSCAR Attending Clinician Unavailable PARISH Attending Clinician Unavailable NATALIE Attending Clinician Unavailable Cheryl Zuluaga Attending Clinician Lila CABRERA Attending Clinician MAUDE Admitting Clinician Unavailable IVAN Admitting Clinician Unavailable MD Patrick LOVE Admitting Clinician Unavailable CORI Admitting Clinician Unavailable DO MARIPOSA PERSAUD Admitting Clinician Unavailable CHERYL LARES Admitting Clinician Unavailable Payers Payer Name Policy Type Policy Number Effective Date Expiration Date S julian [employer] [place] - [id number] 2017 00:00:00 OUT OF STATE Problems Condition Condition Condition Status Onset Resolution Last Treating Co mments Source Name Details Category Date Date Treatment Clinician Date H55.00 - Diagnosis Active 2019-03-23 M emoria UNSPECIFIE 03-11 14:58:00 l D .00 - :01: Lionel krishna NYSTAGMUS UNSPECIFIE 00 D NYSTAGMUS Active 03/11/2019 KEVIND [place] SOB Diagnosis Active 2016-03-31 Mem oria 03-31 14:46:00 l SOB 00:00: Venancio 00 Active 03/31/2016 James Craft No known No known Disease [facility] r active active [place] problems problems of Medicin e Hypertensi Problem Resolve 2019-03-25 Memoria ve d 22:40:30 l disorder, Venancio systemic Hypertensi arterial ve (disorder) disorder, systemic arterial (disorder) Resolved Problem 03/25/2019 EsperanzaM Lizz CASEY [place],[facility] LUMBOSACRA Diagnosis Active 2016-04-16 Memoria L SPONDY 17:39:00 l [place] LUMBOSACRA L SPONDY Active [facility] LUMBOSACRA Diagnosis Active 2016-04-14 Memoria L SPONDY 16:38:00 l W/O [place] MYELOPATHY LUMBOSACRA L SPONDY W/O MYELOPATHY Active [facility] AQUA Diagnosis Active 2016-06-08 Mem oria LUMBOSACRA 08:08:00 l L AQUA Venancio LUMBOSACRA L Active [facility] History of Past Illness Condition Condition Condition Status Onset Resolution Last Treating Co mments Source Name Details Category Date Date Treatment Clinician Date Discharge Problem 2016-04-03 2016-04-03 Memoria Diagnosis: 03-31 01:18:28 01:18:28 l DVT of 05:00: Venancio upper Discharge 00 extremity Diagnosis: (deep vein DVT of thrombosis upper ) extremity (deep vein thrombosis ) 03/31/2016 04/03/2016 [facility] Discharge Problem 2016-04-03 2016-04-03 Memoria Diagnosis: 03-31 01:18:28 01:18:28 l Hyperglyce 05:00: Lionel n raman Discharge 00 Diagnosis: Hyperglyce raman 03/31/2016 04/03/2016 [facility] Allergies, Adverse Reactions, Alerts Allergy Allergy Status Severity Reaction(s) Onset Inactive Treating Comm ents Source Name Type Date Date Clinician AMLODIPI DRUG Active Hives Univers NE INGREDI 12-05 ity of 00:00: [address] Branch HYDROCHL DRUG Active Other-Cmnt Univ ers OROTHIAZ INGREDI 5-24 ity of ETIENNE 00:00: Medical Branch АЛЕКСАНДР Drug Active Hives Univers INHIBITO Class 2-14 ity of RS 00:00: [facility] BEE DRUG Active Swelling Univers STING / INGREDI 2-14 ity of VENOM 00:00: [facility] TRAZODON DRUG Active Hives Univers E INGREDI 2-14 ity of 00:00: [facility] Александр Propensi Active 2016-07 [place] Inhibito ty to 08-25 [place] rs adverse 00:00: of reaction 00 Medicin s to e drug Trazodon Propensi Active 2016-07 [facility] e And ty to 08-25 [place] Nefazodo adverse 00:00: of ne reaction 00 Medicin s to e drug АЛЕКСАНДР АЛЕКСАНДР Active Memoria Inhibito Inhibito l rs rs [place] traZODon traZODon Active Memori a e e l Venancio Social History Social Habit Start Date Stop Date Quantity Comments Source Sex Assigned At [facility] Smoking Status Start Date Stop Date Source Former smoker 2019-02-23 00:00:00 2019-02-23 00:00:00 [facility] Medications Ordered Filled Start Stop Current Ordering Indication Dosage Frequency Signature Comments Components Source Medication Medication Date Date Medication? Clinician (SIG) Name Name Multiple Yes Take by [facility] Vitamins-Mi 8-12 mouth. Colleg e nerals 18:32: of (MULTIVITAL 20 Medicin OR) e fexofenadin Yes 180mg Take 180 B aylor e (RAN) 8-12 mg by [place] 180 MG 18:28: mouth. of tablet 30 Medicin e losartan Yes 100mg Take 100 [facility] (COZAAR) 8-12 mg by [place] 100 MG 18:28: mouth. of tablet 30 Medicin e Lutein 20 Yes Take by [facility] MG CAPS 8-12 mouth. College 18:28: of 30 Medicin e aspirin EC Yes 81mg Take 81 mg B aylor 81 MG TBEC 8-12 by mouth Colle ge 18:28: daily. of 30 Medicin e Ascorbic Yes 1000mg Take 1,000 [place] Acid 8-12 mg by [place] (VITAMIN C) 18:28: mouth. of 1000 MG 30 Medicin TABS e esomeprazol Yes 40mg Take 40 mg [place] e (NEXIUM) 8-12 by mouth. Geovanna ege 40 MG 18:28: of capsule 30 Medicin e SYNTHROID Yes [place] 50 MCG 7-03 College tablet 00:00: of 00 Medicin e tacrolimus Yes [id number] Apply to [facility] (PROTOPIC) 3-05 [facility] 0.1 % 00:00: eyelid of ointment 00 rash once Medici n a day for e 2 weeks. atorvastati 2016-07 Yes TAKE 1 [facility] n (LIPITOR) 2-07 TABLET Colleg e 10 MG 00:00: DAILY of tablet 00 Medicin e { Yes 1 tab, PO, Memoria (rivaroxaba 9-17 BID-Meals, l n 15 MG 22:26: Take 15 mg Herm antionette Oral Tablet 00 tablets [Xarelto]) twice / 9 daily with (rivaroxaba food for n 20 MG 21 days. Oral Tablet Beginning [Xarelto]) day } Pack 22,take [Xarelto one 20 mg Kit] tablet daily with food for the remainder of therapy., X 30 day, # 1 pkt, 0 Refill(s) { Yes 1 tab, PO, Memoria (rivaroxaba 9-17 BID-Meals, l n 15 MG 22:26: Take 15 mg Herm antionette Oral Tablet 00 tablets [Xarelto]) twice / 9 daily with (rivaroxaba food for n 20 MG 21 days. Oral Tablet Beginning [Xarelto]) day } Pack 22,take [Xarelto one 20 mg Kit] tablet daily with food for the remainder of therapy., X 30 day, # 1 pkt, 0 Refill(s) { Yes 1 tab, PO, Memoria (rivaroxaba 9-17 BID-Meals, l n 15 MG 22:26: Take 15 mg Herm antionette Oral Tablet 00 tablets [Xarelto]) twice / 9 daily with (rivaroxaba food for n 20 MG 21 days. Oral Tablet Beginning [Xarelto]) day } Pack 22,take [Xarelto one 20 mg Kit] tablet daily with food for the remainder of therapy., X 30 day, # 1 pkt, 0 Refill(s) { Yes 1 tab, PO, Memoria (rivaroxaba 9-17 BID-Meals, l n 15 MG 22:26: Take 15 mg Herm antionette Oral Tablet 00 tablets [Xarelto]) twice / 9 daily with (rivaroxaba food for n 20 MG 21 days. Oral Tablet Beginning [Xarelto]) day } Pack 22,take [Xarelto one 20 mg Kit] tablet daily with food for the remainder of therapy., X 30 day, # 1 pkt, 0 Refill(s) { Yes 1 tab, PO, Memoria (rivaroxaba 9-17 BID-Meals, l n 15 MG 22:26: Take 15 mg Herm antionette Oral Tablet 00 tablets [Xarelto]) twice / 9 daily with (rivaroxaba food for n 20 MG 21 days. Oral Tablet Beginning [Xarelto]) day } Pack 22,take [Xarelto one 20 mg Kit] tablet daily with food for the remainder of therapy., X 30 day, # 1 pkt, 0 Refill(s) Xarelto No Notes: Memoria - (Same as: l 22:23: Xarelto) [place] 00 Administer with food Xarelto No Notes: Memoria 9- (Same as: l 22:23: Xarelto) [place] 00 Administer with food Xarelto No Notes: Memoria - (Same as: l 22:23: Xarelto) Ven[place]io 00 Administer with food Xarelto No Notes: Memoria 9- (Same as: l 22:23: Xarelto) Venancio 00 Administer with food Xarelto No Notes: Memoria 9- (Same as: l 22:23: Xarelto) Venancio 00 Administer with food Sodium No 1,000 mL, Memori a Chloride 03-31 1,000 l 0.154 20:28: ml/hr, Venancio MEQ/ML 00 Infuse Injectable Over: 1 Solution hr, Route: IV, 1,000, Drug form: INJ, ONCE, Priority: STAT, Dosing Weight 103.636 kg, Start date: 03/31/16 15:28:00 CDT, Duration: 1 doses or times, Stop date: 03/31/16 15:28:00 CDT Sodium 2016-0 No 1,000 mL, Memori a Chloride 9-17 1,000 l 0.154 20:28: ml/hr, Venancio MEQ/ML 00 Infuse Injectable Over: 1 Solution hr, Route: IV, 1,000, Drug form: INJ, ONCE, Priority: STAT, Dosing Weight 103.636 kg, Start date: 03/31/16 15:28:00 CDT, Duration: 1 doses or times, Stop date: 03/31/16 15:28:00 CDT Sodium 2016-0 No 1,000 mL, Memori a Chloride 9-17 1,000 l 0.154 20:28: ml/hr, [place] MEQ/ML 00 Infuse Injectable Over: 1 Solution hr, Route: IV, 1,000, Drug form: INJ, ONCE, Priority: STAT, Dosing Weight 103.636 kg, Start date: 03/31/16 15:28:00 CDT, Duration: 1 doses or times, Stop date: 03/31/16 15:28:00 CDT Sodium 2016-0 No 1,000 mL, Memori a Chloride 9-17 1,000 l 0.154 20:28: ml/hr, Venancio MEQ/ML 00 Infuse Injectable Over: 1 Solution hr, Route: IV, 1,000, Drug form: INJ, ONCE, Priority: STAT, Dosing Weight 103.636 kg, Start date: 03/31/16 15:28:00 CDT, Duration: 1 doses or times, Stop date: 03/31/16 15:28:00 CDT Sodium 2016-0 No 1,000 mL, Memori a Chloride 9-17 1,000 l 0.154 20:28: ml/hr, [place] MEQ/ML 00 Infuse Injectable Over: 1 Solution hr, Route: IV, 1,000, Drug form: INJ, ONCE, Priority: STAT, Dosing Weight 103.636 kg, Start date: 03/31/16 15:28:00 CDT, Duration: 1 doses or times, Stop date: 03/31/16 15:28:00 CDT Morphine 2016-0 No 4 mg, Memoria 9-17 Route: l 19:17: IVP, ONCE, Venancio 00 Dosing Weight 103.636, kg, Priority: STAT, Start date: 03/31/16 14:17:00 CDT, Stop date: 03/31/16 14:17:00 CDT Ondansetron 2016-0 No 4 mg, Memor ia 9-17 Route: l 19:17: IVP, ONCE, Dosing Weight 103.636, kg, Priority: STAT, Start date: 03/31/16 14:17:00 CDT, Stop date: 03/31/16 14:17:00 CDT Saline 2016-0 No Notes: Memoria Flush 0.9% 9-17 preservati l 19:17: ve free. Morphine 2016-0 No 4 mg, Memoria 9-17 Route: l 19:17: IVP, ONCE, Dosing Weight 103.636, kg, Priority: STAT, Start date: 03/31/16 14:17:00 CDT, Stop date: 03/31/16 14:17:00 CDT Ondansetron 2016-0 No 4 mg, Memor ia 9-17 Route: l 19:17: IVP, ONCE, Dosing Weight 103.636, kg, Priority: STAT, Start date: 03/31/16 14:17:00 CDT, Stop date: 03/31/16 14:17:00 CDT Saline 2016-0 No Notes: Memoria Flush 0.9% 9-17 preservati l 19:17: ve free. Morphine 2016-0 No 4 mg, Memoria 9-17 Route: l 19:17: IVP, ONCE, Dosing Weight 103.636, kg, Priority: STAT, Start date: 03/31/16 14:17:00 CDT, Stop date: 03/31/16 14:17:00 CDT Ondansetron 2016-0 No 4 mg, Memor ia 9-17 Route: l 19:17: IVP, ONCE, Dosing Weight 103.636, kg, Priority: STAT, Start date: 03/31/16 14:17:00 CDT, Stop date: 03/31/16 14:17:00 CDT Saline 2016-0 No Notes: Memoria Flush 0.9% 9-17 preservati l 19:17: ve free. Venancio Morphine 2016-0 No 4 mg, Memoria 9-17 Route: l 19:17: IVP, ONCE, Dosing Weight 103.636, kg, Priority: STAT, Start date: 03/31/16 14:17:00 CDT, Stop date: 03/31/16 14:17:00 CDT Ondansetron 2016-0 No 4 mg, Memor ia 9-17 Route: l 19:17: IVP, ONCE, Dosing Weight 103.636, kg, Priority: STAT, Start date: 03/31/16 14:17:00 CDT, Stop date: 03/31/16 14:17:00 CDT Saline 2016-0 No Notes: Memoria Flush 0.9% 9-17 preservati l 19:17: ve free. Morphine 2016-0 No 4 mg, Memoria 9-17 Route: l 19:17: IVP, ONCE, Dosing Weight 103.636, kg, Priority: STAT, Start date: 03/31/16 14:17:00 CDT, Stop date: 03/31/16 14:17:00 CDT Ondansetron 2016-0 No 4 mg, Memor ia 9-17 Route: l 19:17: IVP, ONCE, Dosing Weight 103.636, kg, Priority: STAT, Start date: 03/31/16 14:17:00 CDT, Stop date: 03/31/16 14:17:00 CDT Saline 2016-0 No Notes: Memoria Flush 0.9% 9-17 preservati l 19:17: ve free. Vital Signs Vital Name Observation Time Observation Value Comments Source Systolic blood 2019-02-23 18:26:00 111 mm[Hg] [facility] pressure Medicine Diastolic blood 2019-02-23 18:26:00 67 mm[Hg] [facility] pressure Medicine Heart rate 2019-02-23 18:26:00 95 /min [facility] Body height 2019-02-23 18:26:00 180.3 cm [facility] Body weight 2019-02-23 18:26:00 77.111 kg [facility] BMI 2019-02-23 18:26:00 23.71 kg/m2 [facility] Systolic blood 2019-02-23 18:26:00 111 mm[Hg] [facility] pressure Medicine Diastolic blood 2019-02-23 18:26:00 67 mm[Hg] [facility] pressure Medicine Heart rate 2019-02-23 18:26:00 95 /min [facility] Body height 2019-02-23 18:26:00 180.3 cm [facility] Body weight 2019-02-23 18:26:00 77.111 kg [facility] BMI 2019-02-23 18:26:00 23.71 kg/m2 [facility] Temperature Oral (F) 2016-03-31 22:30:00 97.8 F [facility] [place] Respitory Rate 2016-03-31 22:30:00 Memori al [place] Heart Rate 2016-03-31 22:30:00 [facility] [place] Systolic (mm Hg) 2016-03-31 22:30:00 Hood rial [place] Diastolic (mm Hg) 2016-03-31 22:30:00 Mem orial [place] Heart Rate 2016-03-31 21:30:00 [facility] [place] Systolic (mm Hg) 2016-03-31 21:30:00 Hood rial Ven[place] Diastolic (mm Hg) 2016-03-31 21:30:00 Mem orial [place] Respitory Rate 2016-03-31 21:30:00 Memori al [place] Heart Rate 2016-03-31 21:00:00 [facility] [place] Systolic (mm Hg) 2016-03-31 21:00:00 Hood rial [place] Diastolic (mm Hg) 2016-03-31 21:00:00 Mem orial [place] Respitory Rate 2016-03-31 21:00:00 Memori al [place] BMI Calculated 2016-03-31 18:36:00 Memori al [place] Temperature Oral (F) 2016-03-31 18:36:00 97.3 F [facility] [place] Weight 2016-03-31 18:36:00 [facility] [place] Height 2016-03-31 18:36:00 180.34 cm [facility] [place] Procedures This patient has no known procedures. Plan of Care Planned Activity Planned Date Details Comments Source Future Scheduled Test COLON CANCER SCREENING: [facility] COLONOSCOPY [code = Medicine COLON CANCER SCREENING: COLONOSCOPY] Future Scheduled Test TETANUS SHOT (ADULT) [facility] [code = TETANUS SHOT Medicin e (ADULT)] Future Scheduled Test HIV SCREENING [code = [facility] HIV SCREENING] Medicine Future Scheduled Test FLU VACCINE > 6 MONTHS [facility] [code = FLU VACCINE > 6 Medi cine MONTHS] Future Scheduled Test PREVNAR >= 65 (PCV13) [facility] [code = PREVNAR >= 65 Medici ne (PCV13)] Encounters Start End Encounter Admission Attending Care Care Encounter Source Date/Time Date/Time Type Type Clinicians Facility Department ID 2021-07-10 2021-07-10 Outpatient [facility] [id number] [place] 00:00:00 00:00:[address] 2021-06-21 2021-06-21 Outpatient APOLLO VENEGAS [facility] [id number] [place] 00:00:00 00:00:[address] 2021-04-08 2021-04-08 Emergency FEI, [facility] [id number] [place] 00:00:00 00:00:00 MIKE [address] 2021-03-29 2021-03-29 Outpatient PALASI, [facility] [id number] Ben Wheeler 00:00:00 00:00:00 CARMEN [address] 2021-03-21 2021-03-21 Outpatient DACHA, [facility] [id number] Ben Wheeler 00:00:00 00:00:00 FIDEL [address] 2021-03-01 2021-03-01 Outpatient DACHA, [facility] [id number] Ben Wheeler 00:00:00 00:00:00 FIDEL [address] 2021-02-24 2021-02-24 Outpatient WOOD, [facility] [id number] Ben Wheeler 00:00:00 00:00:00 ANDREI [address] 2021-02-24 2021-02-24 Outpatient [facility] [id number] Ben Wheeler 00:00:00 00:00:[address] 2021-02-24 2021-02-24 Outpatient PALASI, [facility] [id number] Ben Wheeler 00:00:00 00:00:00 CARMEN [address] 2021-01-28 2021-02-06 Inpatient POSANI, [facility] [id number] Ben Wheeler 00:00:00 00:00:00 LEONEL [address] 2020-12-26 2020-12-26 Outpatient PALASI, [facility] [id number] [place] Wheeler 00:00:00 00:00:00 CARMEN [address] 2020-12-26 2020-12-26 Outpatient PALASI, [facility] [id number] Ben Wheeler 00:00:00 00:00:00 CARMEN [address] 2020-12-07 2020-12-09 Inpatient MCCARTAN, [facility] [id number] Ben Wheeler 00:00:00 00:00:00 SVEN [address] 2020-12-05 2020-12-05 Emergency X ARNAUD, Farhana [facility] ERT [id number] [facility] 16:23:00 16:23:00 [facility] 2020-11-01 2020-11-01 Outpatient MOORE, [facility] [id number] [address] 00:00:00 00:00:00 GURWINDER [address] 2020-10-06 2020-10-06 Outpatient ROBBEN, [facility] [id number] Ben [place] 00:00:00 00:00:00 ANNIE 782 [facility] 2020-09-30 2020-09-30 Outpatient PALASI, [facility] [id number] Ben Wheeler 00:00:00 00:00:00 CARMEN [address] 2020-09-15 2020-09-15 Outpatient [facility] [id number] Ben Wheeler 00:00:00 00:00:[address] 2020-09-02 2020-09-02 Outpatient [facility] [id number] [place] 00:00:00 00:00:[address] 2020-07-21 2020-07-21 Outpatient [facility] [id number] [place] Wheeler 00:00:00 00:00:[address] 2020-06-23 2020-06-23 Outpatient ESTRADA, [facility] [id number] [place] 00:00:00 00:00:00 OBIE [address] 2020-06-20 2020-06-20 Outpatient PALASI, [facility] [id number] [place] 00:00:00 00:00:00 CARMEN [address] 2020-05-30 2020-05-30 Outpatient PALASI, [facility] [id number] Ben Wheeler 00:00:00 00:00:00 CARMEN [address] 2020-03-28 2020-03-28 Outpatient PALASI, [facility] [id number] [place] 00:00:00 00:00:00 CARMEN [address] 2020-03-02 2020-03-02 Outpatient ESTRADA, [facility] [id number] [place] 00:00:00 00:00:00 OBIE [address] 2020-02-08 2020-02-08 Outpatient SALAM, AMIR [facility] [id number] [place] 00:00:00 00:00:[address] 2020-01-22 2020-01-22 Outpatient PALASI, [facility] [id number] [place] Wheeler 00:00:00 00:00:00 CARMEN [address] 2020-01-06 2020-01-06 Outpatient PALASI, [facility] [id number] [place] 00:00:00 00:00:00 CARMEN [address] 2019-11-27 2019-11-27 Outpatient PALASI, [facility] [id number] Ben Wheeler 00:00:00 00:00:00 CARMEN [address] 2019-09-10 2019-09-10 Outpatient PALASI, [facility] [id number] [place] 00:00:00 00:00:00 CARMEN [address] 2019-08-28 2019-08-28 Emergency Farhana Lares [facility] [id number] 09:48:14 13:12:00 Cheryl Gamino 350.1.13.10 [place] [id number] [place] [id number] 2019-08-28 2019-08-28 Emergency X Farhana LARES [facility] ERT [id number] Univers 09:48:14 13:12:00 ity of [facility] 2019-03-23 2019-03-24 Outpt Diag nullFlavo [facility] [id number] Memoria 19:49:00 04:59:00 Services r Outpatient 00 l Imaging Venancio Mata 2019-02-23 2019-02-23 Office YAHIR Sharp [id number] 13:20:24 13:35:24 Visit Blake AMBULATOR [id number] Y [id number] [facility] [place] [facility] [place] 2019-02-23 2019-02-23 Office YAHIR Sharp [id number] [facility] 13:20:24 13:35:24 Visit Blake AMBULATOR [id number] College Y [id number] [facility] 300 e 2016-06-08 2016-07-08 OP Therapy nullFlavo [facility] [id number] Memoria 14:00:00 05:59:00 Patients r [place] 03 [facility] 2016-03-26 2016-04-25 OP Therapy nullFlavo [facility] [id number] Memoria 13:00:00 04:59:00 Patients r [place] 02 [facility] 2016-03-31 2016-03-31 Emergency nullFlavo [facility] [id number] Memoria 18:27:00 23:02:00 [facility] 00 l [facility] Results Test Description Test Time Test Comments Results Result Comments Source SARS-CoV-2 (COVID-19) RNA [Presence] in Respiratory sp ecimen by 2021-02-05 11:28:32 KENJI with probe detection Test Item Value Reference Range Interpretation Comme nts SARS-CoV-2 (COVID-19) RNA [Presence] in Respiratory Not detected No t-Detected specimen by KENJI with probe detection (test code = 67674-5) Whether patient is employed in a healthcare setting (test code = 86591-4) Whether the patient has symptoms related to condition of interest (test code = 00559-3) Patient was hospitalized because of this condition (test code = 81912-3) Whether the patient was admitted to intensive care unit (ICU) for condition of interest (test code = 49478-4) Whether patient resides in a congregate care setting (test code = 80796-2) SARS-CoV-2 (COVID-19) RNA [Presence] in Respiratory specimen by KENJI with probe [id number] 19:48:43 Test Item Value Reference Range Interpretation Comments SARS-CoV-2 (COVID-19) RNA Not detected Not-Detected [Presence] in Respiratory specimen by KENJI with probe detection (test code = 33212-9) Whether patient is employed in a healthcare setting (test code = 11090-7) Whether the patient has symptoms related to condition of interest (test code = 98773-4) Patient was hospitalized because of this condition (test code = 73382-5) Whether the patient was admitted to intensive care unit (ICU) for condition of interest (test code = 42552-4) Whether patient resides in a congregate care setting (test code = 74970-6) URINE AND [id number] 21:26:00None Seen (03/31/16 4:26 PM)[facility] [place] URINE AND [id number] 21:26:00Performed (03/31/16 4:26 PM)[facility] URINE AND [id number] 21:26:00None Seen (03/31/16 4:26 PM)[facility] [place] URINE AND [id number] 21:26:00None Seen (03/31/16 4:26 PM)[facility] [place] URINE AND [id number] 21:26:00Yellow *NA*(03/31/16 4:26 PM)[facility] URINE AND [id number] 21:26:00Clear (03/31/16 4:26 PM)[facility] [id number] 21:26:000.2[facility] [id number] 21:26:00Negative *NA*(03/31/16 4:26 PM)[facility] [id number] 21:26:00Negative (03/31/16 4:26 PM)[facility] [id number] 21:26:00Negative (03/31/16 4:26 PM)[facility] [id number] 21:26:00Negative (03/31/16 4:26 PM)[facility] [id number] 21:26:00Negative (03/31/16 4:26 PM)[facility] [id number] 21:26:00<=1.005 *NA*(03/31/16 4:26 PM)[facility] STOOL 2016-03-31 21:26:00 Test Item Value Reference Range Interpretation Comments UA pH (test code = UA pH) 7.0 1 5.0-8.0 [facility] [id number] 21:26:00None Seen (03/31/16 4:26 PM) [facility] [id number] 21:26:00Performed (03/31/16 4:26 PM) [facility] [id number] 21:26:00None Seen (03/31/16 4:26 PM) [facility] [id number] 21:26:00None Seen (03/31/16 4:26 PM) [facility] [id number] 21:26:00Yellow *NA*(03/31/16 4:26 PM) [facility] [id number] 21:26:00Clear (03/31/16 4:26 PM) [facility] [id number] 21:26:000.2[facility] [id number] 21:26:00Negative *NA*(03/31/16 4:26 PM)[facility] [id number] 21:26:00Negative (03/31/16 4:26 PM)[facility] [id number] 21:26:00Negative (03/31/16 4:26 PM)[facility] [id number] 21:26:00Negative (03/31/16 4:26 PM)[facility] [id number] 21:26:00Negative (03/31/16 4:26 PM)[facility] [id number] 21:26:00<=1.005 *NA*(03/31/16 4:26 PM)[facility] [id number] 21:26:00 Test Item Value Reference Range Interpretation Comments UA pH (test code = UA pH) 7.0 1 5.0-8.0 [facility] [id number] 21:26:00None Seen (03/31/16 4:26 PM) [facility] [id number] 21:26:00Performed (03/31/16 4:26 PM) [facility] [id number] 21:26:00None Seen (03/31/16 4:26 PM) [facility] [id number] 21:26:00None Seen (03/31/16 4:26 PM) [facility] WYZKF2697[facility]25[facility]70 21:26:00Yellow *NA*(03/31/16 4:26 PM) [facility] JLGSW1091-58-65 21:26:00Clear (03/31/16 4:26 PM) [facility] XBUXT7010-04-47 21:26:000.2[facility] FHTQX3222-80-79 21:26:00Negative *NA*(03/31/16 4:26 PM)[facility] INDAB6733-25-84 21:26:00Negative (03/31/16 4:26 PM)[facility] FYHAJ7874-85-71 21:26:00Negative (03/31/16 4:26 PM)[facility] QVSGY1648-29-86 21:26:00Negative (03/31/16 4:26 PM)[facility] PUELD8497-44-87 21:26:00Negative (03/31/16 4:26 PM)[facility] MYBQQ0985-91-48 21:26:00<=1.005 *NA*(03/31/16 4:26 PM)[facility] EJTEV2582-06-62 21:26:00 Test Item Value Reference Range Interpretation Comments UA pH (test code = UA pH) 7.0 1 5.0-8.0 [facility] FXJID7178-59-92 21:26:00None Seen (03/31/16 4:26 PM) [facility] JGQGE3182-15-80 21:26:00Performed (03/31/16 4:26 PM) [facility] AUIVC6776-14-85 21:26:00None Seen (03/31/16 4:26 PM) [facility] ELGBD5566-73-27 21:26:00None Seen (03/31/16 4:26 PM) [facility] WYHBG3769-59-61 21:26:00Yellow *NA*(03/31/16 4:26 PM) [facility] OBBQV3197-49-66 21:26:00Clear (03/31/16 4:26 PM) [facility] CRZSI5261-17-40 21:26:000.2[facility] YJKYD3833-50-60 21:26:00Negative *NA*(03/31/16 4:26 PM)[facility] VQTCX9326-47-06 21:26:00Negative (03/31/16 4:26 PM)[facility] JZOJX3486-16-03 21:26:00Negative (03/31/16 4:26 PM)[facility] EJQBD8650-38-14 21:26:00Negative (03/31/16 4:26 PM)[facility] JCWQQ2405-19-85 21:26:00Negative (03/31/16 4:26 PM)[facility] ABTTX0870-53-78 21:26:00<=1.005 *NA*(03/31/16 4:26 PM)[facility] CWPLF8579-92-06 21:26:00 Test Item Value Reference Range Interpretation Comments UA pH (test code = UA pH) 7.0 1 5.0-8.0 [facility] XKEWE0951-50-30 21:26:00None Seen (03/31/16 4:26 PM) [facility] OMKTY6564-72-41 21:26:00Performed (03/31/16 4:26 PM) [facility] YBYIG9486-73-16 21:26:00None Seen (03/31/16 4:26 PM) [facility] LMXVC8716-45-00 21:26:00None Seen (03/31/16 4:26 PM) [facility] GUJCQ6110-67-38 21:26:00Yellow *NA*(03/31/16 4:26 PM) [facility] ZLBSN3598-52-34 21:26:00Clear (03/31/16 4:26 PM) [facility] GNZXX5094-71-24 21:26:000.2[facility] GBHLF1558-15-99 21:26:00Negative *NA*(03/31/16 4:26 PM)[facility] UMWFP9970-19-84 21:26:00Negative (03/31/16 4:26 PM)[facility] OSHXP3877-68-35 21:26:00Negative (03/31/16 4:26 PM)[facility] HXIEW4333-66-40 21:26:00Negative (03/31/16 4:26 PM)[facility] CLTEH5662-68-87 21:26:00Negative (03/31/16 4:26 PM)[facility] GGVTO4960-04-68 21:26:00<=1.005 *NA*(03/31/16 4:26 PM)[facility] GAHFF0368-52-93 21:26:00 Test Item Value Reference Range Interpretation Comments UA pH (test code = UA pH) 7.0 1 5.0-8.0 [facility] JORMIGM6352-02-75 19:26:15879Zjrvcebd HermannCARDIAC FWRVBZO6088-00-84 19:26:001.5[facility] WRFGWCK6477-60-28 19:26:00 <0.02[facility] SPYRDVO9410-37-53 19:26:001.0[facility] CARDIAC DYCNOUP8408-78-74 19:26:0075[facility] WRZJM1742-60-53 19:26:0049[facility] FHQZM5272-63-22 19:26:001.0[facility] WUPEX9885-69-65 19:26:003.7[facility] NBQJX4942-98-99 19:26:0012 [facility] WAAMA2759-76-41 19:26:0018.2[facility]CHE[facility] PANEL 2016-03-31 19:26:0029[facility] HLNOX2921-99-95 19:26:007.5[facility] VUBZO8532-04-40 19:26:000.5[facility] PSLAJ8394-47-86 19:26:009.5[facility] GSMTH6983-70-57 19:26:0024[facility] MPAVF0353-57-95 19:26:0097[facility] CRDWV0179-65-99 19:26:004.2 [facility] BVMGF9636-88-08 19:26:21550Qgztuith HermannCHEM PANEL 2016-03-31 19:26:001.17[facility] ZKYDW7005-92-53 19:26:0014[facility] IZMCW5736-46-03 19:26:17817Xnznnhju HermannCHEM ZMXES0196-11-03 19:26:0055[facility] FLITW3853-53-43 19:26:003.8[facility] FPMXO0239-63-90 19:26:0073[facility] LvxsexaGYCLVKXCKK3144-14-05 19:26:0035.1 [facility] TbdclieOBJINPIECW3255-67-16 19:26:0012.8[facility]annHEMATOLOGY 2016-03-31 19:26:009.6[facility] FlckiguIZJXBOBNQS5447-66-48 19:26:77944Sywhfiyr AtydevaCTFJZUGVBO9446-68-06 19:26:00 Test Item Value Reference Range Interpretation Comments MCH (test code = MCH) 33.4 pg 27.0-31.0 [facility] YcrqacpYJDAWJMIYG6583-70-75 19:26:0039.7[facility] 2016-03-31 19:26:0095.1[facility] NpmmdcyWFCPSIPFWK4917-51-10 19:26:009.2[facility] YwuzgpfZYFAHUEIQL4909-72-36 19:26:004.17[facility] CxadbmiZPUBFHKDAW4711-49-29 19:26:0013.9[facility] VfgnxnyUKMYSDQQRC6592-99-75 19:26:000.82[facility] ZVQEALASMM0219-16-23 19:26:00 Test Item Value Reference Range Interpretation Comments PROTIME (test code = PROTIME) 11.6 s 12.0-14.7 [facility] XyuchraCPOEYKBDJG8263-23-16 19:26:00 Test Item Value Reference Range Interpretation Comments aPTT (test code = aPTT) 23.0 s 22.9-35.8 [facility] KndupdpFTRLHIKNFJ6598-83-39 19:26:006.3[facility]ann[facility]MAT[facility] 2016-03-31 19:26:000.5[facility] YajancsMPNRVMGPJV0104-34-75 19:26:0028.5[facility] QrkiicsTJNEMXTWGM4656-84-58 19:26:0054.8[facility] PybehmrBXCXUJTDIC4254-44-32 19:26:009.9[facility] WtugafgRZWWVZIVDO6302-07-40 19:26:002.6[facility] KLRQUCAWUO2202-54-53 19:26:005.1[facility] TmeasxkOONDCGGTCT4284-20-69 19:26:000.9 [facility] DbqnswzZQMCEQAGLW1676-12-97 19:26:000.6[facility] ENZYMES 2016-03-31 19:26:80148Lktbfxto HermannCARDIAC PMLQIGD5082-27-16 19:26:001.5 [facility] QROFHGF6218-45-45 19:26:00<0.02[facility] CARDIAC HPSAGKK4587-52-12 19:26:001.0[facility] CRTERKD0338-78-30 19:26:0075[facility]CHE[facility] UZOJQ9361-80-45 19:26:0049[facility] BXNIL6398-18-10 19:26:001.0[facility]CHE[facility] GUXSY2912-36-86 19:26:003.7 [facility] KHAVP9809-53-06 19:26:0012[facility]annCHE[facility] PANEL 2016-03-31 19:26:0018.2[facility]CHE[facility] NOIEQ8625-34-44 19:26:0029[facility] LKUOS7375-33-39 19:26:007.5[facility] AOFPL5095-53-80 19:26:000.5[facility] XAGOF0390-30-20 19:26:009.5[facility]CHE[facility] IVQBE7366-60-66 19:26:0024[facility] UVVUZ3842-82-58 19:26:0097 [facility] TJIJQ5413-82-23 19:26:004.2[facility]annCHE[facility] PANEL 2016-03-31 19:26:10402Qmvbewpe HermannCHEM LFKCP6514-26-00 19:26:001.17[facility]annCHE[facility] ICDNS4366-26-09 19:26:0014[facility]CHE[facility] JPJKK2161-03-83 19:26:02174Loqopzlb HermannCHEM NDMHI9803-68-06 19:26:0055[facility] JZZTW6316-85-75 19:26:003.8[facility]CHE[facility] GYVZI3773-71-81 19:26:0073 [facility] UzndqajEBCPQNBCAQ0655-58-33 19:26:0035.1[facility]annHEMATOLOGY 2016-03-31 19:26:0012.8[facility] YinjmqfOHPAMSKGKD6406-03-94 19:26:009.6[facility] UqywofiPFUNBXDRFP4027-01-38 19:26:79907Tqyqlvuu QstzmfvBYXNOAYJPX7836-79-89 19:26:00 Test Item Value Reference Range Interpretation Comments MCH (test code = MCH) 33.4 pg 27.0-31.0 [facility] IfnmusiSWXECNBWGE6117-87-76 19:26:0039.7[facility] 2016-03-31 19:26:0095.1[facility] XhfyhpnBMOSJOOLAV0301-72-27 19:26:009.2[facility] VdslgtzATJGNHYCYT5958-65-59 19:26:004.17[facility] DgefhbwYTMSZHBFNW3154-06-81 19:26:0013.9[facility] SurfpqiCPGBDNTTRT1179-09-86 19:26:000.82[facility] NBENYSPAHQ8481-20-44 19:26:00 Test Item Value Reference Range Interpretation Comments PROTIME (test code = PROTIME) 11.6 s 12.0-14.7 [facility] LedlyuhGQIPHNCRRL6114-35-32 19:26:00 Test Item Value Reference Range Interpretation Comments aPTT (test code = aPTT) 23.0 s 22.9-35.8 [facility] RpeduhqRKVTBQEZDP0948-03-06 19:26:006.3[facility] 2016-03-31 19:26:000.5[facility] GuuocbtRPOGARTIAW6527-95-87 19:26:0028.5[facility] DijnpnuQQZWQXDECR6244-24-26 19:26:0054.8[facility] SmfxgcfGTXZXKJFAQ4550-59-54 19:26:009.9[facility] VltppqnXTCNPHSQHQ2426-51-00 19:26:002.6[facility] UVIJOFUCXM0448-17-12 19:26:005.1[facility] PyewqqkCZXMTGZXXA0763-65-58 19:26:000.9 [facility] BrpuoglGCNURRXOWX5986-57-17 19:26:000.6[facility] ENZYMES 2016-03-31 19:26:64864Ujxjnesc HermannCARDIAC JOZGLTW6782-19-28 19:26:001.5 [facility] PLNHSBN5183-71-62 19:26:00<0.02[facility] CARDIAC LHIXYTG4015-00-38 19:26:001.0[facility] LYVKRZR8354-95-25 19:26:0075[facility]annCHE[facility] PIVUA1751-55-07 19:26:0049[facility]annCHE[facility] GGRAV6604-63-80 19:26:001.0[facility]CHE[facility] PZCST3472-26-89 19:26:003.7 [facility] RTXNZ3582-42-20 19:26:0012[facility]annCHE[facility] PANEL 2016-03-31 19:26:0018.2[facility]annCHE[facility] PKQNU1340-84-98 19:26:0029[facility]CHE[facility] QDWDO2474-63-99 19:26:007.5[facility]annCHE[facility] MROPG6293-99-86 19:26:000.5[facility]CHE[facility] CRCVB6872-47-29 19:26:009.5[facility]annCHE[facility] TARPP3958-33-72 19:26:0024[facility]CHE[facility] QFDUY3184-16-94 19:26:0097 [facility] BEXUN8545-88-52 19:26:004.2[facility]annCHE[facility] PANEL 2016-03-31 19:26:36165Blpefhks HermannCHEM PCVJV2984-76-07 19:26:001.17[facility]annCHE[facility] ZWHKK0634-02-12 19:26:0014[facility]CHE[facility] KLJVB5151-16-62 19:26:46064Dchritvu HermannCHEM BHXRB6284-77-24 19:26:0055[facility]annCHE[facility] QRXFT7495-66-72 19:26:003.8[facility]annCHE[facility] UEDFL7828-43-81 19:26:0073 [facility] MfzldjgAHNTSMBBLA3316-15-22 19:26:0035.1[facility]annHEMATOLOGY 2016-03-31 19:26:0012.8[facility] JjnmkraTNWMLUPWPV8549-29-90 19:26:009.6[facility] IjvmblbDTMOQAHXKZ0288-01-50 19:26:31787Nnjlwhhu NhsgwfnCQZHZPYJXU0116-05-19 19:26:00 Test Item Value Reference Range Interpretation Comments MCH (test code = MCH) 33.4 pg 27.0-31.0 [facility] SfysfvmVCCDLVEVXC0433-52-29 19:26:0039.7[facility] 2016-03-31 19:26:0095.1[facility] HdrsdckJTUJTITLYV5365-58-54 19:26:009.2[facility] SnyiakxQRVVFMCQCT1819-17-12 19:26:004.17[facility] IyowegqGKRGMOIVPK1567-51-05 19:26:0013.9[facility] BfbzgphXRZOYNSTIL9799-60-95 19:26:000.82[facility] CNHONIKHRT7979-78-91 19:26:00 Test Item Value Reference Range Interpretation Comments PROTIME (test code = PROTIME) 11.6 s 12.0-14.7 [facility] KgxgagxVHVXFRWALY5079-31-70 19:26:00 Test Item Value Reference Range Interpretation Comments aPTT (test code = aPTT) 23.0 s 22.9-35.8 [facility] NpvdlchINVXSCYPGW1027-05-33 19:26:006.3[facility]annHEMATOLOGY 2016-03-31 19:26:000.5[facility] KzdkyhyTPWGTYWSDU9486-45-50 19:26:0028.5[facility] UpeydqnLJQUACDCMW1461-18-50 19:26:0054.8[facility] EzqgjihZPZQQJZUAJ0071-74-70 19:26:009.9[facility] JldzfzeIWKHTVCCIE1917-10-51 19:26:002.6[facility] HJVNBIZAIH4639-03-11 19:26:005.1[facility] YpcvzayMJHCUXEYMU2013-98-26 19:26:000.9 [facility] XyhyrzhBIONRDISAH8872-72-98 19:26:000.6[facility]annCARDIAC ENZYMES 2016-03-31 19:26:99875Tjxgdfha HermannCARDIAC NJLJOVX8927-26-27 19:26:001.5 [facility] BUUCJKG4486-99-51 19:26:00<0.02[facility] CARDIAC YLKWHAY9027-94-58 19:26:001.0[facility] TQCRHFL8534-84-86 19:26:0075[facility]annCHEM KGUHV7257-14-68 19:26:0049[facility]annCHE[facility] OUCQV7191-56-71 19:26:001.0[facility]annCHE[facility] BWQMR8871-23-50 19:26:003.7 [facility]CHE[facility] RITDY8723-36-62 19:26:0012[facility]annCHEM PANEL 2016-03-31 19:26:0018.2[facility]annCHE[facility] NXWDB7449-85-70 19:26:0029[facility]annCHE[facility] ZAUFO5536-88-91 19:26:007.5[facility]CHE[facility] FXEWO9954-12-02 19:26:000.5[facility]annCHE[facility] OVJCJ5557-66-31 19:26:009.5[facility]annCHE[facility] WURBF7825-05-44 19:26:0024[facility]CHE[facility] NUWFK3321-53-38 19:26:0097 [facility] BWPZR5841-65-67 19:26:004.2[facility]annCHEM PANEL 2016-03-31 19:26:10712Cgwnyjkj HermannCHEM ESIYE2662-84-17 19:26:001.17[facility]annCHE[facility] UMFBI2709-85-18 19:26:0014[facility]annCHE[facility] HIDKZ4536-90-50 19:26:04628Pzvqnfbc HermannCHEM DNNHQ1295-37-07 19:26:0055[facility]annCHE[facility] JVTAZ6795-21-66 19:26:003.8[facility]annCHE[facility] XBKWP4765-82-73 19:26:0073 [facility] MbzjzqgSYOAJYOAYT7740-03-98 19:26:0035.1[facility]annHEMATOLOGY 2016-03-31 19:26:0012.8[facility] LfydudyMYOZUJFBKI5105-92-77 19:26:009.6[facility] SjndtfzCALNTAUWKG1053-87-75 19:26:66709Jgdpoliu KuvneswWBHLUYFRMX4291-91-31 19:26:00 Test Item Value Reference Range Interpretation Comments MCH (test code = MCH) 33.4 pg 27.0-31.0 [facility] YfwphccJBTVDQJMZL5830-66-93 19:26:0039.7[facility]annHEMATOLOGY 2016-03-31 19:26:0095.1[facility] YdyxqnhFSDNQQXDGZ5837-73-21 19:26:009.2[facility] YtpvwakAJBTEFPPOJ4764-51-95 19:26:004.17[facility] TgojqvoXCFSDXRYUG2301-44-23 19:26:0013.9[facility] SemglafVXFKPCUXWD8732-95-91 19:26:000.82[facility] VJZRCWOMDI1523-69-26 19:26:00 Test Item Value Reference Range Interpretation Comments PROTIME (test code = PROTIME) 11.6 s 12.0-14.7 [facility] PkhtroaQJZLNCCJXY9514-98-89 19:26:00 Test Item Value Reference Range Interpretation Comments aPTT (test code = aPTT) 23.0 s 22.9-35.8 [facility] PicwcvmXREHKVDOYZ9329-89-20 19:26:006.3[facility]annHEMATOLOGY 2016-03-31 19:26:000.5[facility] DfkadzjACQXEEJCDN2106-64-89 19:26:0028.5[facility] QlulvhkWPIFKVEXDM5590-36-71 19:26:0054.8[facility] JbkbdaqJMWMFOXZML1332-78-39 19:26:009.9[facility] QbtnoxlSLKDLSAMTY7436-64-85 19:26:002.6[facility] GPRCHJXCTM3074-94-40 19:26:005.1[facility] AirdhumXZZHMCHMXV4595-92-01 19:26:000.9 [facility] MlrktqkJWBMAYCLIT8307-58-21 19:26:000.6[facility]annCARDIAC ENZYMES 2016-03-31 19:26:96135Erhmwboq HermannCARDIAC YQQZKKO9559-90-60 19:26:001.5 [facility] BKOPGRO7452-85-28 19:26:00<0.02[facility] CARDIAC HMCHVHF5672-93-30 19:26:001.0[facility]AC DYQXNPM2155-69-32 19:26:0075[facility]annCHEM UAVZY5027-98-18 19:26:0049[facility]annCHEM ILZYB0251-04-19 19:26:001.0[facility]annCHEM NZCFW8043-40-51 19:26:003.7 [facility]annCHE[facility] SIYIN4117-95-15 19:26:0012[facility]annCHEM PANEL 2016-03-31 19:26:0018.2[facility]annCHEM VNNSK2459-35-84 19:26:0029[facility]annCHEM RSJOU2267-26-02 19:26:007.5[facility]annCHEM EYUGV7344-17-22 19:26:000.5[facility]annCHEM RHGJD7632-29-69 19:26:009.5[facility]annCHEM TNFMR2629-23-30 19:26:0024[facility]annCHEM SFKYI5400-69-32 19:26:0097 [facility]annCHE[facility] PQVWH4829-70-86 19:26:004.2[facility]annCHEM PANEL 2016-03-31 19:26:88100Rrzmfqht HermannCHEM HDOIB0524-88-19 19:26:001.17[facility]annCHEM EMHBV3137-95-62 19:26:0014[facility]annCHEM YKQJK9797-30-99 19:26:20407Xeqkcilm HermannCHEM SJVTT9110-29-16 19:26:0055[facility] HermannCHEM HBVAB7147-60-75 19:26:003.8[facility] HermannCHEM LTXJC0407-68-78 19:26:0073 [facility] OwikzypBJZNUORAFT7101-35-66 19:26:0035.1[facility]annHEMATOLOGY 2016-03-31 19:26:0012.8[facility] GuezsguXONXZYLAWR7387-99-21 19:26:009.6[facility] BchjxayHBUUAPFPDH3449-07-32 19:26:96586Qamxxkzi YvacvvqHMAVTYIOYT2416-51-44 19:26:00 Test Item Value Reference Range Interpretation Comments MCH (test code = MCH) 33.4 pg 27.0-31.0 [facility] ZabrpdcHCHJTTHASB5352-44-27 19:26:0039.7[facility]annHEMATOLOGY 2016-03-31 19:26:0095.1[facility] VhftqsxPPKNEDXQNJ8351-83-31 19:26:009.2[facility] YkvnlsnUMTCLQGYYZ8515-64-74 19:26:004.17[facility] TatyiboXDKKRHPHGP7332-74-27 19:26:0013.9[facility] NytcyquHOXBOFJYIQ2479-32-34 19:26:000.82[facility] ALMIMEUSMZ1420-49-28 19:26:00 Test Item Value Reference Range Interpretation Comments PROTIME (test code = PROTIME) 11.6 s 12.0-14.7 [facility] MskspxyBUHRKBTOZU1763-03-22 19:26:00 Test Item Value Reference Range Interpretation Comments aPTT (test code = aPTT) 23.0 s 22.9-35.8 [facility] BdowreqVOWFJSVGHV1169-70-54 19:26:006.3[facility]annHEMATOLOGY 2016-03-31 19:26:000.5[facility] BfolapuFOPZCBYGKX9770-12-98 19:26:0028.5[facility] SzyceayGSFKRANHWZ5628-34-17 19:26:0054.8[facility] SkdfvhhWONJGEWMYD9839-49-86 19:26:009.9[facility] ZgpbtmoUYJAMRPCHL2087-15-94 19:26:002.6[facility] MGIJIWQSWH5012-83-07 19:26:005.1[facility] KgqdvzmZQEMFJPFBH0994-70-86 19:26:000.9 [facility] CkrgaeyRFRNCEQAKA7828-12-64 19:26:000.6[facility]
[2021-08-02 14:35] LABS: SARS-COV-2 RT PCR POSITIVE (NEGATIVE)
--- NOTE | 2021-08-02 15:25 | ER ---
Nurse's Notes [facility] Name: Mack Charles Age: 55 yrs Sex: Male : 1965 Arrival Date: 08/02/2021 Time: 12:51 Bed Waiting Private MD: Diagnosis: Coronavirus infection, unspecified Presentation: 08/02 13:11 Chief complaint: Patient states: "My girlfriend test positive accouple of days ago and jd3 I am starting to have symptoms and I thought I should probably get tested.". Coronavirus screen: cough unrelated to allergies, headache, Client presents with at least one sign or symptom that may indicate coronavirus-19. Standard/surgical mask placed on the client. Provider contacted for isolation considerations. Ebola Screen: Patient negative for fever greater than or equal to 101.5 degrees Fahrenheit, and additional compatible Ebola Virus Disease symptoms. Initial Sepsis Screen: Does the patient meet any 2 criteria? No. Patient's initial sepsis screen is negative. Does the patient have a suspected source of infection? No. Patient's initial sepsis screen is negative. Risk Assessment: Do you want to hurt yourself or someone else? Patient reports no desire to harm self or others. Onset of symptoms was August 02, 2021. 13:11 Method Of Arrival: Ambulatory jd3 13:11 Acuity: [place] 4 jd3 Triage Assessment: 14:06 General: Appears in no apparent distress. comfortable, Behavior is calm, cooperative, jd3 appropriate for age. Pain: Denies pain. EENT: Reports nasal congestion. Neuro: Level of Consciousness is awake, alert, obeys commands, Oriented to person, place, time, situation. Respiratory: Airway is patent Respiratory effort is even, unlabored, Respiratory pattern is regular, symmetrical. Historical: - Allergies: 13:12 AYANNA INHIBITORS (Hives); jd3 13:12 amlodipine; jd3 13:12 Bees (Anaphylaxis); jd3 13:12 Trazodone (Hives); jd3 13:12 Morphine; jd3 - PMHx: 13:12 Hyperlipidemia; Hypothyroidism; Diabetes - IDDM; Hypertension; acid reflux; jd3 - PSHx: 13:12 Cholecystectomy; jd3 - Immunization history:: Adult Immunizations up to date, Client reports receiving the 2nd dose of the Covid vaccine. - Social history:: Smoking status: Patient/guardian denies using tobacco, but has a distant history of tobacco abuse. Vital Signs: 13:13 BP 138 / 80; Pulse 78; Resp 17 S; Temp 98.2(TE); Pulse Ox 100% on R/A; Weight 86.18 kg jd3 (R); Height 5 ft. 11 in. (180.34 cm) (R); Pain 1/10; 13:13 Body Mass Index 26.50 (86.18 kg, 180.34 cm) jd3 ED Course: 12:51 Patient arrived in ED. mr 13:12 Triage completed. jd3 13:13 Arm band placed on. jd3 15:01 [facility]C [facility] kb 15:01 Luis Alberto Mcclure MD is Attending Physician. kb 15:35 Marylu Preston, RN is Primary Nurse. iw Administered Medications: No medications were administered Outcome: 15:24 Discharge ordered by MD. kb 15:35 Patient left the ED. iw Signatures: Joan Sheehan FNP-C FNP-Ckb Rivera, Mary mr Marylu Preston, RN RN iw Delvin Morales RN RN jd3
--- NOTE | 2021-08-02 15:25 | EDPHYS ---
Physician Documentation [facility] Name: Mack Charles Age: 55 yrs Sex: Male : 1965 Arrival Date: 08/02/2021 Time: 12:51 Bed Waiting Private MD: ED Physician Luis Alberto Mcclure HPI: 08/02 15:56 This 55 yrs old Male presents to ER via Ambulatory with complaints of Sore Throat, kb Headache, Diarrhea. 15:23 Pt reports sore throat, runny nose, headache and diarrhea that started yesterday. kb Girlfriend has covid. 15:56 The patient presents with sore throat. The patient describes throat pain as constant. kb Onset: The symptoms/episode began/occurred yesterday. Severity of symptoms: At their worst the symptoms were mild, in the emergency department the symptoms are unchanged. Modifying factors: The symptoms are alleviated by nothing, the symptoms are aggravated by nothing, Patient's oral intake status: good. Associated signs and symptoms: Pertinent positives: diarrhea, headache, rhinorrhea, Sore throat Pertinent negatives fever. The patient has not experienced similar symptoms in the past. The patient has not recently seen a physician. Historical: - Allergies: 13:12 AYANNA INHIBITORS (Hives); jd3 13:12 amlodipine; jd3 13:12 Bees (Anaphylaxis); jd3 13:12 Trazodone (Hives); jd3 13:12 Morphine; jd3 - PMHx: 13:12 Hyperlipidemia; Hypothyroidism; Diabetes - IDDM; Hypertension; acid reflux; jd3 - PSHx: 13:12 Cholecystectomy; jd3 - Immunization history:: Adult Immunizations up to date, Client reports receiving the 2nd dose of the Covid vaccine. - Social history:: Smoking status: Patient/guardian denies using tobacco, but has a distant history of tobacco abuse. ROS: 15:55 Constitutional: Negative for fever, chills, and weight loss. kb 15:55 ENT: Positive for rhinorrhea, sore throat. 15:55 Abdomen/GI: Positive for diarrhea, Negative for abdominal pain, nausea and vomiting. 15:55 Neuro: Positive for headache. 15:55 All other systems are negative. Exam: 15:56 Constitutional: This is a well developed, well nourished patient who is awake, alert, kb and in no acute distress. Head/Face: Normocephalic, atraumatic. ENT: Moist Mucous membranes Cardiovascular: Regular rate and rhythm with a normal S1 and S2. No gallops, murmurs, or rubs. No pulse deficits. Respiratory: Respirations even and unlabored. No increased work of breathing. Talking in full sentences Skin: Warm, dry with normal turgor. Normal color. MS/ Extremity: Pulses equal, no cyanosis. Neurovascular intact. Full, normal range of motion. Neuro: Awake and alert, GCS 15, oriented to person, place, time, and situation. Moves all extremities. Normal gait. Psych: Awake, alert, with orientation to person, place and time. Behavior, mood, and affect are within normal limits. Vital Signs: 13:13 BP 138 / 80; Pulse 78; Resp 17 S; Temp 98.2(TE); Pulse Ox 100% on R/A; Weight 86.18 kg jd3 (R); Height 5 ft. 11 in. (180.34 cm) (R); Pain 1/10; 13:13 Body Mass Index 26.50 (86.18 kg, 180.34 cm) jd3 MDM: 15:23 Patient medically screened. kb 15:55 Data reviewed: vital signs, nurses notes. Data interpreted: Pulse oximetry: on room air kb is 100 %. Interpretation: normal. Counseling: I had a detailed discussion with the patient and/or guardian regarding: the historical points, exam findings, and any diagnostic results supporting the discharge/admit diagnosis, lab results, the need for outpatient follow up, a family practitioner, to return to the emergency department if symptoms worsen or persist or if there are any questions or concerns that arise at home. 08/02 13:11 Order name: COVID-19/FLU A+B (Document "Date of Onset" if Symptomatic); Complete Time: jd3 15:01 Administered Medications: No medications were administered Disposition: 17:28 Co-signature as Attending Physician, Luis Alberto Mcclure MD I agree with the assessment and kdr plan of care. Disposition Summary: 08/02/21 15:24 Discharge Ordered Location: Home kb Condition: Stable kb Diagnosis - Coronavirus infection, unspecified kb Followup: kb - With: Emergency Department - When: As needed - Reason: Worsening of condition Followup: kb - With: Private Physician - When: 2 - 3 days - Reason: Recheck today's complaints, Continuance of care, Re-evaluation by your physician Discharge Instructions: - Discharge Summary Sheet kb - Viral Respiratory Infection, [id number] kb - COVID-19 kb Forms: - Medication Reconciliation Form kb - Thank You Letter kb - Antibiotic Education kb - Prescription Opioid Use kb Signatures: Dispatcher [employer] EDJoan Weinberg, Luis Alberto Hogue MD MD kdr Davies, Jonathon RN RN jd3
[2021-08-02 15:41] VITALS: BP 138/80; TEMP 98.2; O2SAT 100
== END 2021-08-02 15:35 | disposition home or self-care (01) ==
LOC: ER 12:49
DX: U07.1 COVID-19 (principal); I10 Essential (primary) hypertension; Z88.5 Allergy status to narcotic agent; Z88.8 Allergy status to other drugs, medicaments and biological substances; Z91.030 Bee allergy status
CPT/HCPCS: 0240U; 99281

== ENCOUNTER 2021-11-29 23:17 | Emergency (ER) | payer BC ==
--- OUTSIDE RECORDS SUMMARY | 2021-11-29 23:22 | XMS REPORT | Continuity of Care Document ---
:1965 Author Organization [facility] t Address [address] [place] [address] Care Team Providers Name Role Phone ISAURA ANDRES Primary Care Physician Unavailable OSCAR Attending Clinician Unavailable MCKENNA Attending Clinician Unavailable DANIELLE Attending Clinician Unavailable THEO Attending Clinician Unavailable FEI Attending Clinician Unavailable MAUDE Attending Clinician Unavailable ISRAEL Attending Clinician Unavailable JAMISON Attending Clinician Unavailable MD JAMISON Attending Clinician Unavailable CORI Attending Clinician Unavailable DO MARIPOSA PERSAUD Attending Clinician Unavailable CHERYL LARES Attending Clinician Unavailable PARISH Attending Clinician Unavailable NATALIE Attending Clinician Unavailable Cheryl Zuluaga Attending Clinician Lila CABRERA Attending Clinician OSCAR Admitting Clinician Unavailable DANIELLE Admitting Clinician Unavailable MAUDE Admitting Clinician Unavailable IVAN Admitting Clinician Unavailable MD Patrick LOVE Admitting Clinician Unavailable CORI Admitting Clinician Unavailable DO MARIPOSA PERSAUD Admitting Clinician Unavailable CHERYL LARES Admitting Clinician Unavailable Payers Payer Name Policy Type Policy Number Effective Date Expiration Date S julian [facility] [id number] 2017 00:00:00 OUT OF STATE Problems Condition Condition Condition Status Onset Resolution Last Treating Co mments Source Name Details Category Date Date Treatment Clinician Date H55.00 - Diagnosis Active 2019-03-23 M emoria UNSPECIFIE 03-11 14:58:00 l D H55.00 - 00:01: Lionel krishna NYSTAGMUS UNSPECIFIE 00 D NYSTAGMUS Active 03/11/2019 JACINTO Lowell SOB Diagnosis Active 2016-03-31 Mem oria 03-31 14:46:00 l SOB 00:00: [place] 00 Active 03/31/2016 [facility] Venancio No known No known Disease [facility] r active active [place] problems problems of Medicin e Hypertensi Problem Resolve 2019-03-25 Memoria ve d 22:40:30 l disorder, [place] systemic Hypertensi arterial ve (disorder) disorder, systemic arterial (disorder) Resolved Problem 03/25/2019 David Mtaa,M [facility] LUMBOSACRA Diagnosis Active 2016-04-16 Memoria L SPONDY 17:39:00 l [place] LUMBOSACRA L SPONDY Active [facility] LUMBOSACRA Diagnosis Active 2016-04-14 Memoria L SPONDY 16:38:00 l W/O [place] MYELOPATHY LUMBOSACRA L SPONDY W/O MYELOPATHY Active [facility] AQUA Diagnosis Active 2016-06-08 Mem oria LUMBOSACRA 08:08:00 l L AQUA Venancio LUMBOSACRA L Active [facility] History of Past Illness Condition Condition Condition Status Onset Resolution Last Treating Co mments Source Name Details Category Date Date Treatment Clinician Date Discharge Problem 2016-04-03 2016-04-03 Memoria Diagnosis: 03-31 01:18:28 01:18:28 l DVT of 05:00: Venancio upper Discharge 00 extremity Diagnosis: (deep vein DVT of thrombosis upper ) extremity (deep vein thrombosis ) 03/31/2016 04/03/2016 [facility] Discharge Problem 2016-04-03 2016-04-03 Memoria Diagnosis: 03-31 01:18:28 01:18:28 l Hyperglyce 05:00: Lionel n raman Discharge 00 Diagnosis: Hyperglyce raman 03/31/2016 04/03/2016 [facility] Allergies, Adverse Reactions, Alerts Allergy Allergy Status Severity Reaction(s) Onset Inactive Treating Comm ents Source Name Type Date Date Clinician AMLODIPI DRUG Active Hives Univers NE INGREDI 5-24 ity of 00:00: [facility] HYDROCHL DRUG Active Other-Cmnt Univ ers OROTHIAZ INGREDI 5-24 ity of ETIENNE 00:00: [facility] АЛЕКСАНДР Drug Active Hives Univers INHIBITO Class 2-14 ity of RS 00:00: [facility] BEE DRUG Active Swelling Univers STING / INGREDI 2-14 ity of VENOM 00:00: [facility] TRAZODON DRUG Active Hives Univers E INGREDI 2-14 ity of 00:00: [facility] Александр Propensi Active 2016-07 [facility] Inhibito ty to 08-25 [place] rs adverse 00:00: of reaction 00 Medicin s to e drug Trazodon Propensi Active 2016-07 [facility] e And ty to 08-25 [place] Nefazodo adverse 00:00: of ne reaction 00 Medicin s to e drug АЛЕКСАНДР АЛЕКСАНДР Active Memoria Inhibito Inhibito l rs rs Venancio traZODon traZODon Active Memori a e e l [place] Social History Social Habit Start Date Stop Date Quantity Comments Source Sex Assigned At [facility] Smoking Status Start Date Stop Date Source Former smoker 2019-02-23 00:00:00 2019-02-23 00:00:00 [facility] Medications Ordered Filled Start Stop Current Ordering Indication Dosage Frequency Signature Comments Components Source Medication Medication Date Date Medication? Clinician (SIG) Name Name Multiple Yes Take by [facility] Vitamins-Mi 8-12 mouth. Colleg e nerals 18:32: of (MULTIVITAL 20 Medicin OR) e fexofenadin Yes 180mg Take 180 B aylor e (RAN) 8-12 mg by College 180 MG 18:28: mouth. of tablet 30 Medicin e losartan Yes 100mg Take 100 [facility] (COZAAR) 8-12 mg by [place] 100 MG 18:28: mouth. of tablet 30 Medicin e Lutein 20 Yes Take by [facility] MG CAPS 8-12 mouth. College 18:28: of 30 Medicin e aspirin EC Yes 81mg Take 81 mg B aylor 81 MG TBEC 8-12 by mouth Colle ge 18:28: daily. of 30 Medicin e Ascorbic Yes 1000mg Take 1,000 [facility] a[facility] Acid 8-12 mg by College (VITAMIN C) 18:28: mouth. of 1000 MG 30 Medicin TABS e esomeprazol Yes 40mg Take 40 mg [facility] e (NEXIUM) 8-12 by mouth. Geovanna ege 40 MG 18:28: of capsule 30 Medicin e SYNTHROID Yes [facility] 50 MCG 7-03 [place] tablet 00:00: of 00 Medicin e tacrolimus Yes [id number] Apply to [facility] (PROTOPIC) 3-05 [facility] 0.1 % 00:00: eyelid of ointment [...] Memoria - (Same as: l 22:23: Xarelto) [place] 00 Administer with food Xarelto No Notes: Memoria - (Same as: l 22:23: Xarelto) Venancio 00 Administer with food Xarelto No Notes: Memoria - (Same as: l 22:23: Xarelto) [place] 00 Administer with food Xarelto No Notes: Memoria - (Same as: l 22:23: Xarelto) Venancio 00 Administer with food Sodium No 1,000 mL, Memori a Chloride 03-31 1,000 l 0.154 20:28: ml/hr, [place] MEQ/ML 00 Infuse Injectable Over: 1 Solution [...] Chloride 9-17 1,000 l 0.154 20:28: ml/hr, [place] MEQ/ML 00 Infuse Injectable Over: 1 Solution hr, Route: IV, 1,000, Drug form: INJ, ONCE, Priority: STAT, Dosing Weight 103.636 kg, Start date: 03/31/16 15:28:00 CDT, Duration: 1 doses or times, Stop date: 03/31/16 15:28:00 CDT Sodium 2016-0 No 1,000 mL, Memori a Chloride 9-17 1,000 l 0.154 20:28: ml/hr, [place] MEQ/ML 00 Infuse Injectable Over: 1 Solution hr, Route: IV, 1,000, Drug form: INJ, ONCE, Priority: STAT, Dosing Weight 103.636 kg, Start date: 03/31/16 15:28:00 CDT, Duration: 1 doses or times, Stop date: 03/31/16 15:28:00 CDT Sodium 2016-0 No 1,000 mL, Memori a Chloride 9-17 1,000 l 0.154 20:28: ml/hr, [place] MEQ/ML 00 Infuse Injectable Over: 1 Solution [...] Ondansetron 2016-0 No 4 mg, Memor ia 03-31 Route: l 19:17: IVP, ONCE, Dosing Weight 103.636, kg, Priority: STAT, Start date: 03/31/16 14:17:00 CDT, Stop date: 03/31/16 14:17:00 CDT Saline 2015-0 No Notes: Memoria Flush 0.9% 9-17 preservati l 19:17: ve free. Morphine 2016-0 No 4 mg, Memoria 9-17 Route: l 19:17: IVP, ONCE, Dosing Weight 103.636, kg, Priority: STAT, Start date: 03/31/16 14:17:00 CDT, Stop date: 03/31/16 14:17:00 CDT Ondansetron 2015-0 No 4 mg, Memor ia 03-31 Route: l 19:17: IVP, ONCE, Dosing Weight 103.636, kg, Priority: STAT, Start date: 03/31/16 14:17:00 CDT, Stop date: 03/31/16 14:17:00 CDT Saline 2015-0 No Notes: Mem[facility] Flush 0.9% 9-17 preservati l 19:17: ve free. Vital Signs Vital Name Observation Time Observation Value Comments Source Systolic blood 2019-02-23 18:26:00 111 mm[Hg] [facility] pressure Medicine Diastolic blood 2019-02-23 18:26:00 67 mm[Hg] [facility] pressure Medicine Heart rate 2019-02-23 18:26:00 95 /min [facility] Body height 2019-02-23 18:26:00 180.3 cm [facility] Body weight 2019-02-23 18:26:00 77.111 kg [facility] BMI 2019-02-23 18:26:00 23.71 kg/m2 [facility] Systolic blood 2019-02-23 18:26:00 111 mm[Hg] [facility] Medicine Diastolic blood 2019-02-23 18:26:00 67 mm[Hg] [facility] Medicine Heart rate 2019-02-23 18:26:00 95 /min [facility] Body height 2019-02-23 18:26:00 180.3 cm [facility] Body weight 2019-02-23 18:26:00 77.111 kg [facility] BMI 2019-02-23 18:26:00 23.71 kg/m2 [facility] Temperature Oral (F) 2016-03-31 22:30:00 97.8 F [facility] Respitory Rate 2016-03-31 22:30:00 Memori al [place] Heart Rate 2016-03-31 22:30:00 [facility] Systolic (mm Hg) 2016-03-31 22:30:00 Hood rial Venanc[place] Diastolic (mm Hg) 2016-03-31 22:30:00 Mem orial [place] Heart Rate 2016-03-31 21:30:00 [facility] Systolic (mm Hg) 2016-03-31 21:30:00 Hood rial [place] Diastolic (mm Hg) 2016-03-31 21:30:00 Mem orial [place] Respitory Rate 2016-03-31 21:30:00 Memori al [place] Heart Rate 2016-03-31 21:00:00 [facility] Systolic (mm Hg) 2016-03-31 21:00:00 Hood rial [place] Diastolic (mm Hg) 2016-03-31 21:00:00 Mem orial [place] Respitory Rate 2016-03-31 21:00:00 Memori al [place] BMI Calculated 2016-03-31 18:36:00 Memori al [place] Temperature Oral (F) 2016-03-31 18:36:00 97.3 F [facility] Weight 2016-03-31 18:36:00 [facility] Height 2016-03-31 18:36:00 180.34 cm [facility] Procedures This patient has no known procedures. Plan of Care Planned Activity Planned Date Details Comments Source Future Scheduled Test COLON CANCER SCREENING: [facility] COLONOSCOPY [code = Medicine COLON CANCER SCREENING: COLONOSCOPY] Future Scheduled Test TETANUS SHOT (ADULT) [facility] [code = TETANUS SHOT Medicin e (ADULT)] Future Scheduled Test HIV SCREENING [code = [facility] HIV SCREENING] Medicine Future Scheduled Test FLU VACCINE > 6 MONTHS [facility] [code = FLU VACCINE > 6 Medi cine MONTHS] Future Scheduled Test PREVNAR >= 65 (PCV13) [facility] [code = PREVNAR >= 65 Medici ne (PCV13)] Encounters Start End Encounter Admission Attending Care Care Encounter Source Date/Time Date/Time Type Type Clinicians Facility Department ID 2021-11-22 2021-11-22 [id number] [place] 00:00:00 00:00:00 GURWINDER [address] 2021-11-16 2021-11-16 Outpatient MCKENNA, [facility] [id number] [place] 00:00:00 00:00:00 CARMEN [address] 2021-11-07 2021-11-07 Outpatient MOORE, [facility] [id number] [place] 00:00:00 00:00:00 GURWINDER [address] 2021-11-07 2021-11-07 Outpatient MCKENNA, [facility] [id number] [place] 00:00:00 00:00:00 CARMEN [address] 2021-11-04 2021-11-05 Outpatient DANIELLE, [facility] [id number] [place] 00:00:00 00:00:00 NIHARIKA [address] 2021-10-31 2021-10-31 Outpatient OSCAR [facility] [id number] [place] 00:00:00 00:00:00 GURWINDER [address] 2021-10-20 2021-10-20 Outpatient MCKENNA, [facility] [id number] [place] 00:00:00 00:00:00 CARMEN [address] 2021-10-02 2021-10-02 Outpatient PALISIAH, [facility] [id number] [place] 00:00:00 00:00:00 CARMEN [address] 2021-07-10 2021-07-10 Outpatient [facility] [id number] [place] 00:00:00 00:00:[address] 2021-06-21 2021-06-21 Outpatient SALAM, AMIR [facility] [id number] [place] 00:00:00 00:00:[address] 2021-04-08 2021-04-08 Emergency BAKSHY, [facility] [id number] [place] 00:00:00 00:00:00 MIKE [address] 2021-03-29 2021-03-29 Outpatient PALASI, [facility] [id number] [place] 00:00:00 00:00:00 CARMEN [address] 2021-03-21 2021-03-21 Outpatient DACHA, [facility] [id number] [place] 00:00:00 00:00:00 FIDEL [address] 2021-03-01 2021-03-01 Outpatient DACHA, [facility] [id number] [place] 00:00:00 00:00:00 FIDEL [facility] 2021-02-24 2021-02-24 Outpatient WOOD, [facility] [id number] [place] 00:00:00 00:00:00 ANDREI [address] 2021-02-24 2021-02-24 Outpatient [facility] [id number] [place] 00:00:00 00:00:[address] 2021-02-24 2021-02-24 Outpatient PALASI, [facility] [id number] [place] 00:00:00 00:00:00 CARMEN [facility] [facility] 2021-01-28 2021-02-06 Inpatient POSANI, [facility] [id number] [place] 00:00:00 00:00:00 LEONEL [address] 2020-12-26 2020-12-26 Outpatient PALASI, [facility] [id number] [place] 00:00:00 00:00:00 CARMEN [address] 2020-12-26 2020-12-26 Outpatient PALASI, [facility] [id number] [place] 00:00:00 00:00:00 CARMEN [address] 2020-12-07 2020-12-09 Inpatient MCCARTAN, [facility] [id number] [place] 00:00:00 00:00:00 SVEN [address] 2020-12-05 2020-12-05 Emergency X Farhana LARES [facility] ERT [id number] Univers 16:23:00 16:23:00 ity of [facility] 2020-11-01 2020-11-01 Outpatient MOORE, [facility] [id number] [place] 00:00:00 00:00:00 GURWINDER [address] 2020-10-06 2020-10-06 Outpatient ROBBEN, [facility] [id number] [place] 00:00:00 00:00:00 ANNIE [address] 2020-09-30 2020-09-30 Outpatient PALASI, [facility] [id number] [place] 00:00:00 00:00:00 CARMEN [address] 2020-09-15 2020-09-15 Outpatient [facility] [id number] [place] 00:00:00 00:00:[address] 2020-09-02 2020-09-02 Outpatient [facility] [id number] [place] 00:00:00 00:00:[address] 2020-07-21 2020-07-21 Outpatient [facility] [id number] [place] 00:00:00 00:00:[address] 2020-06-23 2020-06-23 Outpatient ESTRADA, [facility] [id number] [place] 00:00:00 00:00:00 OBIE [address] 2020-06-20 2020-06-20 Outpatient PALASI, [facility] [id number] [place] 00:00:00 00:00:00 CARMEN [address] 2020-05-30 2020-05-30 Outpatient PALASI, [facility] [id number] [place] 00:00:00 00:00:00 CARMEN [address] 2020-03-28 2020-03-28 Outpatient PALASI, [facility] [id number] [place] 00:00:00 00:00:00 CARMEN [address] 2020-03-02 2020-03-02 Outpatient ESTRADA, [facility] [id number] [place] 00:00:00 00:00:00 OBIE [address] 2020-02-08 2020-02-08 Outpatient SALAM, AMIR [facility] [id number] [place] 00:00:00 00:00:[address] 2020-01-22 2020-01-22 Outpatient PALASI, [facility] [id number] [place] 00:00:00 00:00:00 CARMEN [address] 2020-01-06 2020-01-06 Outpatient PALASI, [facility] [id number] [place] 00:00:00 00:00:00 CARMEN [address] 2019-11-27 2019-11-27 Outpatient PALASI, [facility] [id number] [place] 00:00:00 00:00:00 CARMEN [address] 2019-09-10 2019-09-10 Outpatient PALASI, [facility] [id number] [place] 00:00:00 00:00:00 CARMEN [address] 2019-08-28 2019-08-28 Emergency Farhana Lares [facility] [id number] 09:48:14 13:12:00 Cheryl Gamino 350.1.13.10 [place] 4.2.7.2.686 [place] [id number] 2019-08-28 2019-08-28 Emergency X Farhana LARES [facility] ERT [id number] Univers 09:48:14 13:12:00 ity of [facility] 2019-03-23 2019-03-24 Outpt Diag nullFlavo [facility] [id number] Memoria 19:49:00 04:59:00 Services r Outpatient 00 l Analilia Mata 2019-02-23 2019-02-23 Office YAHIR Sharp [id number] 13:20:24 13:35:24 Visit Blake AMBULATOR 350.1.13.21 Y [id number] [id number] 2019-02-23 2019-02-23 Office YAHIR Sharp [id number] [facility] 13:20:24 13:35:24 Visit Blake AMBULATOR 350.1.13.21 College Y [id number] [facility] 300 e 2016-06-08 2016-07-08 OP Therapy nullFlavo [facility] [id number] Memoria 14:00:00 05:59:00 Patients r Esperanza 03 l [facility] 2016-03-26 2016-04-25 OP Therapy nullFlavo [facility] [id number] Memoria 13:00:00 04:59:00 Patients r Lowell 02 l [facility] 2016-03-31 2016-03-31 Emergency nullFlavo [facility] [id number] Memoria 18:27:00 23:02:00 r Haskell 00 [facility] Results Test Description Test Time Test Comments Results Result Comments Source SARS-CoV-2 (COVID-19) RNA [Presence] in Respiratory sp ecimen by 2021-11-04 11:45:21 KENJI with probe detection Test Item Value Reference Range Interpretation Comme nts SARS-CoV-2 (COVID-19) RNA [Presence] in Respiratory specimen by Not detected KENJI with probe detection (test code = 69360-0) Whether patient is employed in a healthcare setting (test code = Un known 24831-7) Whether the patient has symptoms related to condition of interest U nknown (test code = 22811-4) Whether the patient was hospitalized for condition of interest Unkn own (test code = 19678-5) Whether the patient was admitted to intensive care unit (ICU) for U nknown condition of interest (test code = 14447-5) Whether patient resides in a congregate care setting (test code = U nknown 21302-2) status (test code = 32233-0) Unknown Date and time of symptom onset (test code = 46868-0) Unknown SARS-CoV-2 (COVID-19) RNA [Presence] in Respiratory specimen by KENJI with probe [id number] 11:28:32 Test Item Value Reference Range Interpretation Comments SARS-CoV-2 (COVID-19) RNA Not detected Not-Detected [Presence] in Respiratory specimen by KENJI with probe detection (test code = 52061-2) Whether patient is employed in a healthcare setting (test code = 91088-4) Whether the patient has symptoms related to condition of interest (test code = 59042-1) Patient was hospitalized because of this condition (test code = 62972-1) Whether the patient was admitted to intensive care unit (ICU) for condition of interest (test code = 57455-9) Whether patient resides in a congregate care setting (test code = 56157-8) SARS-CoV-2 (COVID-19) RNA [Presence] in Respiratory specimen by KENJI with probe [id number] 19:48:43 Test Item Value Reference Range Interpretation Comments SARS-CoV-2 (COVID-19) RNA Not detected Not-Detected [Presence] in Respiratory specimen by KENJI with probe detection (test code = 52191-9) Whether patient is employed in a healthcare setting (test code = 50077-5) Whether the patient has symptoms related to condition of interest (test code = 76393-1) Patient was hospitalized because of this condition (test code = 58034-6) Whether the patient was admitted to intensive care unit (ICU) for condition of interest (test code = 50888-6) Whether patient resides in a congregate care setting (test code = 87685-8) URINE AND [id number] 21:26:00None Seen (03/31/16 4:26 PM)[facility] URINE AND [id number] 21:26:00Performed (03/31/16 4:26 PM)[facility] URINE AND [id number] 21:26:00None Seen (03/31/16 4:26 PM)[facility] URINE AND [id number] 21:26:00None Seen (03/31/16 4:26 PM)[facility] URINE AND [id number] 21:26:00Yellow *NA*(03/31/16 4:26 PM)[facility] URINE AND [id number] 21:26:00Clear (03/31/16 4:26 PM)[facility] [id number] 21:26:000.2[facility] [id number] 21:26:00Negative *NA*(03/31/16 4:26 PM)[facility] [id number] 21:26:00Negative (03/31/16 4:26 PM)[facility] [id number] 21:26:00Negative (03/31/16 4:26 PM)[facility] [id number] 21:26:00Negative (03/31/16 4:26 PM)[facility] [id number] 21:26:00Negative (03/31/16 4:26 PM)[facility] [id number] 21:26:00<=1.005 *NA*(03/31/16 4:26 PM)[facility] STOOL 2016-03-31 21:26:00 Test Item Value Reference Range Interpretation Comments UA pH (test code = UA pH) 7.0 1 5.0-8.0 [facility] [id number] 21:26:00None Seen (03/31/16 4:26 PM) [facility] [id number] 21:26:00Performed (03/31/16 4:26 PM) [facility] [id number] 21:26:00None Seen (03/31/16 4:26 PM) [facility] [id number] 21:26:00None Seen (03/31/16 4:26 PM) [facility] [id number] 21:26:00Yellow *NA*(03/31/16 4:26 PM) [facility] [id number] 21:26:00Clear (03/31/16 4:26 PM) [facility] [id number] 21:26:000.2[facility] [id number] 21:26:00Negative *NA*(03/31/16 4:26 PM)[facility] [id number] 21:26:00Negative (03/31/16 4:26 PM)[facility] [id number] 21:26:00Negative (03/31/16 4:26 PM)[facility] [id number] 21:26:00Negative (03/31/16 4:26 PM)[facility] [id number] 21:26:00Negative (03/31/16 4:26 PM)[facility] [id number] 21:26:00<=1.005 *NA*(03/31/16 4:26 PM)[facility] [id number] 21:26:00 Test Item Value Reference Range Interpretation Comments UA pH (test code = UA pH) 7.0 1 5.0-8.0 [facility] [id number] 21:26:00None Seen (03/31/16 4:26 PM) [facility] [id number] 21:26:00Performed (03/31/16 4:26 PM) [facility] [id number] 21:26:00None Seen (03/31/16 4:26 PM) [facility] [id number] 21:26:00None Seen (03/31/16 4:26 PM) [facility] [id number] 21:26:00Yellow *NA*(03/31/16 4:26 PM) [facility] [id number] 21:26:00Clear (03/31/16 4:26 PM) [facility] [id number] 21:26:000.2[facility] [id number] 21:26:00Negative *NA*(03/31/16 4:26 PM)[facility] [id number] 21:26:00Negative (03/31/16 4:26 PM)[facility] [id number] 21:26:00Negative (03/31/16 4:26 PM)[facility] [id number] 21:26:00Negative (03/31/16 4:26 PM)[facility] [id number] 21:26:00Negative (03/31/16 4:26 PM)[facility] [id number] 21:26:00<=1.005 *NA*(03/31/16 4:26 PM)[facility] [id number] 21:26:00 Test Item Value Reference Range Interpretation Comments UA pH (test code = UA pH) 7.0 1 5.0-8.0 [facility] [id number] 21:26:00None Seen (03/31/16 4:26 PM) [facility] [id number] 21:26:00Yellow *NA*(03/31/16 4:26 PM) [facility] [id number] 21:26:00Clear (03/31/16 4:26 PM) [facility] [id number] 21:26:000.2[facility] [id number] 21:26:00Negative *NA*(03/31/16 4:26 PM)[facility] [id number] 21:26:00Negative (03/31/16 4:26 PM)[facility] [id number] 21:26:00Negative (03/31/16 4:26 PM)[facility] [id number] 21:26:00Negative (03/31/16 4:26 PM)[facility] [id number] 21:26:00Negative (03/31/16 4:26 PM)[facility] [id number] 21:26:00<=1.005 *NA*(03/31/16 4:26 PM)[facility] [id number] 21:26:00 Test Item Value Reference Range Interpretation Comments UA pH (test code = UA pH) 7.0 1 5.0-8.0 [facility] [id number] 21:26:00None Seen (03/31/16 4:26 PM) [facility] [id number] 21:26:00Performed (03/31/16 4:26 PM) [facility] HDGOS7085[facility]49 21:26:00None Seen (03/31/16 4:26 PM) [facility] HAFTX8395-44-39 21:26:00None Seen (03/31/16 4:26 PM) [facility] OYZVS9270-47-43 21:26:00Yellow *NA*(03/31/16 4:26 PM) [facility] HPRYX2948-87-63 21:26:00Clear (03/31/16 4:26 PM) [facility] GZASP8694-26-20 21:26:000.2[facility] EVAMO8771-48-23 21:26:00Negative *NA*(03/31/16 4:26 PM)[facility] TBNVS3711-20-74 21:26:00Negative (03/31/16 4:26 PM)[facility] MXIIN2848-89-37 21:26:00Negative (03/31/16 4:26 PM)[facility] OZLJS6288-79-07 21:26:00Negative (03/31/16 4:26 PM)[facility] ZARHL5695-52-00 21:26:00Negative (03/31/16 4:26 PM)[facility] KLLJZ0256-70-90 21:26:00<=1.005 *NA*(03/31/16 4:26 PM)[facility] KNHJO1691-57-30 21:26:00 Test Item Value Reference Range Interpretation Comments UA pH (test code = UA pH) 7.0 1 5.0-8.0 [facility] LJSMA2145-09-86 21:26:00None Seen (03/31/16 4:26 PM) [facility] GEOAW7506-70-88 21:26:00Performed (03/31/16 4:26 PM) [facility] VKZVT9155-91-30 21:26:00None Seen (03/31/16 4:26 PM) [facility] UQQOTFQ8832-24-24 19:26:27324Dlycxocj [facility] EONRTPL4475-72-94 19:26:001.5[facility] XKUEJUO5899-53-91 19:26:00 <0.02[facility] ENDRMDQ3030-76-26 19:26:001.0[facility] CARDIAC RGNXTCG9042-25-01 19:26:0075[facility] YPVJG2243-30-87 19:26:0049[facility] TYHTP3048-78-22 19:26:001.0[facility] SZCUX7504-83-11 19:26:003.7[facility] RRLGK0948-09-38 19:26:0012 [facility] PMQDZ9004-13-89 19:26:0018.2[facility]ann[facility] PANEL 2016-03-31 19:26:0029[facility] EPFMY0641-91-10 19:26:007.5[facility] TWIME9403-80-20 19:26:000.5[facility] TBIUH0183-02-23 19:26:009.5[facility] QBXHW5655-61-11 19:26:0024[facility] JHLLL6910-56-60 19:26:0097[facility] JVTQX0894-26-57 19:26:004.2 [facility] YQXNM2211-13-80 19:26:43536Byvywxjq HermannCHEM PANEL 2016-03-31 19:26:001.17[facility]CHE[facility] SIEVM8486-95-05 19:26:0014[facility] ECREJ4754-40-63 19:26:30817Ejcevszs HermannCHEM FPDLS0032-61-17 19:26:0055[facility]ann[facility] WHFJR4255-05-08 19:26:003.8[facility]CHE[facility] OPVYE2558-37-36 19:26:0073[facility] ElelzigXRNNUALDRY6826-57-25 19:26:0035.1 [facility] VidpwrtKEOQTHXCWN6335-33-78 19:26:0012.8[facility]annHEMATOLOGY 2016-03-31 19:26:009.6[facility] IkzsouaDGZIPVAWYC4461-11-20 19:26:69589Okvrtiae NxqorpnNSQHFSLLOU9388-61-34 19:26:00 Test Item Value Reference Range Interpretation Comments MCH (test code = MCH) 33.4 pg 27.0-31.0 [facility] KwyauvfBTMYFUSLAH1713-56-93 19:26:0039.7[facility]annHEMATOLOGY 2016-03-31 19:26:0095.1[facility] YtmmhtsEQNXRIUCAY0841-72-00 19:26:009.2[facility] YrnjiyjPXRLZXGYUI0122-98-43 19:26:004.17[facility] CvwfbpxXGRDCIVLJT8278-53-79 19:26:0013.9[facility] JyksurdOAHJEMPNKT0583-61-84 19:26:000.82[facility] XFBSMTYCQU2427-23-05 19:26:00 Test Item Value Reference Range Interpretation Comments PROTIME (test code = PROTIME) 11.6 s 12.0-14.7 [facility] NhgzdumHVSXINZMZS6991-84-15 19:26:00 Test Item Value Reference Range Interpretation Comments aPTT (test code = aPTT) 23.0 s 22.9-35.8 [facility] VjinnwzORIIWEFABA3025-14-13 19:26:006.3[facility]annHEMATOLOGY 2016-03-31 19:26:000.5[facility] LnnwxgaETDJGKMZYD6434-14-04 19:26:0028.5[facility] UdbyxgsZTKNVRGCTR9557-42-44 19:26:0054.8[facility] NujlbeiWZSXNLGTOU8528-07-95 19:26:009.9[facility] KyjqowiUXQXHWMSNH6698-63-48 19:26:002.6[facility] RRUZBDUIOH4733-77-66 19:26:005.1[facility] DffpxyaWOMQVIXPLV5662-34-86 19:26:000.9 [facility] XlbhgrwIXGCKKASSU5199-52-54 19:26:000.6[facility] ENZYMES 2016-03-31 19:26:99371Blhstuwb [facility]annCARDIAC GXCRBOY8575-12-45 19:26:001.5 [facility] OUUYYZC6224-34-24 19:26:00<0.02[facility] CARDIAC KYMOVVA7602-12-32 19:26:001.0[facility] BZSZNBX0362-56-30 19:26:0075[facility]annCHE[facility] RLFVS9261-02-61 19:26:0049[facility]CHE[facility] UOQQG1505-70-29 19:26:001.0[facility]annCHE[facility] KEJAI0248-48-80 19:26:003.7 [facility] ZSXTJ3056-20-45 19:26:0012[facility]annCHE[facility] PANEL 2016-03-31 19:26:0018.2[facility]annCHE[facility] NSZJH5891-44-26 19:26:0029[facility]CHE[facility] MFUIF7427-03-45 19:26:007.5[facility]annCHE[facility] BCCUL8257-55-53 19:26:000.5[facility]CHE[facility] FBCDX9048-08-84 19:26:009.5[facility]annCHE[facility] KCVQB6800-59-91 19:26:0024[facility]annCHE[facility] URXHC7443-72-60 19:26:0097 [facility] QOIDY2015-78-45 19:26:004.2[facility]annCHEM PANEL 2016-03-31 19:26:77635Dqinnspe HermannCHEM JCPRZ4230-28-24 19:26:001.17[facility]annCHE[facility] CQNYY2440-12-01 19:26:0014[facility]annCHE[facility] PPLYC9772-59-51 19:26:10185Dxzcdywh HermannCHEM QCHMX1250-99-67 19:26:0055[facility]annCHE[facility] JKQEU3158-25-71 19:26:003.8[facility]annCHE[facility] NLJAR6147-23-36 19:26:0073 [facility] BozcfwuFPBSKNZBUH2194-11-19 19:26:0035.1[facility]annHEMATOLOGY 2016-03-31 19:26:0012.8[facility] HzscfeyLVPHFLDJKY3991-23-79 19:26:009.6[facility] JlmhuzvVQQFCMHRWP2118-88-70 19:26:79365Zbzxmmig VpuvawvJBVWVGWKJH4800-78-45 19:26:00 Test Item Value Reference Range Interpretation Comments MCH (test code = MCH) 33.4 pg 27.0-31.0 [facility] XjlhhmyXNHJATQTEQ8700-40-24 19:26:0039.7[facility]annHEMATOLOGY 2016-03-31 19:26:0095.1[facility] KhxrctgACUBJQIHWA9935-71-07 19:26:009.2[facility] HhpaywrTTSYWQCQXB1468-91-26 19:26:004.17[facility] DyrqugwJRPDVVWWRB4412-79-83 19:26:0013.9[facility] YertvfjEMWFYPTRYU7287-74-67 19:26:000.82[facility] LJJDBGVFBE0041-18-19 19:26:00 Test Item Value Reference Range Interpretation Comments PROTIME (test code = PROTIME) 11.6 s 12.0-14.7 [facility] LuascehHCZBONLCMR6332-56-39 19:26:00 Test Item Value Reference Range Interpretation Comments aPTT (test code = aPTT) 23.0 s 22.9-35.8 [facility] SuqfghlDUEVYDGIHT8867-39-51 19:26:006.3[facility]annHEMATOLOGY 2016-03-31 19:26:000.5[facility] LetolvzDEDWQJLHNO1929-14-83 19:26:0028.5[facility] PgkutvbRPEBETWAJG5929-71-44 19:26:0054.8[facility] HnxdolpMOLVFBJICJ8972-37-61 19:26:009.9[facility] VfrcsthBCXEUPVHHM0694-96-52 19:26:002.6[facility] BWUUOEGTQP1350-73-09 19:26:005.1[facility] FpbmqcqIRCEAWYSVX8170-17-20 19:26:000.9 [facility] CjrtlaoYYOROJZHXH6735-67-17 19:26:000.6[facility]annCARD[facility]AC ENZYMES 2016-03-31 19:26:06016Ccjzkkom HermannCARDIAC AFXZDIZ5554-38-32 19:26:001.5 [facility] SMNIALE7775-68-95 19:26:00<0.02[facility] CARDIAC UVACWLE9729-71-71 19:26:001.0[facility] TMDGDSE7379-26-73 19:26:0075[facility]annCHEM OSJWT9679-42-36 19:26:0049[facility]annCHE[facility] PILKB1806-52-60 19:26:001.0[facility]annCHE[facility] YYXFX2064-90-43 19:26:003.7 [facility]CHE[facility] ZTHJE3977-84-12 19:26:0012[facility]annCHEM PANEL 2016-03-31 19:26:0018.2[facility]annCHE[facility] GDWTK2391-48-80 19:26:0029[facility]annCHE[facility] VLBOK3584-26-28 19:26:007.5[facility]annCHE[facility] FYCEA6320-95-91 19:26:000.5[facility]annCHE[facility] CJEJS7800-94-16 19:26:009.5[facility]annCHE[facility] SNQZO4562-14-19 19:26:0024[facility]annCHE[facility] MPRIK7450-56-27 19:26:0097 [facility] SLQRC5713-77-46 19:26:004.2[facility]annCHEM PANEL 2016-03-31 19:26:20743Dnzfulea HermannCHEM CBEGH2442-51-73 19:26:001.17[facility]annCHEM AFABY0747-60-01 19:26:0014[facility]annCHEM FHYZT9584-45-43 19:26:33642Vqoqqovf HermannCHEM RHRSX8913-26-94 19:26:0055[facility]annCHEM GJLIH9104-17-99 19:26:003.8[facility]annCHEM AJFAA3432-93-45 19:26:0073 [facility] DledkhdEPSZORBJOZ7128-86-82 19:26:0035.1[facility]annHEMATOLOGY 2016-03-31 19:26:0012.8[facility] OxtqzjxREVFUNJIWM3074-66-99 19:26:009.6[facility] OlvybqqWZAJOHATWA5790-84-76 19:26:32148Ogshplxh CgcvbctEFSEDCXCJA5779-75-83 19:26:00 Test Item Value Reference Range Interpretation Comments MCH (test code = MCH) 33.4 pg 27.0-31.0 [facility] GeiswgpWANJBUEMTO8723-58-91 19:26:0039.7[facility]HE[facility]Y 2016-03-31 19:26:0095.1[facility] HcmrjmgKKQQZANAKW6949-46-14 19:26:009.2[facility] HhtkrhdVCWTVMHXQW1677-86-46 19:26:004.17[facility] PwhlqdzHTOUUJNHVG5363-00-83 19:26:0013.9[facility] AeymfezTYKDNGXFQF1336-76-35 19:26:000.82[facility] WLNDFZOGFE4410-63-60 19:26:00 Test Item Value Reference Range Interpretation Comments PROTIME (test code = PROTIME) 11.6 s 12.0-14.7 [facility] GakkvspTCNCBPLVNL2111-11-65 19:26:00 Test Item Value Reference Range Interpretation Comments aPTT (test code = aPTT) 23.0 s 22.9-35.8 [facility] WfekhknYWGBDCCINJ2506-29-45 19:26:006.3[facility]annHEMATOLOGY 2016-03-31 19:26:000.5[facility] UtgfzhtXXITQJVOKO1917-35-85 19:26:0028.5[facility] LvifbzkTRSPOGTMKZ1974-45-95 19:26:0054.8[facility] SkwqtwzWAPCHRFLTJ4965-29-21 19:26:009.9[facility] VgyueppKPZCEPNXMB2490-90-13 19:26:002.6[facility] FBUVWKKAFR6835-60-71 19:26:005.1[facility] ZqxadewIMNZUZOSDR2468-42-21 19:26:000.9 [facility] ImazztoLRAVKFKVCK8089-88-21 19:26:000.6[facility]annCARD[facility]AC ENZYMES 2016-03-31 19:26:71245Eghoptoh HermannCARDIAC JWLVNRJ7701-50-55 19:26:001.5 [facility] WBBKTHF3109-34-20 19:26:00<0.02[facility] CARDIAC OHATKVP6181-06-54 19:26:001.0[facility] RMJWPPW4365-67-45 19:26:0075[facility]annCHEM PRAWO1649-71-57 19:26:0049[facility]annCHEM ZOWCV9666-44-82 19:26:001.0[facility]annCHEM WNSZL7105-27-30 19:26:003.7 [facility]CHE[facility] BBDJU3148-27-11 19:26:0012[facility]annCHEM PANEL 2016-03-31 19:26:0018.2[facility]annCHE[facility] CWPYM1358-92-30 19:26:0029[facility]annCHE[facility] LTHGY5408-19-19 19:26:007.5[facility]annCHE[facility] WNANH3312-10-32 19:26:000.5[facility]annCHE[facility] AFTXT2089-14-02 19:26:009.5[facility]annCHE[facility] ILAJX8951-79-23 19:26:0024[facility]annCHE[facility] VQKCB2600-19-33 19:26:0097 [facility]CHE[facility] SNYKO0184-67-43 19:26:004.2[facility]annCHEM PANEL 2016-03-31 19:26:66100Rwojnlef HermannCHEM DSBWE2385-21-17 19:26:001.17[facility]annCHEM SPBYJ0985-88-78 19:26:0014[facility]annCHEM MTKAH4891-54-46 19:26:86801Namqbrjg HermannCHEM EGOCE5364-50-96 19:26:0055[facility]annCHEM WAHIL8511-96-57 19:26:003.8[facility]annCHEM LPZQX7426-94-25 19:26:0073 [facility] HlnykmrRKZOCBREWL5329-82-56 19:26:0035.1[facility]annHEMATOLOGY 2016-03-31 19:26:0012.8[facility] KjyvcbpLBYVERTCBK6797-62-84 19:26:009.6[facility] IyyrnovEATEIACNDZ1594-92-19 19:26:59781Hwlnuykv XcuvqqpVZFWCSGIMP9571-10-58 19:26:00 Test Item Value Reference Range Interpretation Comments MCH (test code = MCH) 33.4 pg 27.0-31.0 [facility] KwfhujmJUNTLECAFQ6162-21-23 19:26:0039.7[facility]annHEMATOLOGY 2016-03-31 19:26:0095.1[facility] GakkjvoLHDYSOAKDC8501-57-63 19:26:009.2[facility] GopardgDPYERLFXFY2796-46-35 19:26:004.17[facility] KzywyadWERKGDTGCH9213-15-16 19:26:0013.9[facility] EcwiygdTBKUWCNBHG2748-48-40 19:26:000.82[facility] VZPXJDABUR7477-62-81 19:26:00 Test Item Value Reference Range Interpretation Comments PROTIME (test code = PROTIME) 11.6 s 12.0-14.7 [facility] WvzzfitQSWWWYOJAZ4234-91-62 19:26:00 Test Item Value Reference Range Interpretation Comments aPTT (test code = aPTT) 23.0 s 22.9-35.8 [facility] GbeinjyFVPDUPADFM3211-49-52 19:26:006.3[facility]annHEMATOLOGY 2016-03-31 19:26:000.5[facility] NcvxnqjJVBCCQQBBJ8335-08-02 19:26:0028.5[facility] DchinplKRBFWURNZC7636-43-22 19:26:0054.8[facility] EhckdxiJUTCTUAOJR5346-17-45 19:26:009.9[facility] NrltpjuZHHVLWSRJX5656-23-02 19:26:002.6[facility] YODNWDYODB4379-37-84 19:26:005.1[facility] VbriohcYCIICNPDEJ0071-23-31 19:26:000.9 [facility] VzuqddkBZFLQHFLDC8988-26-76 19:26:000.6[facility]annCARDIAC ENZYMES 2016-03-31 19:26:71297Uniufxpu HermannCARDIAC BQSXMAY7046-06-25 19:26:001.5 [facility] DBKCAJB1019-49-91 19:26:00<0.02[facility] CARDIAC DLUYDAL3690-92-97 19:26:001.0[facility]annCARDIAC ATMYCGW4928-43-78 19:26:0075[facility]annCHEM WXSLJ5860-26-39 19:26:0049[facility]annCHEM TEDMO1088-84-23 19:26:001.0[facility]annCHEM MBWKU4819-50-43 19:26:003.7 [facility]annCHE[facility] OAXRT5618-02-41 19:26:0012[facility]annCHEM PANEL 2016-03-31 19:26:0018.2[facility]annCHEM TRZOF9113-51-10 19:26:0029[facility]annCHEM XYJTS4836-56-73 19:26:007.5[facility]annCHEM NIPQM1037-59-63 19:26:000.5[facility]annCHEM JUTVT9447-01-13 19:26:009.5[facility]annCHEM IEKTN6859-30-79 19:26:0024[facility]annCHEM HHRZE6674-74-07 19:26:0097 [facility]annCHE[facility] EISMN8580-80-96 19:26:004.2[facility]annCHEM PANEL 2016-03-31 19:26:10394Fmgqqjan HermannCHEM UCGHL6252-54-85 19:26:001.17[facility]annCHEM VEMPY2780-50-49 19:26:0014[facility]annCHEM EXFTV9377-17-70 19:26:02984Pfkcblhu HermannCHEM KSGSU2302-44-45 19:26:0055[facility] HermannCHEM COLIZ5111-70-47 19:26:003.8[facility]annCHEM PLWMF1027-94-40 19:26:0073 [facility] FsffgkzHYHKOJZINI3313-20-44 19:26:0035.1[facility]annHEMATOLOGY 2016-03-31 19:26:0012.8[facility] OiysezqKHJEFFLENZ8138-29-69 19:26:009.6[facility] ZcrutijLUETJLMODH5298-86-91 19:26:58581Yfawunti WaqlizuFWBFSQBJDB2180-10-12 19:26:00 Test Item Value Reference Range Interpretation Comments MCH (test code = MCH) 33.4 pg 27.0-31.0 [facility] PwpvptqNVHBRVKQTE6800-75-14 19:26:0039.7[facility]annHEMATOLOGY 2016-03-31 19:26:0095.1[facility] AbefunpWMPONUJJOR6594-56-58 19:26:009.2[facility] TyfqzovKQMKVTKJQW3444-83-07 19:26:004.17[facility] WvkrvxpVMCZSYVMZM1693-08-88 19:26:0013.9[facility] YzsamsnRQXYOQBIXO4429-05-04 19:26:000.82[facility] LYGGQFFJBE3280-11-84 19:26:00 Test Item Value Reference Range Interpretation Comments PROTIME (test code = PROTIME) 11.6 s 12.0-14.7 [facility] MdpjmljZDEKXGBWSO5985-84-04 19:26:00 Test Item Value Reference Range Interpretation Comments aPTT (test code = aPTT) 23.0 s 22.9-35.8 [facility] UqzlptqGVRYBZMZEA7654-44-34 19:26:006.3[facility]annHEMATOLOGY 2016-03-31 19:26:000.5[facility] XvgxkpsGWVFXPISZZ4002-85-80 19:26:0028.5[facility] CrmwjlrWIWYKRFPFI2142-04-34 19:26:0054.8[facility] PvbwidoBLSUJUKKLU6837-96-51 19:26:009.9[facility] MhnzsroJHSXQQRAWB5754-50-80 19:26:002.6[facility] LCFDXLYJLL2863-70-99 19:26:005.1[facility] UesfudmFBUCETQGVY6817-27-12 19:26:000.9 [facility] NzsmjldEHYIONIQVE4364-73-50 19:26:000.6[facility]
[2021-11-30] MEDS ORDERED: ONDANSETRON 4 MG/2 ML VIAL ONE (00:33)
[2021-11-30] MEDS ORDERED: MEPERIDINE HCL 25 MG/ML SYR ONE ×2 (00:33→04:02)
[2021-11-30] MEDS ORDERED: ACETAMINOPHEN 325 MG TABLET ONE (00:33)
[2021-11-30] MEDS ORDERED: NA CHLORIDE 0.9% 1,000 ML ONE (00:33)
[2021-11-30 01:11] LABS: Absolute Lymphocytes (CBC) 1.2 K/uL (0.7-4.9); Lymphocytes % 12.5 % (15.3-44.8); MPV 8.5 fL (7.6-11.3); RBC Red Blood Cell Count 3.04 M/uL (4.33-5.43)
[2021-11-30 01:14] LABS: Albumin 3.4 g/dL (3.4-5.0); Bilirubin Total 0.4 mg/dL (0.2-1.0); Potassium 3.9 mmol/L (3.5-5.1)
--- NOTE | 2021-11-30 01:56 | EDPHYS ---
Physician Documentation [facility] Name: Mack Charles Age: 56 yrs Sex: Male : 1965 Arrival Date: 11/29/2021 Time: 23:20 Bed 5 Private MD: ED Physician Tommy Horton HPI: 11/30 00:02 This 56 yrs old Male presents to ER via Ambulatory with complaints of Fever, Abdominal rn Pain. 00:02 The patient presents with abdominal pain in the left lower quadrant. Onset: The rn symptoms/episode began/occurred today. The symptoms radiate to back. Associated signs and symptoms: Pertinent positives: fever, nausea, Pertinent negatives: blood in stools, chest pain, constipation, diarrhea, dysuria. The symptoms are described as sharp, stabbing. Modifying factors: The symptoms are alleviated by nothing, the symptoms are aggravated by movement, touching the area. Severity of pain: At its worst the pain was moderate in the emergency department the pain is unchanged. The patient has not experienced similar symptoms in the past. The patient has not recently seen a physician. Pt reports fever, abd pain, nausea, began earlier today, no blood in stool. Reports gallbladder removed and 1 episode of pancreatitis. Not heavy drinker. No trauma. Reports pain vague and hurt a lot when driving here.. Historical: - Allergies: 11/29 23:41 AYANNA INHIBITORS (Hives); jb4 23:41 amlodipine; jb4 23:41 Bees (Anaphylaxis); jb4 23:41 Morphine; jb4 23:41 Trazodone (Hives); jb4 - PMHx: 23:41 acid reflux; Hypertension; Hyperlipidemia; Diabetes - IDDM; Hypothyroidism; jb4 - PSHx: 23:41 Cholecystectomy; jb4 - Immunization history:: Immunization history: Adult Immunizations up to date. - Social history:: Smoking status: Patient/guardian denies using tobacco. - Family history:: not pertinent. - Hospitalizations: : No recent hospitalization is reported. ROS: 11/30 00:02 Constitutional: + fever Eyes: Negative for injury, pain, redness, and discharge, Neck: rn Negative for injury, pain, and swelling, Cardiovascular: Negative for chest pain, palpitations, and edema, Respiratory: Negative for shortness of breath, cough, wheezing, and pleuritic chest pain, Abdomen/GI: + abd pain/nausea Back: + mid back pain : Negative for injury, bleeding, discharge, and swelling, MS/Extremity: Negative for injury and deformity, Skin: Negative for injury, rash, and discoloration, Neuro: Negative for headache, weakness, numbness, tingling, and seizure. Exam: 00:02 Constitutional: This is a well developed, well nourished patient who is awake, alert, rn and in no acute distress. Head/Face: Normocephalic, atraumatic. Cardiovascular: Regular rate and rhythm. No pulse deficits. Respiratory: No increased work of breathing, no retractions or nasal flaring. Abdomen/GI: soft, + mid abd tenderness, no rebound or masses Skin: Warm, dry MS/ Extremity: Pulses equal, no cyanosis. Neuro: Awake and alert, GCS 15 Vital Signs: 11/29 23:39 BP 140 / 90; Pulse 97; Resp 18; Temp 99.9(TE); Pulse Ox 100% on R/A; Weight 81.65 kg jb4 (R); Height 5 ft. 11 in. (180.34 cm); Pain 6/10; 11/30 00:49 BP 147 / 75; Pulse 88; Resp 18 S; Pulse Ox 99% on R/A; as6 01:36 BP 133 / 75; Pulse 93; Resp 18 S; Pulse Ox 100% on R/A; as6 02:51 BP 135 / 82; Pulse 76; Resp 18 S; Pulse Ox 100% on R/A; as6 11/29 23:39 Body Mass Index 25.11 (81.65 kg, 180.34 cm) jb4 MDM: 11/29 23:23 Patient medically screened. rn 11/30 01:55 Differential diagnosis: bowel obstruction, diverticulitis, gastritis, gastroesophageal rn reflux disease, non-specific abd pain, pancreatitis, Peptic Ulcer Disease. Data reviewed: vital signs, nurses notes, lab test result(s), radiologic studies, CT scan, and as a result, I will admit patient. Counseling: I had a detailed discussion with the patient and/or guardian regarding: the historical points, exam findings, and any diagnostic results supporting the discharge/admit diagnosis, lab results, radiology results, the need for further work-up and treatment in the hospital. Response to treatment: the patient's symptoms have mildly improved after treatment, and as a result, I will admit patient. Admission orders: after a detailed discussion of the patient's condition and case, the admit orders are written by me. ED course: . 02:39 ED course: Just got off phone with [employer] system less than 20 min ago, for another rn patient, at capacity, so did not try again given short time period. Beside that, patient states his GI doctor is at [facility] and requested [facility] transfer. [facility] at capacity as well. Trying sergey. . 11/29 23:46 Order name: CBC with Diff; Complete Time: 01:33 rn 11/29 23:46 Order name: CMP; Complete Time: : rn 11/29 23:46 Order name: Lipase; Complete Time: : rn 11/29 23:46 Order name: CT Abd/Pelvis - IV Contrast Only rn 11/30 02:41 Order name: SARS-COV-2 RT PCR (Document "Date of Onset" if Symptomatic) rn 11/29 23:46 Order name: IV Saline Lock; Complete Time: 00:43 rn 11/29 23:46 Order name: Labs collected and sent; Complete Time: 00:43 rn Administered Medications: 00:40 Drug: NS 0.9% 1000 ml Route: IV; Rate: 1 bolus; Site: right antecubital; as6 02:52 Follow up: Response: No adverse reaction; IV Status: Completed infusion; IV Intake: as6 1000ml 00:40 Drug: Zofran (Ondansetron) 4 mg Route: IVP; Site: right antecubital; as6 02:52 Follow up: Response: No adverse reaction as6 00:40 Drug: Demerol (meperidine) 25 mg Route: IVP; Site: right antecubital; as6 02:52 Follow up: Response: No adverse reaction; RASS: Alert and Calm (0) as6 00:43 Drug: Tylenol 650 mg Route: PO; as6 02:52 Follow up: Response: No adverse reaction as6 04:00 Drug: Demerol (meperidine) 25 mg Route: IVP; Site: right antecubital; as6 04:02 Follow up: Response: No adverse reaction; RASS: Alert and Calm (0) as6 Disposition Summary: 11/30/21 02:38 Transfer Ordered Transfer [facility] rn Reason: Higher level of care rn Condition: Stable(11/30/21 02:38) rn Problem: new(11/30/21 02:38) rn Symptoms: have improved(11/30/21 02:38) rn Accepting Physician: Dr. Melara(11/30/21 04:37) vc1 Diagnosis - Other acute pancreatitis without necrosis or infection - With pancreatic ductal rn dilatation Forms: - Medication Reconciliation Form rn - SBAR form rn Signatures: Dispatcher [employer] EDMS Mo Harding, PA PA Tommy Pacheco MD MD rn Bryson, James, RN RN jb4 Gama Ochoa RN RN as6 Suad Sanders, RN RN vc1 Corrections: (The following items were deleted from the chart) 02:14 01:56 Telemetry/MedSurg (Inpatient) rn erica 02:14 01:56 rn erica 02:32 01:56 Inpatient Admission rn rn 02:32 01:56 Tomasa Moy rn rn 02:32 01:56 Stable rn rn 02:32 01:56 new rn rn 02:32 01:56 have improved rn rn 02:32 01:56 Standard rn rn 02:32 01:56 Idiopathic acute pancreatitis without necrosis or infection rn rn 02:32 02:[address] [facility] ER HOLD baldom rn 02:32 02:14 ERHOLD- erica rn 03:10 02:38 Dr. chapman rn 04:37 03:10 Dr. Melara rn vc1
--- NOTE | 2021-11-30 01:56 | ER ---
Nurse's Notes [facility] Name: Mack Charles Age: 56 yrs Sex: Male : 1965 Arrival Date: 11/29/2021 Time: 23:20 Bed 5 Private MD: Diagnosis: Other acute pancreatitis without necrosis or infection-With pancreatic ductal dilatation Presentation: 11/29 23:39 Chief complaint: Patient states: I started having abdominal pain yesterday after noon. jb4 It generalized to my entire stomach, moving to my central lower back and now to my shoulder blades. Coronavirus screen: At this time, the client does not indicate any symptoms associated with coronavirus-19. Ebola Screen: No symptoms or risks identified at this time. Initial Sepsis Screen: Does the patient meet any 2 criteria? No. Patient's initial sepsis screen is negative. Does the patient have a suspected source of infection? No. Patient's initial sepsis screen is negative. Risk Assessment: Do you want to hurt yourself or someone else? Patient reports no desire to harm self or others. Onset of symptoms was November 29, 2021. Transition of care: patient was not received from another setting of care. 23:39 Method Of Arrival: Ambulatory jb4 23:39 Acuity: [place] 3 jb4 Historical: - Allergies: 23:41 AYANNA INHIBITORS (Hives); jb4 23:41 amlodipine; jb4 23:41 Bees (Anaphylaxis); jb4 23:41 Morphine; jb4 23:41 Trazodone (Hives); jb4 - PMHx: 23:41 acid reflux; Hypertension; Hyperlipidemia; Diabetes - IDDM; Hypothyroidism; jb4 - PSHx: 23:41 Cholecystectomy; jb4 - Immunization history:: Immunization history: Adult Immunizations up to date. - Social history:: Smoking status: Patient/guardian denies using tobacco. - Family history:: not pertinent. - Hospitalizations: : No recent hospitalization is reported. Screenin/19 00:46 Abuse screen: Denies threats or abuse. Denies injuries from another. Nutritional as6 screening: No deficits noted. Tuberculosis screening: No symptoms or risk factors identified. Fall Risk None identified. Assessment: 00:35 General: Appears in no apparent distress. Behavior is calm, cooperative. Pain: as6 Complains of pain in epigastric area and right upper quadrant Pain radiates to left scapular area and right scapular area. Neuro: Level of Consciousness is awake, alert, obeys commands, Oriented to person, place, time, situation. Cardiovascular: JVD is absent Patient's skin is warm and dry. Respiratory: Respiratory effort is even, unlabored, Respiratory pattern is regular, symmetrical. GI: Reports upper abdominal pain, nausea, vomiting. 01:35 General: provider updated pt on plan of care . as6 Vital Signs: 11/29 23:39 BP 140 / 90; Pulse 97; Resp 18; Temp 99.9(TE); Pulse Ox 100% on R/A; Weight 81.65 kg jb4 (R); Height 5 ft. 11 in. (180.34 cm); Pain 12/22; 11/30 00:49 BP 147 / 75; Pulse 88; Resp 18 S; Pulse Ox 99% on R/A; as6 01:36 BP 133 / 75; Pulse 93; Resp 18 S; Pulse Ox 100% on R/A; as6 02:51 BP 135 / 82; Pulse 76; Resp 18 S; Pulse Ox 100% on R/A; as6 11/29 23:39 Body Mass Index 25.11 (81.65 kg, 180.34 cm) jb4 ED Course: 11/29 23:20 Patient arrived in ED. bp1 23:23 Tommy Horton MD is Attending Physician. rn 23:40 Triage completed. jb4 23:41 Arm band placed on right wrist. jb4 11/30 00:09 Gama Ochoa, JENNIFER is Primary Nurse. as6 00:35 Inserted saline lock: 20 gauge in right antecubital area, using aseptic technique. as6 Blood collected. 00:46 Bed in low position. Call light in reach. Side rails up X2. Pulse ox on. NIBP on. as6 01:40 CT Abd/Pelvis - IV Contrast Only In Process Unspecified. EDMS 01:56 Tomasa Moy MD is Hospitalizing Provider. rn 02:39 initiated a transfer with Libertad Morales from [facility]. mw2 02:[address] Horton with the Hospitalist Dr. Arteaga from [facility]. mw2 03:06 administrative approval given by Libertad Morales/ patient has been accepted to [address]/ Dr. Lang accepted the patient in transfer/report to be called to [phone]. 03:20 [facility] ETA 30 - 35 minutes. mw2 04:02 No provider procedures requiring assistance completed. Patient transferred, IV remains as6 in place. Administered Medications: 00:40 Drug: NS 0.9% 1000 ml Route: IV; Rate: 1 bolus; Site: right antecubital; as6 02:52 Follow up: Response: No adverse reaction; IV Status: Completed infusion; IV Intake: as6 1000ml 00:40 Drug: Zofran (Ondansetron) 4 mg Route: IVP; Site: right antecubital; as6 02:52 Follow up: Response: No adverse reaction as6 00:40 Drug: Demerol (meperidine) 25 mg Route: IVP; Site: right antecubital; as6 02:52 Follow up: Response: No adverse reaction; RASS: Alert and Calm (0) as6 00:43 Drug: Tylenol 650 mg Route: PO; as6 02:52 Follow up: Response: No adverse reaction as6 04:00 Drug: Demerol (meperidine) 25 mg Route: IVP; Site: right antecubital; as6 04:02 Follow up: Response: No adverse reaction; RASS: Alert and Calm (0) as6 Medication: 01:37 VIS not applicable for this client. as6 Intake: 02:52 IV: 1000ml; Total: 1000ml. as6 Outcome: 01:56 Decision to Hospitalize by Provider. rn 02:38 ER care complete, transfer ordered by . rn 04:02 Transferred by ground EMS to [facility], Transfer form completed. as6 04:02 Condition: stable 04:02 Instructed on the need for transfer. 04:37 Patient left the ED. vc1 Signatures: Dispatcher [employer] EDMS Tommy Horton MD MD rn Bryson, James, RN RN jb4 Mary Coelho mw2 Susan Varner Ashby RN RN as6 Suad Sanders RN RN vc1
[2021-11-30 04:44] VITALS: TEMP 99.9
[2021-11-30 04:46] VITALS: O2SAT 100
[2021-11-30 04:52] VITALS: BP 135/82
--- NOTE | 2021-11-30 11:42 | RAD REPORT ---
EXAM DESCRIPTION: CT - Abdomen Pelvis W Contrast - 11/30/2021 4:21 am CLINICAL HISTORY: The patient is 56 years old and is Male; Abdominal pain, acute, nonlocalized TECHNIQUE: Axial computed tomography images of the abdomen and pelvis with intravenous contrast. S agittal and coronal reformatted images were created and reviewed. This CT exam was performed using one or more of the following dose reduction techniques: automated exposure control, adjustment of t he mA and/or kV according to patient size, and/or use of iterative reconstruction technique. COMPARISON: No relevant prior studies available. FINDINGS: LUNG BASES: Unremarkable. No mass. No consolidation. ABDOMEN: LIVER: Unremarkable. No mass. GALLBLADDER AND BILE DUCTS: Surgical clips are present in the right upper quadrant, consistent w ith previous cholecystectomy. PANCREAS: Peripancreatic inflammation and stranding is present. Dilatation of the pancreatic brandon t is noted. Calcifications within the pancreatic near the pancreatic head are present. SPLEEN: Unremarkable. ADRENALS: Unremarkable. No mass. KIDNEYS AND URETERS: Unremarkable. The kidneys enhance symmetrically. No obstructing renal or ur eteral calculus is seen. No hydronephrosis or hydroureter. No perinephric fluid or stranding. STOMACH AND BOWEL: In the stomach is distended with food contents. The small bowel is normal in caliber. Stool is present throughout colon. There is no mucosal thickening or evidence of bowel obstr uction. PELVIS: APPENDIX: No findings to suggest acute appendicitis. BLADDER: The bladder is moderately distended. REPRODUCTIVE: Unremarkable as visualized. ABDOMEN and PELVIS: INTRAPERITONEAL SPACE: Unremarkable. No free air. No significant fluid collection. BONES/JOINTS: Minimal degenerative change at L2-L3 is present. There is no acute fracture. SOFT TISSUES: The soft tissues are normal. VASCULATURE: Multiple calcified phleboliths are present within the pelvis. No abdominal aortic aneurysm. LYMPH NODES: Unremarkable. No enlarged lymph nodes. IMPRESSION: Findings consistent with acute pancreatitis. There is pancreatic ductal dilatation secon yadira to multiple calcifications within the pancreatic duct. Electronically signed by: Amisha Gould MD 11/30/2021 1:51 AM CDT Due to temporary technical issues with the PACS/Fluency reporting system, reports are being signed by the in house radiologist without review as a courtesy to ensure prompt reporting. The interpreting r adiologist is fully responsible for the content of the report.
== END 2021-11-30 04:37 | disposition short-term general hospital (02) ==
LOC: ER 23:17
DX: K85.90 Acute pancreatitis without necrosis or infection, unspecified (principal); K86.89 Other specified diseases of pancreas; E11.9 Type 2 diabetes mellitus without complications; E78.5 Hyperlipidemia, unspecified; I10 Essential (primary) hypertension; Z20.822 Contact with and (suspected) exposure to COVID-19; Z88.5 Allergy status to narcotic agent; Z88.8 Allergy status to other drugs, medicaments and biological substances; Z91.030 Bee allergy status
CPT/HCPCS: 96361; 85025; 36415; 83690; 80053; 74177; 96375; 96374; 99285; U0003; Q9967; J2175 ×2; J7030; J2405

== ENCOUNTER 2024-10-07 18:47 | Emergency (ER) | payer BC ==
--- NOTE | 2024-10-07 20:28 | RAD REPORT ---
EXAMINATION: UPPER EXTREMITY VENOUS UNILATE CLINICAL INDICATION: Left arm pain TECHNIQUE: Complete bilateral duplex sonography of the left upper extremity veins was performed. The examination included compression for vein patency, color Doppler imaging and flow augmentation in response to distal compression of the internal jugular,, subclavian, axillary, brachial, radial, ulnar, cephalic and basilic veins. .Grayscale, color and spectral analysis performed on all vessels COMPARISON: No prior exam. FINDINGS: The left internal jugular, subclavian, axillary, brachial, basilic, cephalic, radial and ulnar veins are generally compressible and demonstrate augmentation. Color Doppler demonstrates good flow. IMPRESSION: No evidence of venous thrombus left upper extremity
[2024-10-07] MEDS ORDERED: dexAMETHasone 10 MG/ML VIAL ONE (20:37)
[2024-10-07] MEDS ORDERED: KETOROLAC 30 MG/ML INJ ONE (20:37)
--- NOTE | 2024-10-07 20:42 | EDPHYS ---
Physician Documentation [facility] [place], [place] Name: Mack Charles Age: 59 yrs Sex: Male : 1965 Arrival Date: 10/07/2024 Time: 18:47 Bed 12 Private MD: ED Physician Farrukh Pisano HPI: 10/07 19:24 This 59 yrs old Male presents to ER via Unassigned with complaints of Arm Pain, Left kb arm. 19:24 Pt is a 59 year old male who presents for pain, numbness and loss of strength in left kb arm that started a couple of days ago and got worse today. Denies injury. . Historical: - Allergies: 19:28 AYANNA INHIBITORS (Hives); iw 19:28 amlodipine; iw 19:28 Bees (Anaphylaxis); iw 19:28 Morphine; iw 19:28 Trazodone (Hives); iw 19:29 Hydrochlorothiazide; kb 19:29 Insulin Detemir; kb 19:29 empagliflozin; kb 19:29 bisoprolol-hydrochlorothiazide; kb - PMHx: 19:28 Diabetes - IDDM; acid reflux; Hypertension; Hyperlipidemia; Hypothyroidism; iw - PSHx: 19:28 Cholecystectomy; iw - Infectious Disease History:: Denies. ROS: 19:25 Constitutional: As per HPI kb Exam: 19:25 Constitutional: This is a well developed, well nourished patient who is awake, alert, kb and in no acute distress. Head/Face: Normocephalic, atraumatic. ENT: Moist Mucous membranes Cardiovascular: Regular rate Respiratory: Respirations even and unlabored. No increased work of breathing. Talking in full sentences Abdomen/GI: Soft, non-tender. No distention Skin: Warm, dry with normal turgor. Normal color. MS/ Extremity: Pulses equal, no cyanosis. Neurovascular intact. Full, normal range of motion. Neuro: Awake and alert, GCS 15, oriented to person, place, time, and situation. Vital Signs: 19:26 BP 144 / 86; Pulse 69; Resp 16; Temp 98.1; Pulse Ox 100% on R/A; iw MDM: 18:53 Medical Screening Exam initiated kb 19:33 Data reviewed: vital signs, nurses notes. kb 20:40 Differential diagnosis: tendonitis, radiculopathy, strain. Test considered but Not kb performed: Labs: cbc, cmp and trop considered but pt denies chest pain, arm pain is with use and worse in lower arm/hand.. X-ray: xray considered but pt has no bony tenderness, denies injury. Historians other than the Patient: Spouse/Significant Other: . Counseling: I had a detailed discussion with the patient and/or guardian regarding the historical points, exam findings, and any diagnostic results supporting the discharge/admit diagnosis, radiology results, the need for outpatient follow up, a family practitioner, to return to the emergency department if symptoms worsen or persist or if there are any questions or concerns that arise at home. 10/07 19:42 Order name: UPPER EXTREMITY VENOUS UNILATE; Complete Time: 20:34 EDMS Administered Medications: 20:47 Drug: Dexamethasone IM 10 mg IM once Route: IM; Site: right deltoid; vc1 20:57 Follow up: Response: No adverse reaction vc1 20:47 Drug: Ketorolac IM 30 mg IM once Route: IM; Site: left deltoid; vc1 20:57 Follow up: Response: No adverse reaction vc1 Disposition Summary: 10/07/24 20:42 Discharge Ordered Notes: Location: Home kb Condition: Stable kb Diagnosis - Pain in left arm kb Followup: kb - With: Emergency Department - When: As needed - Reason: Worsening of condition Followup: kb - With: Private Physician - When: 2 - 3 days - Reason: Recheck today's complaints, Continuance of care, Re-evaluation by your physician Discharge Instructions: - Discharge Summary Sheet kb - Musculoskeletal Pain kb - Pinched Nerve kb Forms: - Medication Reconciliation Form kb - Antibiotic Education kb - Prescription Opioid Use kb - Patient Portal Instructions kb - Leadership Thank You Letter kb Prescriptions: - Diclofenac Sodium 75 mg Oral tablet, delayed release (enteric coated) - take 1 tablet ORAL route 2 times per day As needed; 30 tablet; Refills: 0, kb Product Selection Permitted - orphenadrine citrate 100 mg Oral Tablet Sustained Release - take 1 tablet ORAL route 2 times per day As needed; 20 tablet; Refills: 0, kb Product Selection Permitted Signatures: Dispatcher [employer] Joan Hernández FNP-C FNP-Ckb Williams, Irene, RN RN Suad Sanders RN RN vc1 Corrections: (The following items were deleted from the chart) 19:42 19:28 Extremity Venous Uni [email or web address] ordered. EDMS EDMS
--- NOTE | 2024-10-07 20:42 | ER ---
Nurse's Notes [facility] Name: Mack Charles Age: 59 yrs Sex: Male : 1965 Arrival Date: 10/07/2024 Time: 18:47 Bed 12 Private MD: Diagnosis: Pain in left arm Presentation: 10/07 19:26 Chief complaint: Patient states: left arm pain X 1 days, denies injury, feels numb, can iw move the arm and hand but it is painful when he tried to hold or lift anything. Coronavirus screen: At this time, the client does not indicate any symptoms associated with coronavirus-19. Ebola Screen: No symptoms or risks identified at this time. Initial Sepsis Screen: Does the patient meet any 2 criteria? No. Patient's initial sepsis screen is negative. Does the patient have a suspected source of infection?. Risk Assessment: Do you want to hurt yourself or someone else? Patient reports no desire to harm self or others. Onset of symptoms was October 05, 2024. 19:26 Method Of Arrival: Ambulatory iw 19:28 Acuity: [place] 4 iw Triage Assessment: 20:57 General: Appears in no apparent distress. Behavior is calm, cooperative, appropriate vc1 for age. Pain: Complains of pain in left arm Pain does not radiate. Neuro: Level of Consciousness is awake, alert, obeys commands, Oriented to person, place, time, situation, Appropriate for age. Cardiovascular: Capillary refill < 3 seconds Patient's skin is warm and dry. Respiratory: Airway is patent Respiratory effort is even, unlabored, Respiratory pattern is regular, symmetrical. Derm: Skin is intact, is healthy with good turgor, Skin is dry, Skin is normal, Skin temperature is warm. Musculoskeletal: Range of motion: intact in all extremities, Reports pain in left arm. Historical: - Allergies: 19:28 AYANNA INHIBITORS (Hives); iw 19:28 amlodipine; iw 19:28 Bees (Anaphylaxis); iw 19:28 Morphine; iw 19:28 Trazodone (Hives); iw 19:29 Hydrochlorothiazide; kb 19:29 Insulin Detemir; kb 19:29 empagliflozin; kb 19:29 bisoprolol-hydrochlorothiazide; kb - PMHx: 19:28 Diabetes - IDDM; acid reflux; Hypertension; Hyperlipidemia; Hypothyroidism; iw - PSHx: 19:28 Cholecystectomy; iw - Infectious Disease History:: Denies. Screenin:56 [facility] ED Fall Risk Assessment (Adult) History of falling in the last 3 months, vc1 including since admission No falls in past 3 months (0 pts) Confusion or Disorientation No (0 pts) Intoxicated or Sedated No (0 pts) Impaired Gait No (0 pts) Mobility Assist Device Used No (0 pt) Altered Elimination No (0 pt) Score/Fall Risk Level 0 - 2 = Low Risk Oriented to surroundings, Maintained a safe environment, Educated pt \T\ family on fall prevention, incl call for assistance when getting out of bed. Abuse screen: Denies threats or abuse. Nutritional screening: No deficits noted. Tuberculosis screening: No symptoms or risk factors identified. Vital Signs: 19:26 BP 144 / 86; Pulse 69; Resp 16; Temp 98.1; Pulse Ox 100% on R/A; iw ED Course: 18:52 Patient arrived in ED. gm2 18:52 Joan Sheehan [facility]-C [facility]. kb 18:52 Farrukh Pisano MD is Attending Physician. kb 19:28 Triage completed. iw 20:04 UPPER EXTREMITY VENOUS UNILATE In Process Unspecified. EDMS 20:56 Suad Sanders, RN is Primary Nurse. vc1 20:56 No provider procedures requiring assistance completed. Patient did not have IV access vc1 during this emergency room visit. 20:57 Arm band placed on right wrist. vc1 20:58 Patient has correct armband on for positive identification. Provided Education on: vc1 medications; do not drive while taking muscle relaxer. Administered Medications: 20:47 Drug: Dexamethasone IM 10 mg IM once Route: IM; Site: right deltoid; vc1 20:57 Follow up: Response: No adverse reaction vc1 20:47 Drug: Ketorolac IM 30 mg IM once Route: IM; Site: left deltoid; vc1 20:57 Follow up: Response: No adverse reaction vc1 Medication: 20:56 VIS not applicable for this client. vc1 Outcome: 20:42 Discharge ordered by . kb 20:58 Discharged to home ambulatory, vc1 20:58 Condition: stable 20:58 Discharge instructions given to patient, Instructed on discharge instructions, follow up and referral plans. medication usage, Demonstrated understanding of instructions, follow-up care, medications, Prescriptions given X 2, 20:59 Patient left the ED. vc1 Signatures: Dispatcher [employer] EDJoan Weinberg, MAYELA-C MAYELA-Marylu Mix, RN RN iw Suad Sanders RN RN vc1 Marie Wilkinson 2
[2024-10-07 22:21] VITALS: BP 144/86; TEMP 98.1; O2SAT 100
== END 2024-10-07 20:59 | disposition home or self-care (01) ==
LOC: ER 18:47
DX: M79.602 Pain in left arm (principal); E11.9 Type 2 diabetes mellitus without complications; I10 Essential (primary) hypertension; E78.5 Hyperlipidemia, unspecified; E03.9 Hypothyroidism, unspecified; Z88.5 Allergy status to narcotic agent; Z88.8 Allergy status to other drugs, medicaments and biological substances; Z91.030 Bee allergy status
CPT/HCPCS: 93971; 96372; 99284; J1100

== ENCOUNTER 2025-03-31 18:55 | Emergency (ER) | payer BC ==
[2025-03-31 19:32] LABS: Absolute Lymphocytes (CBC) 2.3 K/uL (0.7-4.9); Hematocrit 32.0 % (39.6-49.0); Hemoglobin 11.0 g/dL (13.6-17.9); MCH 32.2 pg (27.0-35.0); MCHC 34.3 g/dL (32.0-36.0); MCV 94.1 fL (80-100); MPV 8.3 fL (7.6-11.3); Nucleated RBC Absolute Count 0.0 (0-0); Nucleated Red Blood Cells % 0.1 % (0-0); RBC Red Blood Cell Count 3.40 M/uL (4.33-5.43); White Blood Count 7.40 thou/uL (4.3-10.9)
[2025-03-31 19:37] LABS: PT Prothrombin Time 11.9 SECONDS (10-13.0); Protime INR 1.05
[2025-03-31] MEDS ORDERED: ASPIRIN 81 MG CHEWABLE TABLET ONE (19:47)
[2025-03-31] MEDS ORDERED: FENTANYL CITR 100 MCG/2 ML ONE (19:48)
[2025-03-31 19:51] LABS: ALT/SGPT 32.0 U/L (16-61); AST/SGOT 24.0 U/L (15-37); Albumin 4.0 g/dL (3.4-5.0); Albumin/Globulin Ratio 1.2 (1.1-1.8); Alkaline Phosphatase 29.0 U/L (45-117); Anion Gap 10.2 mEq/L (5.0-15.0); BUN Blood Urea Nitrogen 28.0 mg/dL (7-18); Bilirubin Indirect, Calculated 0.2 mg/dL (0.2-0.8); Globulin 3.4 g/dL (2.3-3.5); Glucose Level 130.0 mg/dL (74-106); Magnesium 1.4 mg/dL (1.6-2.4); Potassium 4.2 mEq/L (3.5-5.1); Troponin High Sensitivity 6.0 pg/mL (<58.9)
--- NOTE | 2025-03-31 20:26 | RAD REPORT ---
EXAM: Chest Single View HISTORY: 59 years Male CHEST PAIN COMPARISON: 12/04/2010 FINDINGS: LUNGS/PLEURA: The lungs are clear. No pleural effusions or pneumothorax. No pulmonary edema. CARDIAC/MEDIASTINUM: The cardiac silhouette is within normal limits. UPPER ABDOMEN: No significant abnormality. BONES: No acute abnormality. LINES/TUBES/OTHER: Neurostimulator overlies the right hemithorax. IMPRESSION: No evidence of acute cardiopulmonary disease.
[2025-03-31] MEDS ORDERED: METHOCARBAMOL 1,000 MG/10 ML VIAL ONE (20:29)
[2025-03-31] MEDS ORDERED: NA CHLORIDE 0.9% 100 ML ONE (20:29)
[2025-03-31] MEDS ORDERED: MAGNESIUM SULFATE 1 gm IVPB 1 GM/100 ML BAG IV ONE (20:30)
--- NOTE | 2025-03-31 21:09 | RAD REPORT ---
EXAMINATION: Head Brain Wo Cont CLINICAL INDICATION: Male, 59 years old.left arm pain TECHNIQUE: Axial CT images from the skull base to the vertex without intravenous contrast. Coronal an d sagittal reformatted images were created from the data set. One or more of the following dose reduction techniques were used: Automated exposure control, adjustment of the mA and/or kV according to patient size, and/or iterative reconstruction. Unless otherwise specified, incidental findings do not require dedicated imaging follow-up. [id number]. COMPARISON: No prior exams FINDINGS: INTRACRANIAL: No acute intracranial hemorrhage. No acute large vascular territory infarct. No hydroce phalus. No mass effect or midline shift. No significant white matter disease. VASCULATURE: No visualized abnormalities in the arteries or dural venous sinuses. SCALP/SKULL: No calvarial fracture identified. No acute soft tissue abnormality. SINUSES: The visualized paranasal sinuses are mostly clear. No significant mastoid fluid. IMPRESSION: No acute intracranial abnormality.
--- NOTE | 2025-03-31 23:26 | ER ---
Nurse's Notes [facility] Name: Mack Charles Age: 59 yrs Sex: Male : 1965 Arrival Date: 03/31/2025 Time: 18:55 Bed 20 Private MD: Diagnosis: Chest pain, unspecified;Bradycardia, unspecified Presentation: 03/31 19:18 Chief complaint: Patient states: c/o L arm pain that radiates from the axilla down to me1 his wrist. Pain is dull 2/10 with intermittent sharp, shooting pains down his arm that are 8/10. Pain to L arm started this morning. Reports some chest pressure that started just pts 2/10. Reports he has had left neck pain for months and had L carpal tunnel and ulnar nerve surgery in December 2024. c/o SHAH with intermittent nausea that started today. Coronavirus screen: Vaccine status: Patient reports receiving the 2nd dose of the covid vaccine. Ebola Screen: No symptoms or risks identified at this time. Initial Sepsis Screen: Does the patient meet any 2 criteria? No. Patient's initial sepsis screen is negative. Does the patient have a suspected source of infection? No. Patient's initial sepsis screen is negative. Risk Assessment: Do you want to hurt yourself or someone else? Patient reports no desire to harm self or others. Onset of symptoms is unknown. 19:18 Method Of Arrival: Ambulatory me1 19:18 Acuity: [place] 3 me1 Historical: - Allergies: 19:22 AYANNA INHIBITORS (Hives); me1 19:22 amlodipine; me1 19:22 Trazodone (Hives); me1 19:22 Bees (Anaphylaxis); me1 19:22 hydrochlorothiazide; me1 19:22 Morphine; me1 19:22 bisoprolol-hydrochlorothiazide; me1 19:22 empagliflozin; me1 19:22 insulin detemir; me1 - PMHx: 19:22 acid reflux; Diabetes - IDDM; Hyperlipidemia; Hypertension; Hypothyroidism; Sleep apnea;me1 - PSHx: 19:22 Cholecystectomy; cataract bilat (Unknown); carpal tunnel bilaterally (Unknown); ulnar me1 nerve surgery bilat (Unknown); Coronary Angioplasty; inspire implant for sleep apnea; - Immunization history:: Adult Immunizations up to date. - Infectious Disease History:: Denies. - Social history:: Smoking status: Patient reports use of chewing tobacco. Patient/guardian denies using tobacco, but has a distant history of tobacco abuse. Screenin:19 [facility] ED Fall Risk Assessment (Adult) History of falling in the last 3 months, kt5 including since admission No falls in past 3 months (0 pts) Confusion or Disorientation No (0 pts) Intoxicated or Sedated No (0 pts) Impaired Gait No (0 pts) Mobility Assist Device Used No (0 pt) Altered Elimination No (0 pt) Score/Fall Risk Level 0 - 2 = Low Risk Oriented to surroundings, Maintained a safe environment. Abuse screen: Denies threats or abuse. Nutritional screening: No deficits noted. Tuberculosis screening: No symptoms or risk factors identified. Assessment: 19:19 General: Appears in no apparent distress. comfortable, Behavior is calm, cooperative, kt5 appropriate for age. Pain: Complains of pain in scalp and left arm Pain currently is 2 out of 10 on a pain scale. Quality of pain is described as shooting, Pain began 1 day ago. Is continuous. Neuro: No deficits noted. Quintero Agitation-Sedation Scale (RASS): 0 - Alert and Calm Level of Consciousness is awake, alert, obeys commands, Oriented to person, place, time, situation, Appropriate for age. Cardiovascular: Reports chest pain, Denies shortness of breath, Heart tones S1 S2 present Capillary refill < 3 seconds Clubbing of nail beds is absent JVD is absent Pulses are all present. Edema is absent. Respiratory: No deficits noted. Airway is patent Trachea midline Respiratory effort is even, unlabored, Respiratory pattern is regular, symmetrical, Breath sounds are clear bilaterally. GI: No deficits noted. No signs and/or symptoms were reported involving the gastrointestinal system. Abdomen is round non-distended, Bowel sounds present X 4 quads. Abd is soft and non tender X 4 quads. : No deficits noted. No signs and/or symptoms were reported regarding the genitourinary system. EENT: No deficits noted. No signs and/or symptoms were reported regarding the EENT system. Derm: No deficits noted. No signs and/or symptoms reported regarding the dermatologic system. Skin is intact, is healthy with good turgor, Skin is dry, Skin is pink, warm \\T\\ dry. Musculoskeletal: No deficits noted. No signs and/or symptoms reported regarding the musculoskeletal system. Reports tingling in left arm and neck pain 2/10 at this time. 20:12 Reassessment: Patient appears in no apparent distress at this time. Patient and/or kt5 family updated on plan of care and expected duration. Pain level reassessed. Patient is alert, oriented x 3, equal unlabored respirations, skin warm/dry/pink. Patient denies pain at this time. pt refused pain meds at this time. 21:01 General: pt back from ct, tolerated well. kt5 21:56 Reassessment: Patient appears in no apparent distress at this time. Patient and/or kt5 family updated on plan of care and expected duration. Pain level reassessed. Patient is alert, oriented x 3, equal unlabored respirations, skin warm/dry/pink. Patient denies pain at this time. Patient states feeling better. 22:25 General: provider aware of hr, no new orders. kt5 22:50 General: provider aware of hr, no new orders at this itme. kt5 22:50 Reassessment: Patient appears in no apparent distress at this time. Patient and/or kt5 family updated on plan of care and expected duration. Pain level reassessed. Patient is alert, oriented x 3, equal unlabored respirations, skin warm/dry/pink. pt states that he is feeling "anxious", provider aware. 23:20 Reassessment: Patient appears in no apparent distress at this time. Patient and/or kt5 family updated on plan of care and expected duration. Pain level reassessed. Patient is alert, oriented x 3, equal unlabored respirations, skin warm/dry/pink. Patient denies pain at this time. General:. 23:33 General: pt back from ct, tolerated well. kt5 23:43 General: pt to rr w/o complications. kt5 04/01 00:14 Reassessment: Patient appears in no apparent distress at this time. Patient and/or kt5 family updated on plan of care and expected duration. Pain level reassessed. Patient is alert, oriented x 3, equal unlabored respirations, skin warm/dry/pink. Patient denies pain at this time. Patient states feeling better. Patient states symptoms have improved. 01:03 Reassessment: Patient appears in no apparent distress at this time. Patient and/or kt5 family updated on plan of care and expected duration. Pain level reassessed. Patient is alert, oriented x 3, equal unlabored respirations, skin warm/dry/pink. Patient denies pain at this time. Patient states feeling better. Patient states symptoms have improved. 01:42 Reassessment: Patient appears in no apparent distress at this time. Patient and/or kt5 family updated on plan of care and expected duration. Pain level reassessed. Patient is alert, oriented x 3, equal unlabored respirations, skin warm/dry/pink. Patient denies pain at this time. Patient states feeling better. Patient states symptoms have improved. 02:40 Reassessment: Patient appears in no apparent distress at this time. Patient and/or kt5 family updated on plan of care and expected duration. Pain level reassessed. Patient is alert, oriented x 3, equal unlabored respirations, skin warm/dry/pink. Patient denies pain at this time. Patient states feeling better. Patient states symptoms have improved. 03:36 General: pt up ambulating to rr w/o complications. kt5 03:42 Reassessment: Patient appears in no apparent distress at this time. Patient and/or kt5 family updated on plan of care and expected duration. Pain level reassessed. Patient is alert, oriented x 3, equal unlabored respirations, skin warm/dry/pink. Patient denies pain at this time. Patient states feeling better. Patient states symptoms have improved. 03:44 General: report given to jessi chapman, all questions answered. kt5 04:21 Reassessment: Patient appears in no apparent distress at this time. Patient and/or kt5 family updated on plan of care and expected duration. Pain level reassessed. Patient is alert, oriented x 3, equal unlabored respirations, skin warm/dry/pink. Patient denies pain at this time. Patient states feeling better. Patient states symptoms have improved. General: report given to dean of admissions, all questions answered. Vital Signs: 03/31 19:18 BP 130 / 76; Pulse 50; Resp 18; Temp 98.3; Pulse Ox 100% ; Weight 93.44 kg; Height 5 me1 ft. 11 in. ; Pain 8/10; 20:13 BP 119 / 58; Pulse 45; Resp 18 S; Pulse Ox 100% on R/A; kt5 21:03 BP 122 / 60; Pulse 42; Resp 18; Pulse Ox 100% ; kt5 21:56 BP 139 / 74; Pulse 44; Resp 18; Pulse Ox 98% ; kt5 22:50 BP 122 / 69; Pulse 38; Resp 16; Pulse Ox 99% ; kt5 23:20 Pulse 39; Resp 16; Pulse Ox 99% ; kt5 23:43 BP 113 / 79; Pulse 40; Resp 16; Pulse Ox 99% ; kt5 04/01 00:14 BP 137 / 80; Pulse 80; Resp 16 S; Temp 99.6(O); Pulse Ox 99% on R/A; kt5 01:30 BP 118 / 72; Pulse 46; Resp 16; Pulse Ox 99% ; kt5 01:42 BP 117 / 76; Pulse 51; Resp 18; Pulse Ox 98% ; kt5 02:40 BP 118 / 68; Pulse 42; Resp 16; Pulse Ox 98% ; kt5 03:44 BP 127 / 70; Pulse 42; Resp 18; Temp 98.1; Pulse Ox 99% ; kt5 04:04 BP 134 / 73; Pulse 42; Resp 16 S; Temp 98.3; Pulse Ox 99% on R/A; kt5 03/31 19:18 Body Mass Index 28.73 (93.44 kg, 180.34 cm) [facility] 03/31 19:18 Pain Scale: Adult [facility] ED Course: 03/31 18:58 Patient arrived in ED. mr 19:00 Ellis Zepeda PA-C is PHCP. cp 19:00 Mary Linder MD is Attending Physician. cp 19:08 Cha Spivey, JENNIFER is Primary Nurse. kt5 19:19 Bed in low position. Call light in reach. Side rails up X 1. Adult w/ patient. Client kt5 placed on continuous cardiac and pulse oximetry monitoring. NIBP monitoring applied. site monitor on. Door closed. Warm blanket given. Pillow given. 19:22 Triage completed. me1 19:22 Arm band placed on Patient placed in an exam room. me1 19:27 Inserted saline lock: 20 gauge in right antecubital area, using aseptic technique. kt5 Blood collected. Flushed with 10 mL NS. 19:28 Basic Metabolic Panel Sent. kt5 19:28 CBC with Diff Sent. kt5 19:28 Magnesium Sent. kt5 19:28 LFT's Sent. kt5 19:28 PT-INR Sent. kt5 19:28 Troponin HS Sent. kt5 19:32 Ellis oTrre MD is Attending Physician. cp 20:27 XRAY Chest (1 view) In Process Unspecified. EDMS 21:11 CT In Process Unspecified. EDMS 23:33 CT C Spine In Process Unspecified. EDMS 23:46 Troponin High Sensitivity Sent. kt5 04/01 00:14 Provided Education on: follow up and meds. kt5 00:14 No provider procedures requiring assistance completed. kt5 Administered Medications: 03/31 19:52 Drug: Aspirin PO Chewable Tablet 324 mg PO once; 81 mg tablets x 4 Route: PO; kt5 23:04 Follow up: Response: No adverse reaction kt5 19:52 Not Given (Patient Refused): fentanyl (pf)25 mcg IVP once kt5 20:32 Drug: Magnesium Sulfate IVPB 1 grams IVPB once over 1 hrs Route: IVPB; Infused Over: 1 kt5 hrs; Site: right antecubital; 21:45 Follow up: Response: No adverse reaction kt5 23:48 Follow up: IV Status: Completed infusion kt5 21:45 Drug: Methocarbamol IVPB 1 grams IVPB once over 1 hrs; (mix in NS 100 mL) Route: IVPB; kt5 Infused Over: 1 hrs; Site: right antecubital; 23:04 Follow up: Response: No adverse reaction kt5 23:47 Follow up: IV Status: Completed infusion kt5 04/01 03:23 Drug: LORazepam PO 1 mg PO once Route: PO; kt5 04:06 Follow up: Response: No adverse reaction; Anxiety decreased kt5 Medication: 03/31 19:19 VIS not applicable for this client. kt5 Outcome: 23:25 ER care complete, transfer ordered by . 04/01 04:22 Transferred by ground EMS to [facility], kt5 Condition: improved Instructed on the need for transfer, Demonstrated understanding of 04:24 Patient left the ED. kt5 Signatures: Dispatcher [employer] EDMS Alyson Green, Reg Reg KatelynEllis, PA-C PA-C Ariana Ray, JENNIFER RN al1 Cha Spivey RN RN kt5 Corrections: (The following items were deleted from the chart) 04:23 04:04 BP 134 / 73; Pulse 42bpm; Resp 16bpm; Spontaneous; Pulse Ox 99% RA; kt5 kt5 00:14 Discharged to home ambulatory, kt5 kt5 00:14 Condition: improved kt5 kt5 00:14 Discharge instructions given to patient, Instructed on discharge instructions, kt5 follow up and referral plans. Demonstrated understanding of instructions, follow-up care, medications, Prescriptions given X 6 kt5
--- NOTE | 2025-03-31 23:26 | EDPHYS ---
Physician Documentation [facility] Name: Mack Charles Age: 59 yrs Sex: Male : 1965 Arrival Date: 03/31/2025 Time: 18:55 Bed 20 Private MD: ED Physician Ellis Torre HPI: 03/31 19:20 This 59 yrs old Male presents to ER via Ambulatory with complaints of Arm Pain. cp 19:20 The patient or guardian complains of pain, that is acute. The complaints affect the cp inner side of left upper arm. 19:20 Context: resulted from unknown cause. 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 19:20 Treatment prior to arrival includes: no previous treatment. cp 19:20 Associated signs and symptoms: Pertinent positives: chronic neck pain, Pertinent cp negatives: fever, vomiting, arm injury. 19:20 Severity of symptoms: in the emergency department the symptoms are unchanged, despite cp home interventions. Historical: - Allergies: 19:22 AYANNA INHIBITORS (Hives); me1 19:22 amlodipine; me1 19:22 Trazodone (Hives); me1 19:22 Bees (Anaphylaxis); me1 19:22 hydrochlorothiazide; me1 19:22 Morphine; me1 19:22 bisoprolol-hydrochlorothiazide; me1 19:22 empagliflozin; me1 19:22 insulin detemir; me1 - PMHx: 19:22 acid reflux; Diabetes - IDDM; Hyperlipidemia; Hypertension; Hypothyroidism; Sleep apnea;me1 - PSHx: 19:22 Cholecystectomy; cataract bilat (Unknown); carpal tunnel bilaterally (Unknown); ulnar me1 nerve surgery bilat (Unknown); Coronary Angioplasty; inspire implant for sleep apnea; - Immunization history:: Adult Immunizations up to date. - Infectious Disease History:: Denies. - Social history:: Smoking status: Patient reports use of chewing tobacco. Patient/guardian denies using tobacco, but has a distant history of tobacco abuse. ROS: 19:25 Constitutional: Negative for body aches, chills, fever, poor PO intake, cp 19:25 Eyes: Negative for injury, pain, redness, and discharge, cp 19:25 Neck: Positive for pain with movement, pain at rest, 19:25 Cardiovascular: Positive for chest pain, Negative for edema, palpitations, 19:25 Respiratory: Negative for cough, shortness of breath, wheezing, 19:25 Abdomen/GI: Negative for abdominal pain, vomiting, diarrhea, constipation, 19:25 Back: Negative for pain at rest, pain with movement, 19:25 MS/extremity: Positive for pain, of the left arm, Negative for injury or acute deformity, decreased range of motion, paresthesias, 19:25 Neuro: Negative for altered mental status, numbness, syncope, near syncope, weakness, 19:25 All other systems are negative, Exam: 19:30 Constitutional: The patient appears in no acute distress, alert, awake, cp non-diaphoretic, non-toxic, well developed, well nourished, uncomfortable, 19:30 Head/Face: Normocephalic, atraumatic. cp 19:30 Eyes: Periorbital structures: appear normal, Conjunctiva: normal, no exudate, no injection, Sclera: no appreciated abnormality, Lids and lashes: appear normal, bilaterally, 19:30 ENT: External ear(s): are unremarkable, Nose: is normal, Mouth: Lips: moist, Oral mucosa: moist, Posterior pharynx: Airway: no evidence of obstruction, patent, 19:30 Neck: C-spine: vertebral tenderness, is not appreciated, crepitus, is not appreciated, ROM/movement: pain, that is mild, with any movement, limited range of motion, is not appreciated, 19:30 Chest/axilla: Inspection: normal, Palpation: is normal, no crepitus, no tenderness, 19:30 Cardiovascular: Rate: bradycardic, Rhythm: regular, Pulses: Pulses are 2+ in left radial artery. Edema: is not appreciated, JVD: is not appreciated, 19:30 Respiratory: the patient does not display signs of respiratory distress, Respirations: normal, no use of accessory muscles, no retractions, labored breathing, is not present, Breath sounds: are clear throughout, no decreased breath sounds, no stridor, no wheezing, 19:30 Abdomen/GI: Inspection: abdomen appears normal, 19:30 Back: pain, is absent, ROM is normal, 19:30 Musculoskeletal/extremity: Extremities: grossly normal except: noted in the inner left upper arm: pain, tenderness, There is no evidence of decreased ROM, deformity, ROM: full active range of motion, in the left hand and left arm, the left hand and left arm Sensation intact. 19:30 Neuro: Orientation: to person, place \T\ time. Mentation: is normal, Motor: moves all fours, no focal deficits, Sensation: no obvious gross deficits, 19:36 ECG was reviewed by the Attending Physician. cp Vital Signs: 19:18 BP 130 / 76; Pulse 50; Resp 18; Temp 98.3; Pulse Ox 100% ; Weight 93.44 kg; Height 5 me1 ft. 11 in. ; Pain 8/10; 20:13 BP 119 / 58; Pulse 45; Resp 18 S; Pulse Ox 100% on R/A; kt5 21:03 BP 122 / 60; Pulse 42; Resp 18; Pulse Ox 100% ; kt5 21:56 BP 139 / 74; Pulse 44; Resp 18; Pulse Ox 98% ; kt5 22:50 BP 122 / 69; Pulse 38; Resp 16; Pulse Ox 99% ; kt5 23:20 Pulse 39; Resp 16; Pulse Ox 99% ; kt5 23:43 BP 113 / 79; Pulse 40; Resp 16; Pulse Ox 99% ; kt5 04/01 00:14 BP 137 / 80; Pulse 80; Resp 16 S; Temp 99.6(O); Pulse Ox 99% on R/A; kt5 01:30 BP 118 / 72; Pulse 46; Resp 16; Pulse Ox 99% ; kt5 01:42 BP 117 / 76; Pulse 51; Resp 18; Pulse Ox 98% ; kt5 02:40 BP 118 / 68; Pulse 42; Resp 16; Pulse Ox 98% ; kt5 03:44 BP 127 / 70; Pulse 42; Resp 18; Temp 98.1; Pulse Ox 99% ; kt5 04:04 BP 134 / 73; Pulse 42; Resp 16 S; Temp 98.3; Pulse Ox 99% on R/A; kt5 03/31 19:18 Body Mass Index 28.73 (93.44 kg, 180.34 cm) [facility] 03/31 19:18 Pain Scale: Adult [facility] MDM: 03/31 19:10 Medical Screening Exam initiated cp 20:30 Differential diagnosis: dislocation, closed fracture, contusion, tendonitis, acute CO, cp angina, cervical radiculopathy, cardiac arrythmia. 23:31 ED course: discussed results of today's testing. VS observed with patient having HR in the 30's. Recommend admission for continued monitoring. 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 23:35 Data reviewed: vital signs, nurses notes, lab test result(s), EKG, radiologic studies, CT scan, plain films, and as a result, I will transfer patient. 23:35 I considered the following discharge prescriptions or medication management in the emergency department Medications were administered in the Emergency Department. See MAR. Independent interpretation of the following test(s) in the Emergency Department EKG: See my EKG interpretation above X-Ray: My interpretation is chest image negative for infiltrates. Care significantly affected by the following chronic conditions: Diabetes, Hypertension. Counseling: I had a detailed discussion with the patient and/or guardian regarding the historical points, exam findings, and any diagnostic results supporting the discharge/admit diagnosis, lab results, radiology results. Response to treatment: the patient's symptoms have mildly improved after treatment. 03/31 19:15 Order name: Basic Metabolic Panel; Complete Time: 19:59 03/31 19:59 Interpretation: Normal except: CL 111; GLUC 130; BUN 28; CRE 1.54; GFR 52. 03/31 19:15 Order name: CBC with Diff; Complete Time: 19:59 03/31 19:59 Interpretation: Normal except: RBC 3.40; HGB 11.0; HCT 32.0; EOSINOPHIL % 8.5; EOSA 0.6. 03/31 19:15 Order name: LFT's; Complete Time: 19:59 03/31 19:15 Order name: Magnesium; Complete Time: 19:59 03/31 23:15 Interpretation: Reviewed. 03/31 19:15 Order name: PT-INR; Complete Time: 19:59 03/31 19:15 Order name: Troponin HS; Complete Time: 19:59 03/31 23:17 Order name: Troponin High Sensitivity; Complete Time: 00:14 04/01 00:14 Interpretation: Reviewed. 03/31 19:15 Order name: XRAY Chest (1 view); Complete Time: 20:29 03/31 20:30 Interpretation: Report review. cp 03/31 21:09 Order name: CT EDMS 03/31 23:17 Order name: CT C Spine cp 03/31 19:15 Order name: Cardiac monitoring; Complete Time: 19:28 cp 03/31 19:15 Order name: EKG - Nurse/Tech; Complete Time: 19:28 cp 03/31 19:15 Order name: IV Saline Lock; Complete Time: 19:28 cp 03/31 19:15 Order name: Labs collected and sent; Complete Time: 19:28 cp 03/31 19:15 Order name: O2 Per Protocol; Complete Time: 19:28 cp 03/31 19:15 Order name: O2 Sat Monitoring; Complete Time: 19:28 cp EC:36 Rate is 48 beats/min. Rhythm is regular. SC interval is normal. QRS interval is normal. cp QT interval is normal. T waves are Inverted in lead aVR. Interpreted by me. Reviewed by me. Administered Medications: 19:52 Drug: Aspirin PO Chewable Tablet 324 mg PO once; 81 mg tablets x 4 Route: PO; kt5 23:04 Follow up: Response: No adverse reaction kt5 19:52 Not Given (Patient Refused): fentanyl (pf)25 mcg IVP once kt5 20:32 Drug: Magnesium Sulfate IVPB 1 grams IVPB once over 1 hrs Route: IVPB; Infused Over: 1 kt5 hrs; Site: right antecubital; 21:45 Follow up: Response: No adverse reaction kt5 23:48 Follow up: IV Status: Completed infusion kt5 21:45 Drug: Methocarbamol IVPB 1 grams IVPB once over 1 hrs; (mix in NS 100 mL) Route: IVPB; kt5 Infused Over: 1 hrs; Site: right antecubital; 23:04 Follow up: Response: No adverse reaction kt5 23:47 Follow up: IV Status: Completed infusion kt5 04/01 03:23 Drug: LORazepam PO 1 mg PO once Route: PO; kt5 04:06 Follow up: Response: No adverse reaction; Anxiety decreased kt5 Disposition Summary: 03/31/25 23:25 Transfer Ordered Notes: Transfer Location: [facility] cp Reason: Higher level of care cp Condition: Stable cp Problem: new cp Symptoms: have improved cp Accepting Physician: Doctor(04/01/25 04:24) kt5 Diagnosis - Chest pain, unspecified cp - Bradycardia, unspecified cp Forms: - Medication Reconciliation Form cp - SBAR form cp Addendum: 04/05/2025 11:42 Co-signature as Attending Physician, Ellis Torre MD I agree with the assessment and c camacho plan of care. Signatures: Dispatcher [employer] EDVT Ellis Torre MD MD cha Page, Corey, PA-C PA-C cp Ariana Waters, RN RN me1 Cha Spivey RN RN kt5 Corrections: (The following items were deleted from the chart) 03/31 19:16 19:15 BASIC METABOLIC PANEL+C.LAB.BRZ ordered. EDMS EDMS 19:16 19:15 CBC+H.LAB.BRZ ordered. EDMS EDMS 19:16 19:15 HEPATIC FUNCTION+C.LAB.BRZ ordered. EDMS EDMS 19:16 19:15 MAGNESIUM+C.LAB.BRZ ordered. EDMS EDMS 19:16 19:15 PROTIME (+INR)+COAG.LAB.BRZ ordered. EDMS EDMS 19:16 19:15 Troponin High Sensitivity+C.LAB.BRZ ordered. EDMS EDMS 19:16 19:16 Chest Single View+RAD.RAD.BRZ ordered. EDMS EDMS 20:29 20:29 Head Brain Wo Cont+CT.RAD.BRZ ordered. EDMS EDMS 04/01 04:24 03/31 23:25 Doctor yaneli kt5 04/02 04:03 03/31 23:31 ED course: discussed results of today's testing. VS observed with patient cp having HR in the 30's. Recommend admission for continued monitoring. Patient requests transfer to [facility] for cardiology service. cp
[2025-04-01] MEDS ORDERED: LORAZEPAM 1 MG TABLET ONE (03:20)
[2025-04-01 05:21] VITALS: O2SAT 99
[2025-04-01 05:22] VITALS: BP 134/73; TEMP 98.3
--- NOTE | 2025-04-01 06:18 | RAD REPORT ---
EXAM: CT Cervical Spine Without Intravenous Contrast CLINICAL HISTORY: The patient is 59 years old and is Male; PAIN TECHNIQUE: Axial computed tomography images of the cervical spine without intravenous contrast. Sagittal and cor onal reformatted images were created and reviewed. This CT exam was performed using one or more of the following dose reduction techniques: automated exposure control, adjustment of the mA and/or kV a ccording to patient size, and/or use of iterative reconstruction technique. COMPARISON: No relevant prior studies available. FINDINGS: VERTEBRAE: The vertebral body heights and alignment are maintained. No acute fracture. DISCS/SPINAL CANAL/NEURAL FORAMINA: The intervertebral disc spaces are maintained. No spinal canal st enosis. SOFT TISSUES: The soft tissues are normal. LUNG APICES: The lung apices are clear. IMPRESSION: No fracture or malalignment of the cervical spine. Electronically signed by: Amisha Gould MD 04/01/2025 12:55 AM CDT RP Due to temporary technical issues with the PACS/[employer] reporting system, reports are being barbi d by the in-house radiologist without review as a courtesy to ensure prompt reporting the interpreting radiologist is fully responsible for the content of the report. Transcribed Date/Time: 04/01/2025 6:18 AM
== END 2025-04-01 04:24 | disposition short-term general hospital (02) ==
LOC: ER 18:55
DX: R07.9 Chest pain, unspecified (principal); R00.1 Bradycardia, unspecified; M54.2 Cervicalgia; I10 Essential (primary) hypertension
CPT/HCPCS: 96365; 93005; 85025; 80048; 36415; 83735; 85610; 80076; 84484 ×2; 70450; 72125; 71045; 99285; 96366; J3475; J2800; J3010